=== PATIENT | male | born 1955 | race Caucasian/White ===

== ENCOUNTER → 2017-05-12 | Outpatient (CLI) | payer OTHER | END | disposition home or self-care (01) | LOC: KCIC 12:45 | DX: M25.531 Pain in right wrist (principal); M21.831 Other specified acquired deformities of right forearm; W19.XXXA Unspecified fall, initial encounter; Y93.89 Activity, other specified; Y92.89 Other specified places as the place of occurrence of the external cause; Y99.8 Other external cause status | CPT/HCPCS: 73110 ==

== ENCOUNTER 2018-08-31 12:14 | Inpatient (IN) | payer OTHER ==
[~2018-08-31] VITALS: Ht 167.6 cm; Wt 78.1 kg
[2018-08-31] MEDS ORDERED: IPRATRPIUM/ALBUTEROL 0.5/2.5MG 3 ML NEBU. NEB ONE (12:45)
[2018-08-31] MEDS ORDERED: methylPREDNISolone SOD SUCC PF 125 MG/2 ML VIAL. IV ONE (12:45)
--- NOTE | 2018-08-31 12:54 | RAD ---
EXAM: Chest, single view. HISTORY: Shortness of breath. COMPARISON: None. FINDINGS: A frontal view of the chest is obtained. There is no infiltrate, pleural effusion or pneumothorax. There is a prominent cardiac silhouette. There is a right internal jugular catheter overlying the superior vena cava. IMPRESSION: 1. Prominent cardiac silhouette, a component of which is due to portable technique. 2. Suspected right internal jugular catheter overlying the superior vena cava. No pneumothorax is seen. Electronically signed by: Jacqui Mccarty MD (08/31/2018 12:51 PM) [facility]
[2018-08-31 13:17] LABS: BASO % 0 % (0-3); EOS % 1 % (0-3); HEMATOCRIT 40.6 % (39.0-53.0); HEMOGLOBIN 13.1 g/dL (13.0-17.5); LYMPH # 0.9 x10^3/uL (1.0-4.8); LYMPH % 12 % (24-48); MEAN CORPUSCULAR HEMOGLOBIN 30 pg (25-35); MEAN CORPUSCULAR HGB CONC 32 g/dL (31-37); MEAN CORPUSCULAR VOLUME 92 fL (79-100); MONO # 0.8 x10^3/uL (0.0-1.1); MONO % 11 % (0-9); NEUT # 5.7 x10^3uL (1.8-7.7); NEUT % 76 % (31-73); PLATELET COUNT 113 x10^3/uL (140-400); RED CELL DISTRIBUTION WIDTH 13.8 % (11.5-14.5); WHITE BLOOD COUNT 7.5 x10^3/uL (4.0-11.0)
[2018-08-31 13:27] LABS: CALCIUM 8.7 mg/dL (8.5-10.1); CREATININE 0.8 mg/dL (0.7-1.3); GFR 97.3; POTASSIUM 3.7 mmol/L (3.5-5.1)
[2018-08-31 13:34] LABS: ALBUMIN 3.7 g/dL (3.4-5.0); TOTAL BILIRUBIN 0.4 mg/dL (0.2-1.0); TOTAL PROTEIN 7.4 g/dL (6.4-8.2)
[2018-08-31] MEDS ORDERED: DOXYCYCLINE HYCLATE 100 MG in IV DEXTROSE 5% 100ML 100 ML IV ONE (14:00)
[2018-08-31] MEDS ORDERED: ASPIRIN CHEWABLE 81 MG TABLET. PO ONE (14:00)
[2018-08-31] MEDS ORDERED: IOHEXOL 350 MG/ML 100 ML VIAL. IV ONE (14:15)
--- NOTE | 2018-08-31 14:29 | PDOC1 ---
History and Physical Date of Admission Date of Admission DATE: 08/31/18 TIME: 14:29 Identification/Chief Complaint Chief Complaint Patient is a 62 year old P/W SOB 4 DAYS AGO seen in ER NO CP NO FEVER , COUGHING INCREASING YELLOW SPUTUM SAT 84 IN TRIAGE. NOT ON HOME OXYGEN. SYMPTOMS WORSENING WITH TIME CT PE NEG FOR EMBOLUS. Past Medical History Past Medical History Past Medical History Past Medical History Past Medical History: COPD, Diabetes-Type II, Hypertension Past Surgical History: No Surgical History Alcohol Use: None Drug Use: None remote smoker Cardiovascular: HTN, Hyperlipidemia Pulmonary: COPD Musculoskeletal: Osteoarthritis Rheumatologic: No pertinent hx Infectious disease: No pertinent hx ENT: No pertinent hx Dermatology: No pertinent hx Family History Family History: Coronary Artery Disease, Hypertension Social History Smoke: Quit ALCOHOL: occassional Drugs: None Current Medications Current Medications Current Medications Albuterol/ Ipratropium (Duoneb) 3 ml 1X ONCE NEB Last administered on 08/31/18at 12:36; Start 08/31/18 at 12:45; Stop 08/31/18 at 13:36; Status DC Methylprednisolone Sodium Succinate (SOLU-Medrol 125MG VIAL) 125 mg 1X ONCE IV Last administered on 08/31/18at 13:52; Start 08/31/18 at 12:45; Stop 08/31/18 at 13:36; Status DC Doxycycline Hyclate 100 mg/ Dextrose 100 ml @ 50 mls/hr 1X ONCE IV Last administered on 08/31/18at 14:14; Start 08/31/18 at 14:00; Stop 08/31/18 at 15:59 Aspirin (Children'S Aspirin) 324 mg 1X ONCE PO Last administered on 08/31/18at 14:03; Start 08/31/18 at 14:00; Stop 08/31/18 at 14:01; Status DC Albuterol/ Ipratropium (Duoneb) 3 ml RTQID NEB ; Start 08/31/18 at 16:00; Stop 09/01/18 at 15:59 Iohexol (Omnipaque 350 Mg/ml) 90 ml 1X ONCE IV ; Start 08/31/18 at 14:15; Stop 08/31/18 at 14:16; Status DC Allergies Allergies: Coded Allergies: No Known Drug Allergies (Unverified , 08/31/18) ROS Review of System Review of Systems Review of Systems Constitutional: Denies fever or chills [] Eyes: Denies change in visual acuity, redness, or eye pain [] HENT: COUGH : Denies dysuria or hematuria [] PULM, SEE ABOVE HPI Musculoskeletal: Denies back pain or joint pain [] Integument: Denies rash or skin lesions [] Neurologic: Denies headache, focal weakness or sensory changes [] Endocrine: Denies polyuria or polydipsia [] 14 PT systems were reviewed and found to be within normal limits, except as documented General: YES: Fatigue PSYCHOLOGICAL ROS: No: Anxiety, Behavioral Disorder, Concentration difficultie, Decreased libido, Depression, Disorientation, Hallucinations, Hostility, Irritablity, Memory difficulties, Mood Swings, Obsessive thoughts, Physical abuse, Sexual abuse, Sleep disturbances, Suicidal ideation, Other Eyes: No Blurry vision, No Decreased vision, No Double vision, No Dry eyes, No Excessive tearing, No Eye Pain, No Itchy Eyes, No Loss of vision, No Photophobia, No Scotomata, No Uses contacts, No Uses glasses, No Other HEENT: No: Heacaches, Visual Changes, Hearing change, Nasal congestion, Nasal discharge, Oral lesions, Sinus pain, Sore Throat, Epistaxis, Sneezing, Snoring, Tinnitus, Vertigo, Vocal changes, Other ALLERGY AND IMMUNOLOGY: No: Hives, Insect Bite Sensitivity, Itchy/Watery Eyes, Nasal Congestion, Post Nasal Drip, Seasonal Allergies, Other Hematological and Lymphatic: No: Bleeding Problems, Blood Clots, Blood Transfusions, Brusing, Night Sweats, Pallor, Swollen Lymph Nodes, Other Respiratory: YES: Cough, Shortness of breath, SOB with excertion, Sputum Changes; No: Hemoptysis, Orthopnea, Pleuritic Pain, Stridor, Tachypnea, Wheezing, Other Cardiovascular: yes Palpitations Gastrointestinal: No Nausea, No Vomiting, No Abdominal Pain, No Diarrhea, No Constipation, No Melena, No Hematochezia, No Other Genitourinary: No Dysuria, No Frequency, No Incontinence, No Hematuria, No Retention, No Discharge, No Urgency, No Pain, No Flank Pain, No Other, No , No , No , No , No , No , No Musculoskeletal: No Gait Disturbance, No Joint Pain, No Joint Stiffness, No Joint Swelling, No Muscle Pain, No Muscular Weakness, No Pain In:, No Swelling In:, No Other Neurological: No Behavorial Changes, No Bowel/Bladder ControlChng, No Confusion, No Dizziness, No Gait Disturbance, No Headaches, No Impaired Coord/balance, No Memory Loss, No Numbness/Tingling, No Seizures, No Speech Problems, No Tremors, No Visual Changes, No Weakness, No Other Skin: No Dry Skin, No Eczema, No Hair Changes, No Lumps, No Mole Changes, No Mottling, No Nail Changes, No Pruritus, No Rash, No Skin Lesion Changes, No Other, No Acne Physical Exam Physical Exam Physical Exam Physical Exam Constitutional: Well developed, well nourished, MOD acute distress, non-toxic appearance. [] HENT: Normocephalic, atraumatic, bilateral external ears normal, oropharynx moist, no oral exudates, nose normal. [] Eyes: PERRLA, EOMI, conjunctiva normal, no discharge. [] Neck: Normal range of motion, no tenderness, supple, no stridor. [] Cardiovascular:Heart rate regular rhythm, no murmur BUT DIFFICULT EXAM Lungs & Thorax: QWHEEZING NOTED AND INCREASED RESP EFFORT Abdomen: Bowel sounds normal, soft, no tenderness, no masses, no pulsatile masses. [] Skin: Warm, dry, no erythema, no rash. [] Back SCOLIOSIS NOTED Extremities: No tenderness, no cyanosis, no clubbing, ROM intact, TRACE EDEMA Neurologic: Alert and oriented X 3, normal motor function, normal sensory function, no focal deficits noted. [] Psychologic: Affect normal, judgement normal, mood normal. [] General: Alert, Oriented X3, Cooperative, moderate distress HEENT: Atraumatic, PERRLA, EOMI, Mucous membr. moist/pink Lungs: Other (mod exp wheezesbilaterally) Heart: RRR Breasts: Not examined Abdomen: Normal bowel sounds, Soft Rectal Exam: not examined PELVIC: Examination not indicated Extremities: No cyanosis Neuro: Normal speech, Cranial nerves 3-12 NL Psych/Mental Status: Mental status NL, Mood NL Vitals Vitals Vital Signs Date Time Temp Pulse Resp B/P (MAP) Pulse Ox O2 Delivery O2 Flow Rate FiO2 08/31/18 12:37 97 Nasal Cannula 3.0 08/31/18 12:30 97.9 110 31 164/101 (122) 97.9 Labs Labs Laboratory Tests Test 08/31/18 13:05 White Blood Count 7.5 x10^3/uL (4.0-11.0) Red Blood Count 4.40 x10^6/uL (4.30-5.70) Hemoglobin 13.1 g/dL (13.0-17.5) Hematocrit 40.6 % (39.0-53.0) Mean Corpuscular Volume 92 fL (79-100) Mean Corpuscular Hemoglobin 30 pg (25-35) Mean Corpuscular Hemoglobin Concent 32 g/dL (31-37) Red Cell Distribution Width 13.8 % (11.5-14.5) Platelet Count 113 x10^3/uL (140-400) Neutrophils (%) (Auto) 76 % (31-73) Lymphocytes (%) (Auto) 12 % (24-48) Monocytes (%) (Auto) 11 % (0-9) Eosinophils (%) (Auto) 1 % (0-3) Basophils (%) (Auto) 0 % (0-3) Neutrophils # (Auto) 5.7 x10^3uL (1.8-7.7) Lymphocytes # (Auto) 0.9 x10^3/uL (1.0-4.8) Monocytes # (Auto) 0.8 x10^3/uL (0.0-1.1) Eosinophils # (Auto) 0.0 x10^3/uL (0.0-0.7) Basophils # (Auto) 0.0 x10^3/uL (0.0-0.2) Prothrombin Time 13.0 SEC (11.7-14.0) Prothromb Time International Ratio 1.0 (0.8-1.1) Sodium Level 137 mmol/L (136-145) Potassium Level 3.7 mmol/L (3.5-5.1) Chloride Level 98 mmol/L (98-107) Carbon Dioxide Level 31 mmol/L (21-32) Anion Gap 8 (6-14) Blood Urea Nitrogen 10 mg/dL (8-26) Creatinine 0.8 mg/dL (0.7-1.3) Estimated GFR (Cockcroft-Gault) 97.3 BUN/Creatinine Ratio 13 (6-20) Glucose Level 151 mg/dL (70-99) Lactic Acid Level 2.7 mmol/L (0.4-2.0) Calcium Level 8.7 mg/dL (8.5-10.1) Total Bilirubin 0.4 mg/dL (0.2-1.0) Aspartate Amino Transf (AST/SGOT) 31 U/L (15-37) Alanine Aminotransferase (ALT/SGPT) 92 U/L (16-63) Alkaline Phosphatase 63 U/L (46-116) Troponin I Quantitative 0.058 ng/mL (0.000-0.055) UM-Nrf-N-Type Natriuretic Peptide 5921 pg/mL (0-124) Total Protein 7.4 g/dL (6.4-8.2) Albumin 3.7 g/dL (3.4-5.0) Albumin/Globulin Ratio 1.0 (1.0-1.7) Laboratory Tests Test 08/31/18 13:05 White Blood Count 7.5 x10^3/uL (4.0-11.0) Red Blood Count 4.40 x10^6/uL (4.30-5.70) Hemoglobin 13.1 g/dL (13.0-17.5) Hematocrit 40.6 % (39.0-53.0) Mean Corpuscular Volume 92 fL (79-100) Mean Corpuscular Hemoglobin 30 pg (25-35) Mean Corpuscular Hemoglobin Concent 32 g/dL (31-37) Red Cell Distribution Width 13.8 % (11.5-14.5) Platelet Count 113 x10^3/uL (140-400) Neutrophils (%) (Auto) 76 % (31-73) Lymphocytes (%) (Auto) 12 % (24-48) Monocytes (%) (Auto) 11 % (0-9) Eosinophils (%) (Auto) 1 % (0-3) Basophils (%) (Auto) 0 % (0-3) Neutrophils # (Auto) 5.7 x10^3uL (1.8-7.7) Lymphocytes # (Auto) 0.9 x10^3/uL (1.0-4.8) Monocytes # (Auto) 0.8 x10^3/uL (0.0-1.1) Eosinophils # (Auto) 0.0 x10^3/uL (0.0-0.7) Basophils # (Auto) 0.0 x10^3/uL (0.0-0.2) Prothrombin Time 13.0 SEC (11.7-14.0) Prothromb Time International Ratio 1.0 (0.8-1.1) Sodium Level 137 mmol/L (136-145) Potassium Level 3.7 mmol/L (3.5-5.1) Chloride Level 98 mmol/L (98-107) Carbon Dioxide Level 31 mmol/L (21-32) Anion Gap 8 (6-14) Blood Urea Nitrogen 10 mg/dL (8-26) Creatinine 0.8 mg/dL (0.7-1.3) Estimated GFR (Cockcroft-Gault) 97.3 BUN/Creatinine Ratio 13 (6-20) Glucose Level 151 mg/dL (70-99) Lactic Acid Level 2.7 mmol/L (0.4-2.0) Calcium Level 8.7 mg/dL (8.5-10.1) Total Bilirubin 0.4 mg/dL (0.2-1.0) Aspartate Amino Transf (AST/SGOT) 31 U/L (15-37) Alanine Aminotransferase (ALT/SGPT) 92 U/L (16-63) Alkaline Phosphatase 63 U/L (46-116) Troponin I Quantitative 0.058 ng/mL (0.000-0.055) LR-Wiy-X-Type Natriuretic Peptide 5921 pg/mL (0-124) Total Protein 7.4 g/dL (6.4-8.2) Albumin 3.7 g/dL (3.4-5.0) Albumin/Globulin Ratio 1.0 (1.0-1.7) Images Images PROCEDURE: CT ANGIOGRAPHY CHEST Examination: CT angiography chest HISTORY: History of cough, shortness of breath COMPARISON: None available. TECHNIQUE: Axial CT angiographic images of chest were performed with IV contrast. Coronal and sagittal 3-D MIP reformats are performed. Exposure: One or more of the following individualized dose reduction techniques were utilized for this examination: 1. Automated exposure control 2. Adjustment of the mA and/or kV according to patient size 3. Use of iterative reconstruction technique FINDINGS: The central airways are patent. Mild cardiomegaly. The caliber of the aorta grossly appears unremarkable. There is no evidence of filling defect identified in the main pulmonary arterial trunk and right and left main pulmonary arteries and the visualized lobar, segmental branches of the pulmonary arteries. Coronary artery calcifications identified. Small pleural effusion identified in the left. Trace right pleural effusion. There is reflux of contrast into the hepatic veins. Minimal airspace opacities identified in the left lung base. The visualized liver, spleen, adrenals grossly appears unremarkable. Bony fusion of the lower thoracic vertebral bodies identified with kyphosis. Moderate degenerative changes thoracic spine. IMPRESSION: 1. No evidence of pulmonary embolism. 2. Coronary artery calcifications. 3. There is reflux of contrast into the hepatic veins. Correlate for elevated right heart pressures with mild congestive changes. 4. Mild left lung base airspace opacities likely atelectasis or infiltrates with trace bilateral pleural effusions. Electronically signed by: Lyle Lopez MD (08/31/2018 3:28 PM) [id number] EXAM: Chest, single view. HISTORY: Shortness of breath. COMPARISON: None. FINDINGS: A frontal view of the chest is obtained. There is no infiltrate, pleural effusion or pneumothorax. There is a prominent cardiac silhouette. There is a right internal jugular catheter overlying the superior vena cava. IMPRESSION: 1. Prominent cardiac silhouette, a component of which is due to portable technique. 2. Suspected right internal jugular catheter overlying the superior vena cava. No pneumothorax is seen. Electronically signed by: Jacqui Mccarty MD (08/31/2018 12:51 PM) [facility] VTE Prophylaxis Ordered VTE Prophylaxis Devices: Yes VTE Pharmacological Prophylaxi: Yes Assessment/Plan Assessment/Plan IMPRESSION: 1. acute hypoxic resp failure No evidence of pulmonary embolism. 2. Coronary artery calcifications. 3. reflux of contrast into the hepatic veins. Correlate for elevated right heart pressures with mild congestive changes. 4. lung base airspace opacities likely atelectasis or infiltrates with trace bilateral pleural effusions. 5. hypertensive urgency 6. ACUTE COPD EXAC 7. MILD elevation troponin i plan admit cvc icu bed serial troponin i pulm consult cardiology consult echo dvt prophylaxis iv steroids emperic iv doxy iv hydralazine 10mg q 4 hrs prn bp support 36 min cc time TERESE CORADO MD Aug 31, 2018 14:29
[2018-08-31 15:00] VITALS: BP 180/116
--- NOTE | 2018-08-31 15:11 | EKG ---
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 Electronically Signed On 09-04-2018 9:19:47 CDT by Jaguar Rodriguez
--- NOTE | 2018-08-31 15:20 | NUR ---
Patient arrived to room 263 via bed from ER at 1520. Patient A&OX4. No complaints of pain. The patient, SAE SMALLS, 62 y/o, M admitted by TERESE CORADO MD, was given written information regarding hospital policies, unit procedures and contact persons. Valuables were checked and noted. Will continue to monitor.
--- NOTE | 2018-08-31 15:31 | RAD ---
Examination: CT angiography chest HISTORY: History of cough, shortness of breath COMPARISON: None available. TECHNIQUE: Axial CT angiographic images of chest were performed with IV contrast. Coronal and sagittal 3-D MIP reformats are performed. Exposure: One or more of the following individualized dose reduction techniques were utilized for this examination: 1. Automated exposure control 2. Adjustment of the mA and/or kV according to patient size 3. Use of iterative reconstruction technique FINDINGS: The central airways are patent. Mild cardiomegaly. The caliber of the aorta grossly appears unremarkable. There is no evidence of filling defect identified in the main pulmonary arterial trunk and right and left main pulmonary arteries and the visualized lobar, segmental branches of the pulmonary arteries. Coronary artery calcifications identified. Small pleural effusion identified in the left. Trace right pleural effusion. There is reflux of contrast into the hepatic veins. Minimal airspace opacities identified in the left lung base. The visualized liver, spleen, adrenals grossly appears unremarkable. Bony fusion of the lower thoracic vertebral bodies identified with kyphosis. Moderate degenerative changes thoracic spine. IMPRESSION: 1. No evidence of pulmonary embolism. 2. Coronary artery calcifications. 3. There is reflux of contrast into the hepatic veins. Correlate for elevated right heart pressures with mild congestive changes. 4. Mild left lung base airspace opacities likely atelectasis or infiltrates with trace bilateral pleural effusions. Electronically signed by: Lyle Lopze MD (08/31/2018 3:28 PM) [facility]
[2018-08-31 15:37] VITALS: BP 175/101
[2018-08-31 15:54] VITALS: BP 172/98
[2018-08-31] MEDS ORDERED: LISI10TA2 PO (16:07)
[2018-08-31] MEDS ORDERED: METO-239 PO (16:07)
[2018-08-31] MEDS ORDERED: METF500T9 PO (16:07)
[2018-08-31] MEDS: IPRATRPIUM/ALBUTEROL 0.5/2.5MG 3 ML NEBU. NEB SCH ×4 (16:32→23:30)
--- NOTE | 2018-08-31 16:51 | PHYS DOC ---
Past Medical History Past Medical History: COPD, Diabetes-Type II, Hypertension Past Surgical History: No Surgical History Alcohol Use: None Drug Use: None Adult General Chief Complaint Chief Complaint: SHORTNESS OF BREATH HPI HPI Patient is a 62 year old P/W SOB 4 DAYS AGO GETTING WORSE NO CP NO FEVER SOME COUGHING INCREASING YELLOW SPUTUM SAT 84 IN TRIAGE. NOT ON HOME OXYGEN. NO OTHER COMPLAINTS SYMPTOMS WORSENING WITH TIME. MODERATE WORSE WITHE EXEDRTION. Review of Systems Review of Systems Constitutional: Denies fever or chills [] Eyes: Denies change in visual acuity, redness, or eye pain [] HENT: : Denies dysuria or hematuria [] Musculoskeletal: Denies back pain or joint pain [] Integument: Denies rash or skin lesions [] Neurologic: Denies headache, focal weakness or sensory changes [] Endocrine: Denies polyuria or polydipsia [] All other systems were reviewed and found to be within normal limits, except as documented in this note. Current Medications Current Medications Current Medications Medications (Trade) Dose Ordered Sig/Heath Start Time Stop Time Status Last Admin Dose Admin Albuterol/ Ipratropium (Duoneb) 3 ml 1X ONCE 08/31/18 12:45 08/31/18 13:36 DC 08/31/18 12:36 3 ML Methylprednisolone Sodium Succinate (SOLU-Medrol 125MG VIAL) 125 mg 1X ONCE 08/31/18 12:45 08/31/18 13:36 DC 08/31/18 13:52 125 MG Allergies Allergies Allergies Coded Allergies Type Severity Reaction Last Updated Verified No Known Drug Allergies 08/31/18 No Physical Exam Physical Exam Constitutional: Well developed, well nourished, no acute distress, non-toxic appearance. [] HENT: Normocephalic, atraumatic, bilateral external ears normal, oropharynx moist, no oral exudates, nose normal. [] Eyes: PERRLA, EOMI, conjunctiva normal, no discharge. [] Neck: Normal range of motion, no tenderness, supple, no stridor. [] Cardiovascular:Heart rate regular rhythm, no murmur BUT DIFFICULT EXAM Lungs & Thorax: QWHEEZING NOTED AND INCREASED RESP EFFORT Abdomen: Bowel sounds normal, soft, no tenderness, no masses, no pulsatile masses. [] Skin: Warm, dry, no erythema, no rash. [] Back SCOLIOSIS NOTED Extremities: No tenderness, no cyanosis, no clubbing, ROM intact, TRACE EDEMA Neurologic: Alert and oriented X 3, normal motor function, normal sensory function, no focal deficits noted. [] Psychologic: Affect normal, judgement normal, mood normal. [] Current Patient Data Vital Signs Vital Signs Date Time Temp Pulse Resp B/P (MAP) Pulse Ox O2 Delivery O2 Flow Rate FiO2 08/31/18 13:30 110 30 151/94 (113) 95 Nasal Cannula 2.0 08/31/18 12:30 97.9 97.9 Lab Values Laboratory Tests Test 08/31/18 13:05 White Blood Count 7.5 x10^3/uL (4.0-11.0) Red Blood Count 4.40 x10^6/uL (4.30-5.70) Hemoglobin 13.1 g/dL (13.0-17.5) Hematocrit 40.6 % (39.0-53.0) Mean Corpuscular Volume 92 fL (79-100) Mean Corpuscular Hemoglobin 30 pg (25-35) Mean Corpuscular Hemoglobin Concent 32 g/dL (31-37) Red Cell Distribution Width 13.8 % (11.5-14.5) Platelet Count 113 x10^3/uL (140-400) L Neutrophils (%) (Auto) 76 % (31-73) H Lymphocytes (%) (Auto) 12 % (24-48) L Monocytes (%) (Auto) 11 % (0-9) H Eosinophils (%) (Auto) 1 % (0-3) Basophils (%) (Auto) 0 % (0-3) Neutrophils # (Auto) 5.7 x10^3uL (1.8-7.7) Lymphocytes # (Auto) 0.9 x10^3/uL (1.0-4.8) L Monocytes # (Auto) 0.8 x10^3/uL (0.0-1.1) Eosinophils # (Auto) 0.0 x10^3/uL (0.0-0.7) Basophils # (Auto) 0.0 x10^3/uL (0.0-0.2) Prothrombin Time 13.0 SEC (11.7-14.0) Prothrombin Time INR 1.0 (0.8-1.1) Sodium Level 137 mmol/L (136-145) Potassium Level 3.7 mmol/L (3.5-5.1) Chloride Level 98 mmol/L (98-107) Carbon Dioxide Level 31 mmol/L (21-32) Anion Gap 8 (6-14) Blood Urea Nitrogen 10 mg/dL (8-26) Creatinine 0.8 mg/dL (0.7-1.3) Estimated GFR (Cockcroft-Gault) 97.3 BUN/Creatinine Ratio 13 (6-20) Glucose Level 151 mg/dL (70-99) H Lactic Acid Level 2.7 mmol/L (0.4-2.0) H Calcium Level 8.7 mg/dL (8.5-10.1) Total Bilirubin 0.4 mg/dL (0.2-1.0) Aspartate Amino Transferase (AST) 31 U/L (15-37) Alanine Aminotransferase (ALT) 92 U/L (16-63) H Alkaline Phosphatase 63 U/L (46-116) Troponin I Quantitative 0.058 ng/mL (0.000-0.055) MV-Qnn-Y-Type Natriuretic Peptide 5921 pg/mL (0-124) H Total Protein 7.4 g/dL (6.4-8.2) Albumin 3.7 g/dL (3.4-5.0) Albumin/Globulin Ratio 1.0 (1.0-1.7) Laboratory Tests 08/31/18 13:05 Laboratory Tests 08/31/18 13:05 EKG EKG SINUS TACH RATE 112 NO ACUTE ISCHEMIC CHANGES, NONSPECIFIC CHANGES NOTED ANTERIO RLY Radiology/Procedures Radiology/Procedures [] Impressions: IMPRESSION: 1. No evidence of pulmonary embolism. 2. Coronary artery calcifications. 3. There is reflux of contrast into the hepatic veins. Correlate for elevated right heart pressures with mild congestive changes. 4. Mild left lung base airspace opacities likely atelectasis or infiltrates with trace bilateral pleural effusions. Electronically signed by: Lyle Lopez MD (08/31/2018 3:28 PM) [facility] DICTATED and SIGNED BY: LYLE LOPEZ MD DATE: 08/31/18 1528 Course & Med Decision Making Course & Med Decision Making Pertinent Labs and Imaging studies reviewed. (See chart for details) []62-year-old male with a history of hypertension COPD not on oxygen presenting with shortness of breath and hypoxia troponin and BNP were elevated CT PE protocol negative acute CHF is definitely on the differential I spoke with Dr. Gu pulmonary consultation requested I GAVE ASA DOXY SOLUMEDROL. FURTHER TX PENDING CLINICAL COURSE. Patient was stable on nasal cannula oxygen in the emergency room and felt better after albuterol therapy Dragon Disclaimer Dragon Disclaimer This electronic medical record was generated, in whole or in part, using a voice recognition dictation system. Departure Departure Impression: Primary Impression: Hypoxia Disposition: 09 ADMITTED INPATIENT Admitting Physician: Tj Spencer Condition: STABLE Referrals: WENDI MULLER MD (PCP) YOLANDA TREVINO MD Aug 31, 2018 16:51
[2018-08-31] MEDS ORDERED: DEXTROSE 50% 25 GM / 50ML DISP.SYRIN. IV PRN (17:00)
[2018-08-31] MEDS ORDERED: hydrALAZINE 20 MG/ML VIAL. IVP PRN (17:45)
[2018-08-31] MEDS ORDERED: 0.9 % SODIUM CHLORIDE 3ML DISP.SYRIN. IV PRN (18:00)
[2018-08-31] MEDS ORDERED: SODIUM PHOSPHATES 19/7GM 133 ML ENEMA. PR PRN (18:00)
[2018-08-31] MEDS ORDERED: MAG HYDROX/ALUMINUM HYD/SIMETH 30 ML ORAL.SUSP PO PRN (18:00)
[2018-08-31] MEDS ORDERED: guaiFENesin ORAL 200 MG/10 ML LIQUID. PO PRN (18:00)
[2018-08-31] MEDS ORDERED: ONDANSETRON PF 4 MG/2 ML VIAL. IV PRN (18:00)
[2018-08-31] MEDS ORDERED: DOCUSATE SODIUM 100 MG CAPSULE. PO PRN (18:00)
[2018-08-31] MEDS ORDERED: ACETAMINOPHEN 325 MG TABLET. PO PRN (18:00)
[2018-08-31] MEDS ORDERED: cloNIDine HCL 0.1 MG TABLET PO PRN (18:00)
[2018-08-31] MEDS ORDERED: LORazepam 0.5 MG TABLET PO PRN (18:00)
[2018-08-31] MEDS: IV NORMAL SALINE 1000ML BAG 1,000 ML IV SCH ×3 (18:04→18:36)
--- NOTE | 2018-08-31 18:13 | PDOC ---
PULMONARY PROGRESS NOTES Vitals Vital Signs Date Time Temp Pulse Resp B/P (MAP) Pulse Ox O2 Delivery O2 Flow Rate FiO2 08/31/18 16:36 95 Nasal Cannula 2.0 08/31/18 15:54 112 172/98 (122) 08/31/18 15:00 98.2 20 98.2 Labs Laboratory Tests Test 08/31/18 13:05 08/31/18 15:55 08/31/18 16:55 White Blood Count 7.5 x10^3/uL (4.0-11.0) Red Blood Count 4.40 x10^6/uL (4.30-5.70) Hemoglobin 13.1 g/dL (13.0-17.5) Hematocrit 40.6 % (39.0-53.0) Mean Corpuscular Volume 92 fL (79-100) Mean Corpuscular Hemoglobin 30 pg (25-35) Mean Corpuscular Hemoglobin Concent 32 g/dL (31-37) Red Cell Distribution Width 13.8 % (11.5-14.5) Platelet Count 113 x10^3/uL (140-400) Neutrophils (%) (Auto) 76 % (31-73) Lymphocytes (%) (Auto) 12 % (24-48) Monocytes (%) (Auto) 11 % (0-9) Eosinophils (%) (Auto) 1 % (0-3) Basophils (%) (Auto) 0 % (0-3) Neutrophils # (Auto) 5.7 x10^3uL (1.8-7.7) Lymphocytes # (Auto) 0.9 x10^3/uL (1.0-4.8) Monocytes # (Auto) 0.8 x10^3/uL (0.0-1.1) Eosinophils # (Auto) 0.0 x10^3/uL (0.0-0.7) Basophils # (Auto) 0.0 x10^3/uL (0.0-0.2) Prothrombin Time 13.0 SEC (11.7-14.0) Prothromb Time International Ratio 1.0 (0.8-1.1) Sodium Level 137 mmol/L (136-145) Potassium Level 3.7 mmol/L (3.5-5.1) Chloride Level 98 mmol/L (98-107) Carbon Dioxide Level 31 mmol/L (21-32) Anion Gap 8 (6-14) Blood Urea Nitrogen 10 mg/dL (8-26) Creatinine 0.8 mg/dL (0.7-1.3) Estimated GFR (Cockcroft-Gault) 97.3 BUN/Creatinine Ratio 13 (6-20) Glucose Level 151 mg/dL (70-99) Lactic Acid Level 2.7 mmol/L (0.4-2.0) 1.3 mmol/L (0.4-2.0) Calcium Level 8.7 mg/dL (8.5-10.1) Total Bilirubin 0.4 mg/dL (0.2-1.0) Aspartate Amino Transf (AST/SGOT) 31 U/L (15-37) Alanine Aminotransferase (ALT/SGPT) 92 U/L (16-63) Alkaline Phosphatase 63 U/L (46-116) Troponin I Quantitative 0.058 ng/mL (0.000-0.055) VN-Mhs-Z-Type Natriuretic Peptide 5921 pg/mL (0-124) Total Protein 7.4 g/dL (6.4-8.2) Albumin 3.7 g/dL (3.4-5.0) Albumin/Globulin Ratio 1.0 (1.0-1.7) Glucose (Fingerstick) 193 mg/dL (70-99) Laboratory Tests Test 08/31/18 13:05 08/31/18 15:55 08/31/18 16:55 White Blood Count 7.5 x10^3/uL (4.0-11.0) Red Blood Count 4.40 x10^6/uL (4.30-5.70) Hemoglobin 13.1 g/dL (13.0-17.5) Hematocrit 40.6 % (39.0-53.0) Mean Corpuscular Volume 92 fL (79-100) Mean Corpuscular Hemoglobin 30 pg (25-35) Mean Corpuscular Hemoglobin Concent 32 g/dL (31-37) Red Cell Distribution Width 13.8 % (11.5-14.5) Platelet Count 113 x10^3/uL (140-400) Neutrophils (%) (Auto) 76 % (31-73) Lymphocytes (%) (Auto) 12 % (24-48) Monocytes (%) (Auto) 11 % (0-9) Eosinophils (%) (Auto) 1 % (0-3) Basophils (%) (Auto) 0 % (0-3) Neutrophils # (Auto) 5.7 x10^3uL (1.8-7.7) Lymphocytes # (Auto) 0.9 x10^3/uL (1.0-4.8) Monocytes # (Auto) 0.8 x10^3/uL (0.0-1.1) Eosinophils # (Auto) 0.0 x10^3/uL (0.0-0.7) Basophils # (Auto) 0.0 x10^3/uL (0.0-0.2) Prothrombin Time 13.0 SEC (11.7-14.0) Prothromb Time International Ratio 1.0 (0.8-1.1) Sodium Level 137 mmol/L (136-145) Potassium Level 3.7 mmol/L (3.5-5.1) Chloride Level 98 mmol/L (98-107) Carbon Dioxide Level 31 mmol/L (21-32) Anion Gap 8 (6-14) Blood Urea Nitrogen 10 mg/dL (8-26) Creatinine 0.8 mg/dL (0.7-1.3) Estimated GFR (Cockcroft-Gault) 97.3 BUN/Creatinine Ratio 13 (6-20) Glucose Level 151 mg/dL (70-99) Lactic Acid Level 2.7 mmol/L (0.4-2.0) 1.3 mmol/L (0.4-2.0) Calcium Level 8.7 mg/dL (8.5-10.1) Total Bilirubin 0.4 mg/dL (0.2-1.0) Aspartate Amino Transf (AST/SGOT) 31 U/L (15-37) Alanine Aminotransferase (ALT/SGPT) 92 U/L (16-63) Alkaline Phosphatase 63 U/L (46-116) Troponin I Quantitative 0.058 ng/mL (0.000-0.055) GK-Vke-I-Type Natriuretic Peptide 5921 pg/mL (0-124) Total Protein 7.4 g/dL (6.4-8.2) Albumin 3.7 g/dL (3.4-5.0) Albumin/Globulin Ratio 1.0 (1.0-1.7) Glucose (Fingerstick) 193 mg/dL (70-99) Medications Active Scripts Medications Dose Route/Sig Max Daily Dose Days Date Category Metformin Hcl Er (Metformin Hcl) 500 Mg Tab.er.24h 500 Mg PO DAILYWBKFT 08/31/18 Reported Metoprolol Succinate ( Xl ) (Metoprolol Succinate) 25 Mg Tab.er.24h 1 Tab PO DAILY 08/31/18 Reported Lisinopril 10 Mg Tablet 1 Tab PO DAILY 08/31/18 Reported Impression . DICTATED PNEUMONIA AECOPD HERNANDEZ AVILES MD Aug 31, 2018 18:13
[2018-08-31] MEDS ORDERED: IV NORMAL SALINE 500ML BAG 500 ML IV PRN (18:15)
[2018-08-31] MEDS: cefTRIAXone IV Push 1 GM VIAL. IVP SCH (18:39)
[2018-08-31 18:41] LABS: FIBRINOGEN 560 mg/dL (200-440); PARTIAL THROMBOPLASTIN TIME 32 SEC (24-38)
[2018-08-31 19:40] VITALS: BP 161/78
[2018-08-31] MEDS: DOXYCYCLINE HYCLATE 100 MG in IV DEXTROSE 5% 100ML 100 ML IV SCH (21:06)
[2018-08-31] MEDS: methylPREDNISolone SOD SUCC PF 125 MG/2 ML VIAL. IV SCH (21:08)
[2018-08-31] MEDS: ENOXAPARIN 40 MG/0.4 ML SYRINGE. SQ SCH (21:09)
[2018-08-31] MEDS: INSULIN LISPRO 300 UNITS/3 ML INSULN.PEN. SQ SCH (21:23)
[2018-08-31 22:50] VITALS: BP 133/64
[2018-08-31 23:18] LABS: BILIRUBIN,URINE NEGATIVE (NEG); CLARITY,URINE CLEAR; COLOR,URINE YELLOW; NITRITE,URINE NEGATIVE (NEG); PROTEIN,URINE NEGATIVE (NEG-TRACE)
[2018-08-31 23:24] LABS: BACTERIA,URINE 0 /HPF (0-FEW); RBC,URINE OCC /HPF (0-2); SQUAMOUS EPITHELIAL CELL,UR OCC /LPF; WBC,URINE OCC /HPF (0-4)
[2018-09-01 03:00] VITALS: BP 125/63
[2018-09-01] MEDS: IPRATRPIUM/ALBUTEROL 0.5/2.5MG 3 ML NEBU. NEB SCH ×5 (03:15→20:23)
[2018-09-01 05:00] LABS: BASO % 0 % (0-3); EOS % 0 % (0-3); HEMATOCRIT 36.2 % (39.0-53.0); HEMOGLOBIN 11.8 g/dL (13.0-17.5); LYMPH # 0.4 x10^3/uL (1.0-4.8); LYMPH % 8 % (24-48); MEAN CORPUSCULAR HEMOGLOBIN 30 pg (25-35); MEAN CORPUSCULAR HGB CONC 33 g/dL (31-37); MEAN CORPUSCULAR VOLUME 92 fL (79-100); MONO # 0.2 x10^3/uL (0.0-1.1); MONO % 4 % (0-9); NEUT # 5.1 x10^3uL (1.8-7.7); NEUT % 89 % (31-73); PLATELET COUNT 114 x10^3/uL (140-400); RED BLOOD COUNT 3.95 x10^6/uL (4.30-5.70); RED CELL DISTRIBUTION WIDTH 13.8 % (11.5-14.5); WHITE BLOOD COUNT 5.8 x10^3/uL (4.0-11.0)
[2018-09-01 05:19] LABS: CALCIUM 8.5 mg/dL (8.5-10.1); CREATININE 0.8 mg/dL (0.7-1.3); GFR 97.3; POTASSIUM 3.5 mmol/L (3.5-5.1)
[2018-09-01] MEDS: IV NORMAL SALINE 1000ML BAG 1,000 ML IV SCH (05:45)
[2018-09-01] MEDS: methylPREDNISolone SOD SUCC PF 125 MG/2 ML VIAL. IV SCH ×3 (05:46→21:02)
[2018-09-01 07:00] VITALS: BP 163/91
[2018-09-01 08:23] LABS: CHOLESTEROL/HDL RATIO 3.9
[2018-09-01] MEDS: LISINOPRIL 10 MG TABLET PO SCH (09:25)
[2018-09-01] MEDS: METOPROLOL SUCC 24HR ER 25 MG TAB.ER.24H. PO SCH (09:25)
--- NOTE | 2018-09-01 09:25 | PDOC ---
PULMONARY PROGRESS NOTES Subjective ABOUT THE SAME STILL SOA Vitals Vital Signs Date Time Temp Pulse Resp B/P (MAP) Pulse Ox O2 Delivery O2 Flow Rate FiO2 09/01/18 08:10 97 Nasal Cannula 2.0 09/01/18 07:00 97.9 107 18 163/91 (115) 97.9 ROS: No Nausea, No Chest Pain, No Abdominal Pain, No Increase Cough General: Alert Lungs: Wheezing Cardiovascular: S1, S2 Abdomen: Soft Neuro Exam: Alert Extremities: No Edema Skin: Warm Labs Laboratory Tests Test 08/31/18 13:05 08/31/18 15:55 08/31/18 16:55 08/31/18 18:15 White Blood Count 7.5 x10^3/uL (4.0-11.0) Red Blood Count 4.40 x10^6/uL (4.30-5.70) Hemoglobin 13.1 g/dL (13.0-17.5) Hematocrit 40.6 % (39.0-53.0) Mean Corpuscular Volume 92 fL (79-100) Mean Corpuscular Hemoglobin 30 pg (25-35) Mean Corpuscular Hemoglobin Concent 32 g/dL (31-37) Red Cell Distribution Width 13.8 % (11.5-14.5) Platelet Count 113 x10^3/uL (140-400) Neutrophils (%) (Auto) 76 % (31-73) Lymphocytes (%) (Auto) 12 % (24-48) Monocytes (%) (Auto) 11 % (0-9) Eosinophils (%) (Auto) 1 % (0-3) Basophils (%) (Auto) 0 % (0-3) Neutrophils # (Auto) 5.7 x10^3uL (1.8-7.7) Lymphocytes # (Auto) 0.9 x10^3/uL (1.0-4.8) Monocytes # (Auto) 0.8 x10^3/uL (0.0-1.1) Eosinophils # (Auto) 0.0 x10^3/uL (0.0-0.7) Basophils # (Auto) 0.0 x10^3/uL (0.0-0.2) Prothrombin Time 13.0 SEC (11.7-14.0) Prothromb Time International Ratio 1.0 (0.8-1.1) Sodium Level 137 mmol/L (136-145) Potassium Level 3.7 mmol/L (3.5-5.1) Chloride Level 98 mmol/L (98-107) Carbon Dioxide Level 31 mmol/L (21-32) Anion Gap 8 (6-14) Blood Urea Nitrogen 10 mg/dL (8-26) Creatinine 0.8 mg/dL (0.7-1.3) Estimated GFR (Cockcroft-Gault) 97.3 BUN/Creatinine Ratio 13 (6-20) Glucose Level 151 mg/dL (70-99) Lactic Acid Level 2.7 mmol/L (0.4-2.0) 1.3 mmol/L (0.4-2.0) Calcium Level 8.7 mg/dL (8.5-10.1) Total Bilirubin 0.4 mg/dL (0.2-1.0) Aspartate Amino Transf (AST/SGOT) 31 U/L (15-37) Alanine Aminotransferase (ALT/SGPT) 92 U/L (16-63) Alkaline Phosphatase 63 U/L (46-116) Troponin I Quantitative 0.058 ng/mL (0.000-0.055) KC-Irk-F-Type Natriuretic Peptide 5921 pg/mL (0-124) Total Protein 7.4 g/dL (6.4-8.2) Albumin 3.7 g/dL (3.4-5.0) Albumin/Globulin Ratio 1.0 (1.0-1.7) Glucose (Fingerstick) 193 mg/dL (70-99) Activated Partial Thromboplast Time 32 SEC (24-38) Fibrinogen 560 mg/dL (200-440) Procalcitonin 0.15 ng/mL (0.00-0.10) Test 08/31/18 20:48 08/31/18 22:15 09/01/18 04:20 09/01/18 07:34 Glucose (Fingerstick) 316 mg/dL (70-99) 176 mg/dL (70-99) Urine Collection Type Unknown Urine Color Yellow Urine Clarity Clear Urine pH 6.0 Urine Specific [place] 1.025 Urine Protein Negative mg/dL (NEG-TRACE) Urine Glucose (UA) >=1000 mg/dL (NEG) Urine Ketones (Stick) Negative mg/dL (NEG) Urine Blood Negative (NEG) Urine Nitrite Negative (NEG) Urine Bilirubin Negative (NEG) Urine Urobilinogen Dipstick 1.0 mg/dL (0.2 mg/dL) Urine Leukocyte Esterase Negative (NEG) Urine RBC Occ /HPF (0-2) Urine WBC Occ /HPF (0-4) Urine Squamous Epithelial Cells Occ /LPF Urine Bacteria 0 /HPF (0-FEW) White Blood Count 5.8 x10^3/uL (4.0-11.0) Red Blood Count 3.95 x10^6/uL (4.30-5.70) Hemoglobin 11.8 g/dL (13.0-17.5) Hematocrit 36.2 % (39.0-53.0) Mean Corpuscular Volume 92 fL (79-100) Mean Corpuscular Hemoglobin 30 pg (25-35) Mean Corpuscular Hemoglobin Concent 33 g/dL (31-37) Red Cell Distribution Width 13.8 % (11.5-14.5) Platelet Count 114 x10^3/uL (140-400) Neutrophils (%) (Auto) 89 % (31-73) Lymphocytes (%) (Auto) 8 % (24-48) Monocytes (%) (Auto) 4 % (0-9) Eosinophils (%) (Auto) 0 % (0-3) Basophils (%) (Auto) 0 % (0-3) Neutrophils # (Auto) 5.1 x10^3uL (1.8-7.7) Lymphocytes # (Auto) 0.4 x10^3/uL (1.0-4.8) Monocytes # (Auto) 0.2 x10^3/uL (0.0-1.1) Eosinophils # (Auto) 0.0 x10^3/uL (0.0-0.7) Basophils # (Auto) 0.0 x10^3/uL (0.0-0.2) Sodium Level 139 mmol/L (136-145) Potassium Level 3.5 mmol/L (3.5-5.1) Chloride Level 101 mmol/L (98-107) Carbon Dioxide Level 30 mmol/L (21-32) Anion Gap 8 (6-14) Blood Urea Nitrogen 12 mg/dL (8-26) Creatinine 0.8 mg/dL (0.7-1.3) Estimated GFR (Cockcroft-Gault) 97.3 Glucose Level 192 mg/dL (70-99) Calcium Level 8.5 mg/dL (8.5-10.1) Troponin I Quantitative 0.044 ng/mL (0.000-0.055) Triglycerides Level 94 mg/dL (0-150) Cholesterol Level 155 mg/dL (0-200) LDL Cholesterol, Calculated 96 mg/dL (0-100) VLDL Cholesterol, Calculated 19 mg/dL (0-40) Non-HDL Cholesterol Calculated 115 mg/dL (0-129) HDL Cholesterol 40 mg/dL (40-60) Cholesterol/HDL Ratio 3.9 Laboratory Tests Test 08/31/18 13:05 08/31/18 15:55 08/31/18 16:55 08/31/18 18:15 White Blood Count 7.5 x10^3/uL (4.0-11.0) Red Blood Count 4.40 x10^6/uL (4.30-5.70) Hemoglobin 13.1 g/dL (13.0-17.5) Hematocrit 40.6 % (39.0-53.0) Mean Corpuscular Volume 92 fL (79-100) Mean Corpuscular Hemoglobin 30 pg (25-35) Mean Corpuscular Hemoglobin Concent 32 g/dL (31-37) Red Cell Distribution Width 13.8 % (11.5-14.5) Platelet Count 113 x10^3/uL (140-400) Neutrophils (%) (Auto) 76 % (31-73) Lymphocytes (%) (Auto) 12 % (24-48) Monocytes (%) (Auto) 11 % (0-9) Eosinophils (%) (Auto) 1 % (0-3) Basophils (%) (Auto) 0 % (0-3) Neutrophils # (Auto) 5.7 x10^3uL (1.8-7.7) Lymphocytes # (Auto) 0.9 x10^3/uL (1.0-4.8) Monocytes # (Auto) 0.8 x10^3/uL (0.0-1.1) Eosinophils # (Auto) 0.0 x10^3/uL (0.0-0.7) Basophils # (Auto) 0.0 x10^3/uL (0.0-0.2) Prothrombin Time 13.0 SEC (11.7-14.0) Prothromb Time International Ratio 1.0 (0.8-1.1) Sodium Level 137 mmol/L (136-145) Potassium Level 3.7 mmol/L (3.5-5.1) Chloride Level 98 mmol/L (98-107) Carbon Dioxide Level 31 mmol/L (21-32) Anion Gap 8 (6-14) Blood Urea Nitrogen 10 mg/dL (8-26) Creatinine 0.8 mg/dL (0.7-1.3) Estimated GFR (Cockcroft-Gault) 97.3 BUN/Creatinine Ratio 13 (6-20) Glucose Level 151 mg/dL (70-99) Lactic Acid Level 2.7 mmol/L (0.4-2.0) 1.3 mmol/L (0.4-2.0) Calcium Level 8.7 mg/dL (8.5-10.1) Total Bilirubin 0.4 mg/dL (0.2-1.0) Aspartate Amino Transf (AST/SGOT) 31 U/L (15-37) Alanine Aminotransferase (ALT/SGPT) 92 U/L (16-63) Alkaline Phosphatase 63 U/L (46-116) Troponin I Quantitative 0.058 ng/mL (0.000-0.055) VA-Bmx-B-Type Natriuretic Peptide 5921 pg/mL (0-124) Total Protein 7.4 g/dL (6.4-8.2) Albumin 3.7 g/dL (3.4-5.0) Albumin/Globulin Ratio 1.0 (1.0-1.7) Glucose (Fingerstick) 193 mg/dL (70-99) Activated Partial Thromboplast Time 32 SEC (24-38) Fibrinogen 560 mg/dL (200-440) Procalcitonin 0.15 ng/mL (0.00-0.10) Test 08/31/18 20:48 08/31/18 22:15 09/01/18 04:20 09/01/18 07:34 Glucose (Fingerstick) 316 mg/dL (70-99) 176 mg/dL (70-99) Urine Collection Type Unknown Urine Color Yellow Urine Clarity Clear Urine pH 6.0 Urine Specific [place] 1.025 Urine Protein Negative mg/dL (NEG-TRACE) Urine Glucose (UA) >=1000 mg/dL (NEG) Urine Ketones (Stick) Negative mg/dL (NEG) Urine Blood Negative (NEG) Urine Nitrite Negative (NEG) Urine Bilirubin Negative (NEG) Urine Urobilinogen Dipstick 1.0 mg/dL (0.2 mg/dL) Urine Leukocyte Esterase Negative (NEG) Urine RBC Occ /HPF (0-2) Urine WBC Occ /HPF (0-4) Urine Squamous Epithelial Cells Occ /LPF Urine Bacteria 0 /HPF (0-FEW) White Blood Count 5.8 x10^3/uL (4.0-11.0) Red Blood Count 3.95 x10^6/uL (4.30-5.70) Hemoglobin 11.8 g/dL (13.0-17.5) Hematocrit 36.2 % (39.0-53.0) Mean Corpuscular Volume 92 fL (79-100) Mean Corpuscular Hemoglobin 30 pg (25-35) Mean Corpuscular Hemoglobin Concent 33 g/dL (31-37) Red Cell Distribution Width 13.8 % (11.5-14.5) Platelet Count 114 x10^3/uL (140-400) Neutrophils (%) (Auto) 89 % (31-73) Lymphocytes (%) (Auto) 8 % (24-48) Monocytes (%) (Auto) 4 % (0-9) Eosinophils (%) (Auto) 0 % (0-3) Basophils (%) (Auto) 0 % (0-3) Neutrophils # (Auto) 5.1 x10^3uL (1.8-7.7) Lymphocytes # (Auto) 0.4 x10^3/uL (1.0-4.8) Monocytes # (Auto) 0.2 x10^3/uL (0.0-1.1) Eosinophils # (Auto) 0.0 x10^3/uL (0.0-0.7) Basophils # (Auto) 0.0 x10^3/uL (0.0-0.2) Sodium Level 139 mmol/L (136-145) Potassium Level 3.5 mmol/L (3.5-5.1) Chloride Level 101 mmol/L (98-107) Carbon Dioxide Level 30 mmol/L (21-32) Anion Gap 8 (6-14) Blood Urea Nitrogen 12 mg/dL (8-26) Creatinine 0.8 mg/dL (0.7-1.3) Estimated GFR (Cockcroft-Gault) 97.3 Glucose Level 192 mg/dL (70-99) Calcium Level 8.5 mg/dL (8.5-10.1) Troponin I Quantitative 0.044 ng/mL (0.000-0.055) Triglycerides Level 94 mg/dL (0-150) Cholesterol Level 155 mg/dL (0-200) LDL Cholesterol, Calculated 96 mg/dL (0-100) VLDL Cholesterol, Calculated 19 mg/dL (0-40) Non-HDL Cholesterol Calculated 115 mg/dL (0-129) HDL Cholesterol 40 mg/dL (40-60) Cholesterol/HDL Ratio 3.9 Medications Active Scripts Medications Dose Route/Sig Max Daily Dose Days Date Category Metformin Hcl Er (Metformin Hcl) 500 Mg Tab.er.24h 500 Mg PO DAILYWBKFT 08/31/18 Reported Metoprolol Succinate ( Xl ) (Metoprolol Succinate) 25 Mg Tab.er.24h 1 Tab PO DAILY 08/31/18 Reported Lisinopril 10 Mg Tablet 1 Tab PO DAILY 08/31/18 Reported Impression . : 1. Abnormal CT compatible with pneumonia. 2. Suspect pneumonia, suspect gram negative. 3. Acute exacerbation of chronic obstructive pulmonary disease. 4. Acute respiratory failure. 5. Severe scoliosis. I do appreciate the privilege in sharing in the patient's care. 1. No evidence of pulmonary embolism. 2. Coronary artery calcifications. 3. There is reflux of contrast into the hepatic veins. Correlate for elevated right heart pressures with mild congestive changes. 4. Mild left lung base airspace opacities likely atelectasis or infiltrates with trace bilateral pleural effusions. Plan . STEROIDS NEB SCOLIOSIS IS CONTRIBUTING TO SOA UP TO CHAIR WILL FOLLOW HERNANDEZ AVILES MD Sep 01, 2018 09:25
[2018-09-01] MEDS: DOXYCYCLINE HYCLATE 100 MG in IV DEXTROSE 5% 100ML 100 ML IV SCH ×2 (09:27→21:02)
[2018-09-01] MEDS: INSULIN LISPRO 300 UNITS/3 ML INSULN.PEN. SQ SCH ×3 (09:33→18:49)
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
[2018-09-01] MEDS ORDERED: FUROSEMIDE 40 MG TABLET. PO ONE (10:00)
[2018-09-01] MEDS: ASPIRIN ENTERIC COATED 81 MG TABLET.DR. PO SCH (10:08)
[2018-09-01 11:00] VITALS: BP 147/75
--- NOTE | 2018-09-01 12:44 | CONS ---
DATE OF CONSULTATION: 08/31/2018 ATTENDING PHYSICIAN: Tj Gu MD. COMPUGRAPH OPERATOR: Hernandez Aviles MD. REASON FOR CONSULTATION: The patient is seen in pulmonary consultation at the request of Dr. Gu for increasing shortness of air. HISTORY OF PRESENT ILLNESS: The patient is a 62-year-old that went to see his primary care doctor, Dr. Joe Castañeda with a 2-3-day history of cough and mucus production. He quit tobacco 16 years ago. He does not experience acute exacerbation of COPD. The patient also had severe scoliosis. He was having a difficult time performing activities of daily living. He was admitted. I was asked to see him in consultation. PAST MEDICAL HISTORY: AFib, hypertension, COPD, previous pneumonia, diabetes, scoliosis. FAMILY HISTORY: Father had lung cancer, from complications of heart disease. Mother with breast cancer. CURRENT MEDICATION: List was reviewed. ALLERGIES: No known drug allergies. SOCIAL HISTORY: He continues to work, quit tobacco 18 years ago. PAST SURGICAL HISTORY: Status post hernia repair. REVIEW OF SYSTEMS: As indicated above, otherwise, a 10-point system was reviewed and negative. PHYSICAL EXAMINATION: VITAL SIGNS: On 2 L of oxygen supplementation, saturation greater than 92%. HEENT: Eyes, the sclerae were nonicteric. NECK: Jugular venous distention was not elevated. No lymphadenopathy. CHEST: Full expansion. LUNGS: Coarse breath sounds, poor airflow with expiratory wheeze. CARDIOVASCULAR: Regular rate and rhythm with S1, S2, no S3. ABDOMEN: Soft, nontender, nondistended. EXTREMITIES: No clubbing, cyanosis or edema. LABORATORY DATA: Reviewed. White count was normal, hemoglobin and hematocrit were noted. Electrolytes were noted. Lactic acid level was elevated. Troponin was elevated. BNP was elevated. Chest x-ray revealed no significant infiltrates. CT angiogram was performed. No evidence of PE. There was left lung airspace opacity and a trace effusion. IMPRESSION AND PLAN: 1. Abnormal CT compatible with pneumonia. 2. Suspect pneumonia, suspect gram negative. 3. Acute exacerbation of chronic obstructive pulmonary disease. 4. Acute respiratory failure. 5. Severe scoliosis. 6. Empiric antibiotics. 7. Steroids. I do appreciate the privilege in sharing in the patient's care. HERNANDEZ AVILES MD DR: BOZENA/michelle JOB#: [id number] / [id number]
--- NOTE | 2018-09-01 13:42 | PDOC ---
PROGRESS NOTES History of Present Illness History of Present Illness VTE Prophylaxis Ordered VTE Prophylaxis Devices: Yes VTE Pharmacological Prophylaxi: Yes Assessment/Plan Assessment/Plan IMPRESSION: 1. acute hypoxic resp failure No evidence of pulmonary embolism. 2. Coronary artery calcifications. 3. reflux of contrast into the hepatic veins. Correlate for elevated right heart pressures with mild congestive changes. 4. lung base airspace opacities likely atelectasis or infiltrates with trace bilateral pleural effusions. 5. hypertensive urgency 6. ACUTE COPD EXAC 7. MILD elevation troponin i plan admit cvc icu bed serial troponin i pulm consult cardiology consult echo dvt prophylaxis iv steroids emperic iv doxy iv hydralazine 10mg q 4 hrs prn bp support 46 min pt exam, chart review, > 50% of time spent with exam, chart review, pt care coordination Vitals Vitals Vital Signs Date Time Temp Pulse Resp B/P (MAP) Pulse Ox O2 Delivery O2 Flow Rate FiO2 09/01/18 11:59 100 Nasal Cannula 2.0 09/01/18 11:00 98.3 105 18 147/75 (99) 98.3 Physical Exam General: Alert, Oriented X3, Cooperative, No acute distress, mild distress Heart: Regular rate (SR), Normal S1, Normal S2, Other (2/6 systolic murmur to LLS border) Lungs: Crackles Abdomen: Soft Extremities: No cyanosis, Other (1+ bilateral LE pitting edema) Skin: No breakdown, No significant lesion Labs LABS Laboratory Tests Test 08/31/18 15:55 08/31/18 16:55 08/31/18 18:15 08/31/18 20:48 Lactic Acid Level 1.3 mmol/L (0.4-2.0) Glucose (Fingerstick) 193 mg/dL (70-99) 316 mg/dL (70-99) Activated Partial Thromboplast Time 32 SEC (24-38) Fibrinogen 560 mg/dL (200-440) Procalcitonin 0.15 ng/mL (0.00-0.10) Test 08/31/18 22:15 09/01/18 04:20 09/01/18 07:34 09/01/18 11:24 Urine Collection Type Unknown Urine Color Yellow Urine Clarity Clear Urine pH 6.0 Urine Specific [place] 1.025 Urine Protein Negative mg/dL (NEG-TRACE) Urine Glucose (UA) >=1000 mg/dL (NEG) Urine Ketones (Stick) Negative mg/dL (NEG) Urine Blood Negative (NEG) Urine Nitrite Negative (NEG) Urine Bilirubin Negative (NEG) Urine Urobilinogen Dipstick 1.0 mg/dL (0.2 mg/dL) Urine Leukocyte Esterase Negative (NEG) Urine RBC Occ /HPF (0-2) Urine WBC Occ /HPF (0-4) Urine Squamous Epithelial Cells Occ /LPF Urine Bacteria 0 /HPF (0-FEW) White Blood Count 5.8 x10^3/uL (4.0-11.0) Red Blood Count 3.95 x10^6/uL (4.30-5.70) Hemoglobin 11.8 g/dL (13.0-17.5) Hematocrit 36.2 % (39.0-53.0) Mean Corpuscular Volume 92 fL (79-100) Mean Corpuscular Hemoglobin 30 pg (25-35) Mean Corpuscular Hemoglobin Concent 33 g/dL (31-37) Red Cell Distribution Width 13.8 % (11.5-14.5) Platelet Count 114 x10^3/uL (140-400) Neutrophils (%) (Auto) 89 % (31-73) Lymphocytes (%) (Auto) 8 % (24-48) Monocytes (%) (Auto) 4 % (0-9) Eosinophils (%) (Auto) 0 % (0-3) Basophils (%) (Auto) 0 % (0-3) Neutrophils # (Auto) 5.1 x10^3uL (1.8-7.7) Lymphocytes # (Auto) 0.4 x10^3/uL (1.0-4.8) Monocytes # (Auto) 0.2 x10^3/uL (0.0-1.1) Eosinophils # (Auto) 0.0 x10^3/uL (0.0-0.7) Basophils # (Auto) 0.0 x10^3/uL (0.0-0.2) Sodium Level 139 mmol/L (136-145) Potassium Level 3.5 mmol/L (3.5-5.1) Chloride Level 101 mmol/L (98-107) Carbon Dioxide Level 30 mmol/L (21-32) Anion Gap 8 (6-14) Blood Urea Nitrogen 12 mg/dL (8-26) Creatinine 0.8 mg/dL (0.7-1.3) Estimated GFR (Cockcroft-Gault) 97.3 Glucose Level 192 mg/dL (70-99) Calcium Level 8.5 mg/dL (8.5-10.1) Troponin I Quantitative 0.044 ng/mL (0.000-0.055) Triglycerides Level 94 mg/dL (0-150) Cholesterol Level 155 mg/dL (0-200) LDL Cholesterol, Calculated 96 mg/dL (0-100) VLDL Cholesterol, Calculated 19 mg/dL (0-40) Non-HDL Cholesterol Calculated 115 mg/dL (0-129) HDL Cholesterol 40 mg/dL (40-60) Cholesterol/HDL Ratio 3.9 Glucose (Fingerstick) 176 mg/dL (70-99) 242 mg/dL (70-99) Assessment and Plan Assessmemt and Plan Problems Medical Problems: (1) Hypoxia Status: Acute Comment Review of Relevant I have reviewed the following items robert (where applicable) has been applied. Labs Laboratory Tests Test 08/31/18 13:05 08/31/18 15:55 08/31/18 16:55 08/31/18 18:15 White Blood Count 7.5 x10^3/uL (4.0-11.0) Red Blood Count 4.40 x10^6/uL (4.30-5.70) Hemoglobin 13.1 g/dL (13.0-17.5) Hematocrit 40.6 % (39.0-53.0) Mean Corpuscular Volume 92 fL (79-100) Mean Corpuscular Hemoglobin 30 pg (25-35) Mean Corpuscular Hemoglobin Concent 32 g/dL (31-37) Red Cell Distribution Width 13.8 % (11.5-14.5) Platelet Count 113 x10^3/uL (140-400) Neutrophils (%) (Auto) 76 % (31-73) Lymphocytes (%) (Auto) 12 % (24-48) Monocytes (%) (Auto) 11 % (0-9) Eosinophils (%) (Auto) 1 % (0-3) Basophils (%) (Auto) 0 % (0-3) Neutrophils # (Auto) 5.7 x10^3uL (1.8-7.7) Lymphocytes # (Auto) 0.9 x10^3/uL (1.0-4.8) Monocytes # (Auto) 0.8 x10^3/uL (0.0-1.1) Eosinophils # (Auto) 0.0 x10^3/uL (0.0-0.7) Basophils # (Auto) 0.0 x10^3/uL (0.0-0.2) Prothrombin Time 13.0 SEC (11.7-14.0) Prothromb Time International Ratio 1.0 (0.8-1.1) Sodium Level 137 mmol/L (136-145) Potassium Level 3.7 mmol/L (3.5-5.1) Chloride Level 98 mmol/L (98-107) Carbon Dioxide Level 31 mmol/L (21-32) Anion Gap 8 (6-14) Blood Urea Nitrogen 10 mg/dL (8-26) Creatinine 0.8 mg/dL (0.7-1.3) Estimated GFR (Cockcroft-Gault) 97.3 BUN/Creatinine Ratio 13 (6-20) Glucose Level 151 mg/dL (70-99) Lactic Acid Level 2.7 mmol/L (0.4-2.0) 1.3 mmol/L (0.4-2.0) Calcium Level 8.7 mg/dL (8.5-10.1) Total Bilirubin 0.4 mg/dL (0.2-1.0) Aspartate Amino Transf (AST/SGOT) 31 U/L (15-37) Alanine Aminotransferase (ALT/SGPT) 92 U/L (16-63) Alkaline Phosphatase 63 U/L (46-116) Troponin I Quantitative 0.058 ng/mL (0.000-0.055) AL-Rzk-W-Type Natriuretic Peptide 5921 pg/mL (0-124) Total Protein 7.4 g/dL (6.4-8.2) Albumin 3.7 g/dL (3.4-5.0) Albumin/Globulin Ratio 1.0 (1.0-1.7) Glucose (Fingerstick) 193 mg/dL (70-99) Activated Partial Thromboplast Time 32 SEC (24-38) Fibrinogen 560 mg/dL (200-440) Procalcitonin 0.15 ng/mL (0.00-0.10) Test 4/29/19 20:48 08/31/18 22:15 09/01/18 04:20 09/01/18 07:34 Glucose (Fingerstick) 316 mg/dL (70-99) 176 mg/dL (70-99) Urine Collection Type Unknown Urine Color Yellow Urine Clarity Clear Urine pH 6.0 Urine Specific [place] 1.025 Urine Protein Negative mg/dL (NEG-TRACE) Urine Glucose (UA) >=1000 mg/dL (NEG) Urine Ketones (Stick) Negative mg/dL (NEG) Urine Blood Negative (NEG) Urine Nitrite Negative (NEG) Urine Bilirubin Negative (NEG) Urine Urobilinogen Dipstick 1.0 mg/dL (0.2 mg/dL) Urine Leukocyte Esterase Negative (NEG) Urine RBC Occ /HPF (0-2) Urine WBC Occ /HPF (0-4) Urine Squamous Epithelial Cells Occ /LPF Urine Bacteria 0 /HPF (0-FEW) White Blood Count 5.8 x10^3/uL (4.0-11.0) Red Blood Count 3.95 x10^6/uL (4.30-5.70) Hemoglobin 11.8 g/dL (13.0-17.5) Hematocrit 36.2 % (39.0-53.0) Mean Corpuscular Volume 92 fL (79-100) Mean Corpuscular Hemoglobin 30 pg (25-35) Mean Corpuscular Hemoglobin Concent 33 g/dL (31-37) Red Cell Distribution Width 13.8 % (11.5-14.5) Platelet Count 114 x10^3/uL (140-400) Neutrophils (%) (Auto) 89 % (31-73) Lymphocytes (%) (Auto) 8 % (24-48) Monocytes (%) (Auto) 4 % (0-9) Eosinophils (%) (Auto) 0 % (0-3) Basophils (%) (Auto) 0 % (0-3) Neutrophils # (Auto) 5.1 x10^3uL (1.8-7.7) Lymphocytes # (Auto) 0.4 x10^3/uL (1.0-4.8) Monocytes # (Auto) 0.2 x10^3/uL (0.0-1.1) Eosinophils # (Auto) 0.0 x10^3/uL (0.0-0.7) Basophils # (Auto) 0.0 x10^3/uL (0.0-0.2) Sodium Level 139 mmol/L (136-145) Potassium Level 3.5 mmol/L (3.5-5.1) Chloride Level 101 mmol/L (98-107) Carbon Dioxide Level 30 mmol/L (21-32) Anion Gap 8 (6-14) Blood Urea Nitrogen 12 mg/dL (8-26) Creatinine 0.8 mg/dL (0.7-1.3) Estimated GFR (Cockcroft-Gault) 97.3 Glucose Level 192 mg/dL (70-99) Calcium Level 8.5 mg/dL (8.5-10.1) Troponin I Quantitative 0.044 ng/mL (0.000-0.055) Triglycerides Level 94 mg/dL (0-150) Cholesterol Level 155 mg/dL (0-200) LDL Cholesterol, Calculated 96 mg/dL (0-100) VLDL Cholesterol, Calculated 19 mg/dL (0-40) Non-HDL Cholesterol Calculated 115 mg/dL (0-129) HDL Cholesterol 40 mg/dL (40-60) Cholesterol/HDL Ratio 3.9 Test 09/01/18 11:24 Glucose (Fingerstick) 242 mg/dL (70-99) Laboratory Tests Test 08/31/18 15:55 08/31/18 16:55 08/31/18 18:15 08/31/18 20:48 Lactic Acid Level 1.3 mmol/L (0.4-2.0) Glucose (Fingerstick) 193 mg/dL (70-99) 316 mg/dL (70-99) Activated Partial Thromboplast Time 32 SEC (24-38) Fibrinogen 560 mg/dL (200-440) Procalcitonin 0.15 ng/mL (0.00-0.10) Test 08/31/18 22:15 09/01/18 04:20 09/01/18 07:34 09/01/18 11:24 Urine Collection Type Unknown Urine Color Yellow Urine Clarity Clear Urine pH 6.0 Urine Specific [place] 1.025 Urine Protein Negative mg/dL (NEG-TRACE) Urine Glucose (UA) >=1000 mg/dL (NEG) Urine Ketones (Stick) Negative mg/dL (NEG) Urine Blood Negative (NEG) Urine Nitrite Negative (NEG) Urine Bilirubin Negative (NEG) Urine Urobilinogen Dipstick 1.0 mg/dL (0.2 mg/dL) Urine Leukocyte Esterase Negative (NEG) Urine RBC Occ /HPF (0-2) Urine WBC Occ /HPF (0-4) Urine Squamous Epithelial Cells Occ /LPF Urine Bacteria 0 /HPF (0-FEW) White Blood Count 5.8 x10^3/uL (4.0-11.0) Red Blood Count 3.95 x10^6/uL (4.30-5.70) Hemoglobin 11.8 g/dL (13.0-17.5) Hematocrit 36.2 % (39.0-53.0) Mean Corpuscular Volume 92 fL (79-100) Mean Corpuscular Hemoglobin 30 pg (25-35) Mean Corpuscular Hemoglobin Concent 33 g/dL (31-37) Red Cell Distribution Width 13.8 % (11.5-14.5) Platelet Count 114 x10^3/uL (140-400) Neutrophils (%) (Auto) 89 % (31-73) Lymphocytes (%) (Auto) 8 % (24-48) Monocytes (%) (Auto) 4 % (0-9) Eosinophils (%) (Auto) 0 % (0-3) Basophils (%) (Auto) 0 % (0-3) Neutrophils # (Auto) 5.1 x10^3uL (1.8-7.7) Lymphocytes # (Auto) 0.4 x10^3/uL (1.0-4.8) Monocytes # (Auto) 0.2 x10^3/uL (0.0-1.1) Eosinophils # (Auto) 0.0 x10^3/uL (0.0-0.7) Basophils # (Auto) 0.0 x10^3/uL (0.0-0.2) Sodium Level 139 mmol/L (136-145) Potassium Level 3.5 mmol/L (3.5-5.1) Chloride Level 101 mmol/L (98-107) Carbon Dioxide Level 30 mmol/L (21-32) Anion Gap 8 (6-14) Blood Urea Nitrogen 12 mg/dL (8-26) Creatinine 0.8 mg/dL (0.7-1.3) Estimated GFR (Cockcroft-Gault) 97.3 Glucose Level 192 mg/dL (70-99) Calcium Level 8.5 mg/dL (8.5-10.1) Troponin I Quantitative 0.044 ng/mL (0.000-0.055) Triglycerides Level 94 mg/dL (0-150) Cholesterol Level 155 mg/dL (0-200) LDL Cholesterol, Calculated 96 mg/dL (0-100) VLDL Cholesterol, Calculated 19 mg/dL (0-40) Non-HDL Cholesterol Calculated 115 mg/dL (0-129) HDL Cholesterol 40 mg/dL (40-60) Cholesterol/HDL Ratio 3.9 Glucose (Fingerstick) 176 mg/dL (70-99) 242 mg/dL (70-99) Microbiology 08/31/18 Blood Culture - Preliminary, Resulted NO GROWTH AFTER 1 DAY Medications Current Medications Albuterol/ Ipratropium (Duoneb) 3 ml 1X ONCE NEB Last administered on 08/31/18at 12:36; Start 08/31/18 at 12:45; Stop 08/31/18 at 13:36; Status DC Methylprednisolone Sodium Succinate (SOLU-Medrol 125MG VIAL) 125 mg 1X ONCE IV Last administered on 08/31/18at 13:52; Start 08/31/18 at 12:45; Stop 08/31/18 at 13:36; Status DC Doxycycline Hyclate 100 mg/ Dextrose 100 ml @ 50 mls/hr 1X ONCE IV Last administered on 08/31/18at 14:14; Start 08/31/18 at 14:00; Stop 08/31/18 at 15:59; Status DC Aspirin (Children'S Aspirin) 324 mg 1X ONCE PO Last administered on 08/31/18at 14:03; Start 08/31/18 at 14:00; Stop 08/31/18 at 14:01; Status DC Albuterol/ Ipratropium (Duoneb) 3 ml RTQID NEB Last administered on 08/31/18at 16:32; Start 08/31/18 at 16:00; Stop 09/01/18 at 00:12; Status DC Iohexol (Omnipaque 350 Mg/ml) 90 ml 1X ONCE IV Last administered on 08/31/18at 14:15; Start 08/31/18 at 14:15; Stop 08/31/18 at 14:16; Status DC Lisinopril (Prinivil) 10 mg DAILY PO Last administered on 09/01/18at 09:25; Start 09/01/18 at 09:00 Metoprolol Succinate (Toprol Xl) 25 mg DAILY PO Last administered on 09/01/18at 09:25; Start 09/01/18 at 09:00 Dextrose (Dextrose 50%-Water Syringe) 12.5 gm PRN Q15MIN PRN IV SEE COMMENTS; Start 08/31/18 at 17:00 Hydralazine HCl (Apresoline Inj) 10 mg PRN Q4HRS PRN IVP ELEVATED BP, SEE COMMENTS; Start 08/31/18 at 17:45 Methylprednisolone Sodium Succinate (SOLU-Medrol 125MG VIAL) 80 mg Q8HRS IV Last administered on 09/01/18at 05:46; Start 08/31/18 at 22:00 Doxycycline Hyclate 100 mg/ Dextrose 100 ml @ 50 mls/hr Q12HR IV Last administered on 09/01/18at 09:27; Start 08/31/18 at 21:00 Enoxaparin Sodium (Lovenox 40mg Syringe) 40 mg Q24H SQ Last administered on 08/31/18at 21:09; Start 08/31/18 at 21:00 Sodium Chloride (Normal Saline Flush 3ml) 3 ml QSHIFT PRN IV AFTER MEDS AND BLOOD DRAWS; Start 08/31/18 at 18:00 Sodium Chloride 1,000 ml @ 100 mls/hr Q10H IV Last administered on 09/01/18at 05:45; Start 08/31/18 at 18:30; Stop 09/01/18 at 09:41; Status DC Ondansetron HCl (Zofran) 4 mg PRN Q4HRS PRN IV NAUSEA/VOMITING; Start 08/31/18 at 18:00 Acetaminophen (Tylenol) 650 mg PRN Q4HRS PRN PO TEMP OVER 100.4F OR MILD PAIN; Start 08/31/18 at 18:00 Al Hydroxide/Mg Hydroxide (Mylanta Plus Xs) 30 ml PRN DAILY PRN PO HEARTBURN / GAS; Start 08/31/18 at 18:00 Clonidine HCl (Catapres) 0.1 mg PRN Q6HRS PRN PO SBP>160 OR DBP>90 Last administered on 08/31/18at 21:10; Start 08/31/18 at 18:00 Sodium Monofluorophosphate (Fleet Adult) 133 ml PRN DAILY PRN [place] CONSTIPATION; Start 08/31/18 at 18:00 Docusate Sodium (Colace) 100 mg PRN BID PRN PO CONSTIPATION; Start 08/31/18 at 18:00 Albuterol/ Ipratropium (Duoneb) 3 ml Q4HRS NEB Last administered on 09/01/18at 11:59; Start 08/31/18 at 18:00 Guaifenesin (Robitussin) 200 mg PRN Q4HRS PRN PO COUGH; Start 08/31/18 at 18:00 Lorazepam (Ativan) 0.5 mg PRN Q4HRS PRN PO ANXIETY / AGITATION; Start 08/31/18 at 18:00 Sodium Chloride 1,000 ml @ 1,920 mls/hr Q32M IV ; Start 08/31/18 at 18:04; Stop 08/31/18 at 19:04; Status DC Sodium Chloride 500 ml @ 1,000 mls/hr PRN Q30MIN PRN IV SEE COMMENTS; Start 08/31/18 at 18:15 Ceftriaxone Sodium (Rocephin) 1 gm Q24H IVP Last administered on 08/31/18at 18:39; Start 08/31/18 at 19:00 Insulin Human Lispro (HumaLOG) 0-5 UNITS TIDWMEALS SQ Last administered on 09/01/18at 13:33; Start 08/31/18 at 19:00 Furosemide (Lasix) 40 mg 1X ONCE PO Last administered on 09/01/18at 10:08; Start 09/01/18 at 10:00; Stop 09/01/18 at 10:01; Status DC Aspirin (Ecotrin) 81 mg DAILYWBKFT PO Last administered on 09/01/18at 10:08; Start 09/01/18 at 09:45 Active Scripts Active Reported Metformin Hcl Er (Metformin Hcl) 500 Mg Tab.er.24h 500 Mg PO DAILYWBKFT Metoprolol Succinate ( Xl ) (Metoprolol Succinate) 25 Mg Tab.er.24h 1 Tab PO DAILY Lisinopril 10 Mg Tablet 1 Tab PO DAILY Vitals/I & O Vital Sign - Last 24 Hours 08/31/18 08/31/18 08/31/18 08/31/18 14:30 15:00 15:30 15:37 Temp 98.2 98.2 Pulse 110 116 114 Resp 32 20 B/P (MAP) 151/94 (113) 180/116 (137) 175/101 (125) Pulse Ox 97 91 O2 Delivery Nasal Cannula Nasal Cannula Nasal Cannula Nasal Cannula O2 Flow Rate 2.0 2.0 2.0 2.0 08/31/18 08/31/18 08/31/18 08/31/18 15:54 16:36 19:33 19:40 Temp 98.0 98.0 Pulse 112 114 Resp 22 B/P (MAP) 172/98 (122) 161/78 (105) Pulse Ox 95 94 93 O2 Delivery Nasal Cannula Nasal Cannula Nasal Cannula Nasal Cannula O2 Flow Rate 2.0 2.0 2.0 2.0 08/31/18 08/31/18 08/31/18 08/31/18 20:08 21:10 22:50 23:30 Temp 97.9 97.9 Pulse 114 103 Resp 22 B/P (MAP) 161/78 133/64 (87) Pulse Ox 93 O2 Delivery Nasal Cannula Nasal Cannula Nasal Cannula O2 Flow Rate 2.0 2.0 2.0 09/01/18 09/01/18 09/01/18 09/01/18 03:00 03:05 03:15 07:00 Temp 97.7 97.9 97.7 97.9 Pulse 100 107 Resp 22 18 B/P (MAP) 125/63 (83) 163/91 (115) Pulse Ox 87 93 96 O2 Delivery Room Air Nasal Cannula Room Air O2 Flow Rate 2.0 2.0 09/01/18 09/01/18 09/01/18 09/01/18 07:00 08:10 09:25 09:25 Pulse 108 108 B/P (MAP) 142/70 142/70 Pulse Ox 97 O2 Delivery Nasal Cannula Nasal Cannula O2 Flow Rate 2.0 2.0 09/01/18 09/01/18 11:00 11:59 Temp 98.3 98.3 Pulse 105 Resp 18 B/P (MAP) 147/75 (99) Pulse Ox 97 100 O2 Delivery Room Air Nasal Cannula O2 Flow Rate 2.0 Intake and Output 08/31/18 08/31/18 09/01/18 15:00 23:00 07:00 Intake Total 100 ml 500 ml Output Total 800 ml 625 ml Balance -700 ml -125 ml TERESE CORADO MD Sep 01, 2018 13:42
[2018-09-01 15:00] VITALS: BP 136/67
--- NOTE | 2018-09-01 17:32 | CARD ---
MR#: [id number] Date of Study: 09/01/2018 Ordering Physician: TERESE CORADO, Referring Physician: TERESE CORADO, Tech: Brittany Santo APPROVED REPORT EXAM: Two-dimensional and M-mode echocardiogram with Doppler and color Doppler. Other Information Quality : AverageHR: 114bpm INDICATION Congestive Heart Failure 2D DIMENSIONS Left Atrium(2D)3.5 (1.6-4.0cm)IVSd1.3 (0.7-1.1cm) Aortic Root(2D)3.3 (2.0-3.7cm)LVDd5.7 (3.9-5.9cm) LVOT Diameter2.1 (1.8-2.4cm)PWd1.3 (0.7-1.1cm) LVDs3.9 (2.5-4.0cm)FS (%) 31.6 % SV94.1 ml Aortic Valve AoV Peak Chepe.133.2cm/sAoV VTI21.3cm AO Peak GR.7.1mmHgLVOT Peak Chepe.103.4cm/s LVOT VTI 18.05cmAO Mean GR.4mmHg RADHA (VMAX)2.74nf1OYV (VTI)2.95cm2 Mitral Valve MV E Yvradgux93.7cm/sMV DECEL [id number] MV A Ckctxshx84.4cm/sMV [id number] E/A Ratio1.1MVA (PHT)4.69cm2 TDI E/Lateral E'8.8 Pulmonary Valve PV Peak Rziqmoce72.0cm/sPV Peak Grad.4mmHg Tricuspid Valve TR P. Dumhstqg299ep/sRAP [id number] TR Peak Gr.98trTlEUKP27xtMe Pulmonary Vein S1 Svmpjiha88.0cm/sD2 Anenxdmt63.0cm/s PVa [id number] LEFT VENTRICLE The left ventricle is normal size. There is mild to moderate left ventricular hypertrophy most signif icant near the apex. The left ventricular systolic function is normal and the ejection fraction is wi thin normal range. The Ejection Fraction is 50-55%. There is normal LV segmental wall motion. Transmi tral Doppler flow pattern is Grade II-pseudonormal filling dynamics. RIGHT VENTRICLE The right ventricle is normal size. There is normal right ventricular wall thickness. The right ventr icular systolic function is normal. ATRIA The left atrium is borderline dilated. The right atrium is borderline dilated. The interatrial septum is intact with no evidence for an atrial septal defect or patent foramen ovale as noted on 2-D or Do ppler imaging. AORTIC VALVE The aortic valve is not well visualized. Doppler and Color Flow revealed no significant aortic regurg itation. There is no significant aortic valvular stenosis. MITRAL VALVE The mitral valve is normal in structure and function. There is no evidence of mitral valve prolapse. There is no mitral valve stenosis. Doppler and Color-flow revealed trace mitral regurgitation. TRICUSPID VALVE The tricuspid valve is normal in structure and function. Doppler and Color Flow revealed trace tricus pid regurgitation with an estimated PAP of 40 mmHg. There is no tricuspid valve stenosis. PULMONIC VALVE The pulmonic valve is not well visualized. Doppler and Color Flow revealed no pulmonic valvular regur gitation. GREAT VESSELS The aortic root is normal in size. The IVC was not well visualized. PERICARDIAL EFFUSION There is no evidence of significant pericardial effusion. Critical Notification Critical Value: No <Conclusion> The left ventricle is normal size. The left ventricular systolic function is normal and the ejection fraction is within normal range. The Ejection Fraction is 50-55%. There is mild to moderate left ventricular hypertrophy most significant near the apex. There is no significant aortic valvular stenosis. Doppler and Color Flow revealed no significant aortic regurgitation. Doppler and Color-flow revealed trace mitral regurgitation. Doppler and Color Flow revealed trace tricuspid regurgitation with an estimated PAP of 40 mmHg. Signed by : Jaguar Rodriguez MD Electronically Approved : 09/01/2018 17:32:04
[2018-09-01] MEDS: cefTRIAXone IV Push 1 GM VIAL. IVP SCH (18:36)
[2018-09-01 19:20] VITALS: BP 152/78
[2018-09-01] MEDS: ENOXAPARIN 40 MG/0.4 ML SYRINGE. SQ SCH (21:02)
[2018-09-01 23:40] VITALS: BP 148/72
[2018-09-02] MEDS: IPRATRPIUM/ALBUTEROL 0.5/2.5MG 3 ML NEBU. NEB SCH ×7 (03:32→23:47)
[2018-09-02 03:50] VITALS: BP 129/68
[2018-09-02 04:43] LABS: BASO % 0 % (0-3); EOS % 0 % (0-3); HEMATOCRIT 37.5 % (39.0-53.0); HEMOGLOBIN 12.1 g/dL (13.0-17.5); LYMPH # 0.5 x10^3/uL (1.0-4.8); LYMPH % 4 % (24-48); MEAN CORPUSCULAR HEMOGLOBIN 30 pg (25-35); MEAN CORPUSCULAR HGB CONC 32 g/dL (31-37); MEAN CORPUSCULAR VOLUME 92 fL (79-100); MONO # 0.4 x10^3/uL (0.0-1.1); MONO % 4 % (0-9); NEUT # 10.5 x10^3uL (1.8-7.7); NEUT % 92 % (31-73); PLATELET COUNT 130 x10^3/uL (140-400); RED BLOOD COUNT 4.08 x10^6/uL (4.30-5.70); RED CELL DISTRIBUTION WIDTH 13.8 % (11.5-14.5); WHITE BLOOD COUNT 11.4 x10^3/uL (4.0-11.0)
[2018-09-02 05:43] LABS: ALBUMIN 3.1 g/dL (3.4-5.0); ALBUMIN/GLOBULIN RATIO 0.9 (1.0-1.7); CALCIUM 8.7 mg/dL (8.5-10.1); CREATININE 0.8 mg/dL (0.7-1.3); GFR 97.3; POTASSIUM 3.9 mmol/L (3.5-5.1); TOTAL BILIRUBIN 0.3 mg/dL (0.2-1.0); TOTAL PROTEIN 6.5 g/dL (6.4-8.2)
[2018-09-02] MEDS: methylPREDNISolone SOD SUCC PF 125 MG/2 ML VIAL. IV SCH ×3 (05:45→21:21)
[2018-09-02 07:00] VITALS: BP 143/83
[2018-09-02 07:51] LABS: % BANDS 4 % (0-9); % LYMPHS 4 % (24-48); % MONOS 1 % (0-10); % SEGS 91 % (35-66); PLT ESTIMATE ADEQUATE (ADEQUATE)
[2018-09-02] MEDS: ASPIRIN ENTERIC COATED 81 MG TABLET.DR. PO SCH (09:39)
[2018-09-02] MEDS: METOPROLOL SUCC 24HR ER 25 MG TAB.ER.24H. PO SCH (09:40)
[2018-09-02] MEDS: LISINOPRIL 10 MG TABLET PO SCH (09:40)
[2018-09-02] MEDS: DOXYCYCLINE HYCLATE 100 MG in IV DEXTROSE 5% 100ML 100 ML IV SCH ×2 (09:41→21:21)
[2018-09-02] MEDS: INSULIN LISPRO 300 UNITS/3 ML INSULN.PEN. SQ SCH ×3 (09:46→17:58)
--- NOTE | 2018-09-02 10:10 | PDOC ---
DEBBY HARMAN RN SUPPORT SERVICES 09/02/18 1010: CARDIO Progress Notes Date and Time Date of Service 09/02/18 Time of Evaluation 1000 Subjective Subjective: No Chest Pain, Other (breathing improved) Vitals Vitals Vital Signs Date Time Temp Pulse Resp B/P (MAP) Pulse Ox O2 Delivery O2 Flow Rate FiO2 09/02/18 09:40 121 143/83 09/02/18 08:26 98 Nasal Cannula 2.0 09/02/18 07:00 97.6 20 97.6 Weight Weight [ ] Input and Output Intake and Output Intake and Output 09/02/18 06:59 Intake Total 400 ml Output Total 1650 ml Balance -1250 ml Intake Oral 400 ml Output Urine Total 1650 ml # Voids 1 Laboratory Labs Laboratory Tests Test 09/01/18 11:24 09/01/18 16:50 09/01/18 21:01 09/02/18 03:30 Glucose (Fingerstick) 242 mg/dL (70-99) 183 mg/dL (70-99) 238 mg/dL (70-99) White Blood Count 11.4 x10^3/uL (4.0-11.0) Red Blood Count 4.08 x10^6/uL (4.30-5.70) Hemoglobin 12.1 g/dL (13.0-17.5) Hematocrit 37.5 % (39.0-53.0) Mean Corpuscular Volume 92 fL (79-100) Mean Corpuscular Hemoglobin 30 pg (25-35) Mean Corpuscular Hemoglobin Concent 32 g/dL (31-37) Red Cell Distribution Width 13.8 % (11.5-14.5) Platelet Count 130 x10^3/uL (140-400) Neutrophils (%) (Auto) 92 % (31-73) Lymphocytes (%) (Auto) 4 % (24-48) Monocytes (%) (Auto) 4 % (0-9) Eosinophils (%) (Auto) 0 % (0-3) Basophils (%) (Auto) 0 % (0-3) Neutrophils # (Auto) 10.5 x10^3uL (1.8-7.7) Lymphocytes # (Auto) 0.5 x10^3/uL (1.0-4.8) Monocytes # (Auto) 0.4 x10^3/uL (0.0-1.1) Eosinophils # (Auto) 0.0 x10^3/uL (0.0-0.7) Basophils # (Auto) 0.0 x10^3/uL (0.0-0.2) Segmented Neutrophils % 91 % (35-66) Band Neutrophils % 4 % (0-9) Lymphocytes % 4 % (24-48) Monocytes % 1 % (0-10) Platelet Estimate Adequate (ADEQUATE) Large Platelets Present Test 09/02/18 03:35 09/02/18 08:00 Sodium Level 141 mmol/L (136-145) Potassium Level 3.9 mmol/L (3.5-5.1) Chloride Level 102 mmol/L (98-107) Carbon Dioxide Level 32 mmol/L (21-32) Anion Gap 7 (6-14) Blood Urea Nitrogen 18 mg/dL (8-26) Creatinine 0.8 mg/dL (0.7-1.3) Estimated GFR (Cockcroft-Gault) 97.3 BUN/Creatinine Ratio 23 (6-20) Glucose Level 203 mg/dL (70-99) Calcium Level 8.7 mg/dL (8.5-10.1) Total Bilirubin 0.3 mg/dL (0.2-1.0) Aspartate Amino Transf (AST/SGOT) 50 U/L (15-37) Alanine Aminotransferase (ALT/SGPT) 121 U/L (16-63) Alkaline Phosphatase 60 U/L (46-116) Total Protein 6.5 g/dL (6.4-8.2) Albumin 3.1 g/dL (3.4-5.0) Albumin/Globulin Ratio 0.9 (1.0-1.7) Glucose (Fingerstick) 175 mg/dL (70-99) Microbiology Micro Microbiology 08/31/18 Blood Culture - Preliminary, Resulted NO GROWTH AFTER 1 DAY Physical Exam HEENT: Neck Supple W Full Motion Chest: Symmetric LUNGS: Other (crackles bilateral bases) Heart: RRR Abdomen: Soft N/T Extremities: No Calf Tenderness, Other (trace bilateral LE edema ) Neurology: alert, oriented, follow commands Assessment Assessment 1. AECOPD with probable pneumonia 2. Mild acute diastolic CHF; Echo showed LVEF 50-55% with LVH. Appears compensated 3. PSVT: it is paroxysmal atrial tach on tele rather than PAFIB. Improved with resumption of BB. Remains ST 4. Elevated troponin: mild at 0.058, demand mediated, type 2 as above culprits. 5. Hypertension; mildly elevated 6. Hyperlipidemia; lipids on goal 7. Diabetes, II; as per PCP Recommendations Continue ASA, BB, ACEi Antibiotics as per PCP/pulmonary Plan for outpt stress test. Follow up in office. Resume home BP meds and statin. Start on ECASA 81 mg MCOT as an outpt. JACQUELINE MAGALLON MD 09/02/18 1651: CARDIO Progress Notes Assessment Assessment Patient seen and examinedAssessment 1. AECOPD. Clinically improving. Continue present treatment. 2. Mild acute diastolic CHF; Echo showed LVEF 50-55% with LVH. Compensated 3. PSVT: it is paroxysmal atrial tach on tele rather than PAFIB. Improved with resumption of BB. Remains ST. Will place outpt monitor. 4. Elevated troponin: mild at 0.058, demand mediated. Continue present treatment. 5. Hypertension; Continue present treatment. 6. Hyperlipidemia; lipids on goal 7. Diabetes, II; as per PCP DEBBY HARMAN APRN September 02, 2018 10:10 JACQUELINE MAGALLON MD September 02, 2018 16:51
[2018-09-02 11:00] VITALS: BP 147/72
--- NOTE | 2018-09-02 12:26 | PDOC ---
PROGRESS NOTES History of Present Illness History of Present Illness VTE Prophylaxis Ordered VTE Prophylaxis Devices: Yes VTE Pharmacological Prophylaxi: Yes Assessment/Plan Assessment/Plan IMPRESSION: 1. acute hypoxic resp failure No evidence of pulmonary embolism. 2. Coronary artery calcifications. 3. reflux of contrast into the hepatic veins. Correlate for elevated right heart pressures with mild congestive changes. 4. lung base airspace opacities likely atelectasis or infiltrates with trace bilateral pleural effusions.C/W PNEUMONIA 5. hypertensive urgency 6. ACUTE COPD EXAC 7. MILD elevation troponin i 8. PSVT: it is paroxysmal atrial tach on tele rather than PAFIB. plan admit cvc icu bed serial troponin i pulm consult cardiology consult echo dvt prophylaxis iv steroids emperic iv doxy iv hydralazine 10mg q 4 hrs prn bp support 42 min pt exam, chart review, > 50% of time spent with exam, chart review, pt care coordination Vitals Vitals Vital Signs Date Time Temp Pulse Resp B/P (MAP) Pulse Ox O2 Delivery O2 Flow Rate FiO2 09/02/18 12:02 Nasal Cannula 2.0 09/02/18 11:00 98.0 106 24 147/72 (97) 96 98.0 Physical Exam General: Alert, Oriented X3, Cooperative, No acute distress, mild distress Heart: Regular rate (SR), Normal S1, Normal S2, Other (2/6 systolic murmur to LLS border) Lungs: Crackles Abdomen: Normal bowel sounds, Soft Extremities: No cyanosis, Other (1+ bilateral LE pitting edema) Skin: No breakdown, No significant lesion Labs LABS Laboratory Tests Test 09/01/18 16:50 09/01/18 21:01 09/02/18 03:30 09/02/18 03:35 Glucose (Fingerstick) 183 mg/dL (70-99) 238 mg/dL (70-99) White Blood Count 11.4 x10^3/uL (4.0-11.0) Red Blood Count 4.08 x10^6/uL (4.30-5.70) Hemoglobin 12.1 g/dL (13.0-17.5) Hematocrit 37.5 % (39.0-53.0) Mean Corpuscular Volume 92 fL (79-100) Mean Corpuscular Hemoglobin 30 pg (25-35) Mean Corpuscular Hemoglobin Concent 32 g/dL (31-37) Red Cell Distribution Width 13.8 % (11.5-14.5) Platelet Count 130 x10^3/uL (140-400) Neutrophils (%) (Auto) 92 % (31-73) Lymphocytes (%) (Auto) 4 % (24-48) Monocytes (%) (Auto) 4 % (0-9) Eosinophils (%) (Auto) 0 % (0-3) Basophils (%) (Auto) 0 % (0-3) Neutrophils # (Auto) 10.5 x10^3uL (1.8-7.7) Lymphocytes # (Auto) 0.5 x10^3/uL (1.0-4.8) Monocytes # (Auto) 0.4 x10^3/uL (0.0-1.1) Eosinophils # (Auto) 0.0 x10^3/uL (0.0-0.7) Basophils # (Auto) 0.0 x10^3/uL (0.0-0.2) Segmented Neutrophils % 91 % (35-66) Band Neutrophils % 4 % (0-9) Lymphocytes % 4 % (24-48) Monocytes % 1 % (0-10) Platelet Estimate Adequate (ADEQUATE) Large Platelets Present Sodium Level 141 mmol/L (136-145) Potassium Level 3.9 mmol/L (3.5-5.1) Chloride Level 102 mmol/L (98-107) Carbon Dioxide Level 32 mmol/L (21-32) Anion Gap 7 (6-14) Blood Urea Nitrogen 18 mg/dL (8-26) Creatinine 0.8 mg/dL (0.7-1.3) Estimated GFR (Cockcroft-Gault) 97.3 BUN/Creatinine Ratio 23 (6-20) Glucose Level 203 mg/dL (70-99) Calcium Level 8.7 mg/dL (8.5-10.1) Total Bilirubin 0.3 mg/dL (0.2-1.0) Aspartate Amino Transf (AST/SGOT) 50 U/L (15-37) Alanine Aminotransferase (ALT/SGPT) 121 U/L (16-63) Alkaline Phosphatase 60 U/L (46-116) Total Protein 6.5 g/dL (6.4-8.2) Albumin 3.1 g/dL (3.4-5.0) Albumin/Globulin Ratio 0.9 (1.0-1.7) Test 09/02/18 08:00 09/02/18 11:34 Glucose (Fingerstick) 175 mg/dL (70-99) 274 mg/dL (70-99) Assessment and Plan Assessmemt and Plan Problems Medical Problems: (1) Hypoxia Status: Acute Comment Review of Relevant I have reviewed the following items robert (where applicable) has been applied. Labs Laboratory Tests Test 08/31/18 13:05 08/31/18 15:55 08/31/18 16:55 08/31/18 18:15 White Blood Count 7.5 x10^3/uL (4.0-11.0) Red Blood Count 4.40 x10^6/uL (4.30-5.70) Hemoglobin 13.1 g/dL (13.0-17.5) Hematocrit 40.6 % (39.0-53.0) Mean Corpuscular Volume 92 fL (79-100) Mean Corpuscular Hemoglobin 30 pg (25-35) Mean Corpuscular Hemoglobin Concent 32 g/dL (31-37) Red Cell Distribution Width 13.8 % (11.5-14.5) Platelet Count 113 x10^3/uL (140-400) Neutrophils (%) (Auto) 76 % (31-73) Lymphocytes (%) (Auto) 12 % (24-48) Monocytes (%) (Auto) 11 % (0-9) Eosinophils (%) (Auto) 1 % (0-3) Basophils (%) (Auto) 0 % (0-3) Neutrophils # (Auto) 5.7 x10^3uL (1.8-7.7) Lymphocytes # (Auto) 0.9 x10^3/uL (1.0-4.8) Monocytes # (Auto) 0.8 x10^3/uL (0.0-1.1) Eosinophils # (Auto) 0.0 x10^3/uL (0.0-0.7) Basophils # (Auto) 0.0 x10^3/uL (0.0-0.2) Prothrombin Time 13.0 SEC (11.7-14.0) Prothromb Time International Ratio 1.0 (0.8-1.1) Sodium Level 137 mmol/L (136-145) Potassium Level 3.7 mmol/L (3.5-5.1) Chloride Level 98 mmol/L (98-107) Carbon Dioxide Level 31 mmol/L (21-32) Anion Gap 8 (6-14) Blood Urea Nitrogen 10 mg/dL (8-26) Creatinine 0.8 mg/dL (0.7-1.3) Estimated GFR (Cockcroft-Gault) 97.3 BUN/Creatinine Ratio 13 (6-20) Glucose Level 151 mg/dL (70-99) Lactic Acid Level 2.7 mmol/L (0.4-2.0) 1.3 mmol/L (0.4-2.0) Calcium Level 8.7 mg/dL (8.5-10.1) Total Bilirubin 0.4 mg/dL (0.2-1.0) Aspartate Amino Transf (AST/SGOT) 31 U/L (15-37) Alanine Aminotransferase (ALT/SGPT) 92 U/L (16-63) Alkaline Phosphatase 63 U/L (46-116) Troponin I Quantitative 0.058 ng/mL (0.000-0.055) XW-Igg-B-Type Natriuretic Peptide 5921 pg/mL (0-124) Total Protein 7.4 g/dL (6.4-8.2) Albumin 3.7 g/dL (3.4-5.0) Albumin/Globulin Ratio 1.0 (1.0-1.7) Glucose (Fingerstick) 193 mg/dL (70-99) Activated Partial Thromboplast Time 32 SEC (24-38) Fibrinogen 560 mg/dL (200-440) Procalcitonin 0.15 ng/mL (0.00-0.10) Test 08/31/18 20:48 08/31/18 22:15 09/01/18 04:20 09/01/18 07:34 Glucose (Fingerstick) 316 mg/dL (70-99) 176 mg/dL (70-99) Urine Collection Type Unknown Urine Color Yellow Urine Clarity Clear Urine pH 6.0 Urine Specific [place] 1.025 Urine Protein Negative mg/dL (NEG-TRACE) Urine Glucose (UA) >=1000 mg/dL (NEG) Urine Ketones (Stick) Negative mg/dL (NEG) Urine Blood Negative (NEG) Urine Nitrite Negative (NEG) Urine Bilirubin Negative (NEG) Urine Urobilinogen Dipstick 1.0 mg/dL (0.2 mg/dL) Urine Leukocyte Esterase Negative (NEG) Urine RBC Occ /HPF (0-2) Urine WBC Occ /HPF (0-4) Urine Squamous Epithelial Cells Occ /LPF Urine Bacteria 0 /HPF (0-FEW) White Blood Count 5.8 x10^3/uL (4.0-11.0) Red Blood Count 3.95 x10^6/uL (4.30-5.70) Hemoglobin 11.8 g/dL (13.0-17.5) Hematocrit 36.2 % (39.0-53.0) Mean Corpuscular Volume 92 fL (79-100) Mean Corpuscular Hemoglobin 30 pg (25-35) Mean Corpuscular Hemoglobin Concent 33 g/dL (31-37) Red Cell Distribution Width 13.8 % (11.5-14.5) Platelet Count 114 x10^3/uL (140-400) Neutrophils (%) (Auto) 89 % (31-73) Lymphocytes (%) (Auto) 8 % (24-48) Monocytes (%) (Auto) 4 % (0-9) Eosinophils (%) (Auto) 0 % (0-3) Basophils (%) (Auto) 0 % (0-3) Neutrophils # (Auto) 5.1 x10^3uL (1.8-7.7) Lymphocytes # (Auto) 0.4 x10^3/uL (1.0-4.8) Monocytes # (Auto) 0.2 x10^3/uL (0.0-1.1) Eosinophils # (Auto) 0.0 x10^3/uL (0.0-0.7) Basophils # (Auto) 0.0 x10^3/uL (0.0-0.2) Sodium Level 139 mmol/L (136-145) Potassium Level 3.5 mmol/L (3.5-5.1) Chloride Level 101 mmol/L (98-107) Carbon Dioxide Level 30 mmol/L (21-32) Anion Gap 8 (6-14) Blood Urea Nitrogen 12 mg/dL (8-26) Creatinine 0.8 mg/dL (0.7-1.3) Estimated GFR (Cockcroft-Gault) 97.3 Glucose Level 192 mg/dL (70-99) Calcium Level 8.5 mg/dL (8.5-10.1) Troponin I Quantitative 0.044 ng/mL (0.000-0.055) Triglycerides Level 94 mg/dL (0-150) Cholesterol Level 155 mg/dL (0-200) LDL Cholesterol, Calculated 96 mg/dL (0-100) VLDL Cholesterol, Calculated 19 mg/dL (0-40) Non-HDL Cholesterol Calculated 115 mg/dL (0-129) HDL Cholesterol 40 mg/dL (40-60) Cholesterol/HDL Ratio 3.9 Test 09/01/18 11:24 09/01/18 16:50 09/01/18 21:01 09/02/18 03:30 Glucose (Fingerstick) 242 mg/dL (70-99) 183 mg/dL (70-99) 238 mg/dL (70-99) White Blood Count 11.4 x10^3/uL (4.0-11.0) Red Blood Count 4.08 x10^6/uL (4.30-5.70) Hemoglobin 12.1 g/dL (13.0-17.5) Hematocrit 37.5 % (39.0-53.0) Mean Corpuscular Volume 92 fL (79-100) Mean Corpuscular Hemoglobin 30 pg (25-35) Mean Corpuscular Hemoglobin Concent 32 g/dL (31-37) Red Cell Distribution Width 13.8 % (11.5-14.5) Platelet Count 130 x10^3/uL (140-400) Neutrophils (%) (Auto) 92 % (31-73) Lymphocytes (%) (Auto) 4 % (24-48) Monocytes (%) (Auto) 4 % (0-9) Eosinophils (%) (Auto) 0 % (0-3) Basophils (%) (Auto) 0 % (0-3) Neutrophils # (Auto) 10.5 x10^3uL (1.8-7.7) Lymphocytes # (Auto) 0.5 x10^3/uL (1.0-4.8) Monocytes # (Auto) 0.4 x10^3/uL (0.0-1.1) Eosinophils # (Auto) 0.0 x10^3/uL (0.0-0.7) Basophils # (Auto) 0.0 x10^3/uL (0.0-0.2) Segmented Neutrophils % 91 % (35-66) Band Neutrophils % 4 % (0-9) Lymphocytes % 4 % (24-48) Monocytes % 1 % (0-10) Platelet Estimate Adequate (ADEQUATE) Large Platelets Present Test 09/02/18 03:35 09/02/18 08:00 09/02/18 11:34 Sodium Level 141 mmol/L (136-145) Potassium Level 3.9 mmol/L (3.5-5.1) Chloride Level 102 mmol/L (98-107) Carbon Dioxide Level 32 mmol/L (21-32) Anion Gap 7 (6-14) Blood Urea Nitrogen 18 mg/dL (8-26) Creatinine 0.8 mg/dL (0.7-1.3) Estimated GFR (Cockcroft-Gault) 97.3 BUN/Creatinine Ratio 23 (6-20) Glucose Level 203 mg/dL (70-99) Calcium Level 8.7 mg/dL (8.5-10.1) Total Bilirubin 0.3 mg/dL (0.2-1.0) Aspartate Amino Transf (AST/SGOT) 50 U/L (15-37) Alanine Aminotransferase (ALT/SGPT) 121 U/L (16-63) Alkaline Phosphatase 60 U/L (46-116) Total Protein 6.5 g/dL (6.4-8.2) Albumin 3.1 g/dL (3.4-5.0) Albumin/Globulin Ratio 0.9 (1.0-1.7) Glucose (Fingerstick) 175 mg/dL (70-99) 274 mg/dL (70-99) Laboratory Tests Test 09/01/18 16:50 09/01/18 21:01 09/02/18 03:30 09/02/18 03:35 Glucose (Fingerstick) 183 mg/dL (70-99) 238 mg/dL (70-99) White Blood Count 11.4 x10^3/uL (4.0-11.0) Red Blood Count 4.08 x10^6/uL (4.30-5.70) Hemoglobin 12.1 g/dL (13.0-17.5) Hematocrit 37.5 % (39.0-53.0) Mean Corpuscular Volume 92 fL (79-100) Mean Corpuscular Hemoglobin 30 pg (25-35) Mean Corpuscular Hemoglobin Concent 32 g/dL (31-37) Red Cell Distribution Width 13.8 % (11.5-14.5) Platelet Count 130 x10^3/uL (140-400) Neutrophils (%) (Auto) 92 % (31-73) Lymphocytes (%) (Auto) 4 % (24-48) Monocytes (%) (Auto) 4 % (0-9) Eosinophils (%) (Auto) 0 % (0-3) Basophils (%) (Auto) 0 % (0-3) Neutrophils # (Auto) 10.5 x10^3uL (1.8-7.7) Lymphocytes # (Auto) 0.5 x10^3/uL (1.0-4.8) Monocytes # (Auto) 0.4 x10^3/uL (0.0-1.1) Eosinophils # (Auto) 0.0 x10^3/uL (0.0-0.7) Basophils # (Auto) 0.0 x10^3/uL (0.0-0.2) Segmented Neutrophils % 91 % (35-66) Band Neutrophils % 4 % (0-9) Lymphocytes % 4 % (24-48) Monocytes % 1 % (0-10) Platelet Estimate Adequate (ADEQUATE) Large Platelets Present Sodium Level 141 mmol/L (136-145) Potassium Level 3.9 mmol/L (3.5-5.1) Chloride Level 102 mmol/L (98-107) Carbon Dioxide Level 32 mmol/L (21-32) Anion Gap 7 (6-14) Blood Urea Nitrogen 18 mg/dL (8-26) Creatinine 0.8 mg/dL (0.7-1.3) Estimated GFR (Cockcroft-Gault) 97.3 BUN/Creatinine Ratio 23 (6-20) Glucose Level 203 mg/dL (70-99) Calcium Level 8.7 mg/dL (8.5-10.1) Total Bilirubin 0.3 mg/dL (0.2-1.0) Aspartate Amino Transf (AST/SGOT) 50 U/L (15-37) Alanine Aminotransferase (ALT/SGPT) 121 U/L (16-63) Alkaline Phosphatase 60 U/L (46-116) Total Protein 6.5 g/dL (6.4-8.2) Albumin 3.1 g/dL (3.4-5.0) Albumin/Globulin Ratio 0.9 (1.0-1.7) Test 09/02/18 08:00 09/02/18 11:34 Glucose (Fingerstick) 175 mg/dL (70-99) 274 mg/dL (70-99) Microbiology 08/31/18 Blood Culture - Preliminary, Resulted NO GROWTH AFTER 1 DAY Medications Current Medications Albuterol/ Ipratropium (Duoneb) 3 ml 1X ONCE NEB Last administered on 08/31/18at 12:36; Start 08/31/18 at 12:45; Stop 08/31/18 at 13:36; Status DC Methylprednisolone Sodium Succinate (SOLU-Medrol 125MG VIAL) 125 mg 1X ONCE IV Last administered on 08/31/18at 13:52; Start 08/31/18 at 12:45; Stop 08/31/18 at 13:36; Status DC Doxycycline Hyclate 100 mg/ Dextrose 100 ml @ 50 mls/hr 1X ONCE IV Last administered on 08/31/18at 14:14; Start 08/31/18 at 14:00; Stop 08/31/18 at 15:59; Status DC Aspirin (Children'S Aspirin) 324 mg 1X ONCE PO Last administered on 08/31/18at 14:03; Start 08/31/18 at 14:00; Stop 08/31/18 at 14:01; Status DC Albuterol/ Ipratropium (Duoneb) 3 ml RTQID NEB Last administered on 08/31/18at 16:32; Start 08/31/18 at 16:00; Stop 09/01/18 at 00:12; Status DC Iohexol (Omnipaque 350 Mg/ml) 90 ml 1X ONCE IV Last administered on 08/31/18at 14:15; Start 08/31/18 at 14:15; Stop 08/31/18 at 14:16; Status DC Lisinopril (Prinivil) 10 mg DAILY PO Last administered on 09/02/18at 09:40; Start 09/01/18 at 09:00 Metoprolol Succinate (Toprol Xl) 25 mg DAILY PO Last administered on 09/02/18at 09:40; Start 09/01/18 at 09:00 Dextrose (Dextrose 50%-Water Syringe) 12.5 gm PRN Q15MIN PRN IV SEE COMMENTS; Start 08/31/18 at 17:00 Hydralazine HCl (Apresoline Inj) 10 mg PRN Q4HRS PRN IVP ELEVATED BP, SEE COMMENTS; Start 08/31/18 at 17:45 Methylprednisolone Sodium Succinate (SOLU-Medrol 125MG VIAL) 80 mg Q8HRS IV Last administered on 09/02/18at 05:45; Start 08/31/18 at 22:00 Doxycycline Hyclate 100 mg/ Dextrose 100 ml @ 50 mls/hr Q12HR IV Last administered on 09/02/18at 09:41; Start 08/31/18 at 21:00 Enoxaparin Sodium (Lovenox 40mg Syringe) 40 mg Q24H SQ Last administered on 09/01/18at 21:02; Start 08/31/18 at 21:00 Sodium Chloride (Normal Saline Flush 3ml) 3 ml QSHIFT PRN IV AFTER MEDS AND BLOOD DRAWS; Start 08/31/18 at 18:00 Sodium Chloride 1,000 ml @ 100 mls/hr Q10H IV Last administered on 09/01/18at 05:45; Start 08/31/18 at 18:30; Stop 09/01/18 at 09:41; Status DC Ondansetron HCl (Zofran) 4 mg PRN Q4HRS PRN IV NAUSEA/VOMITING; Start 08/31/18 at 18:00 Acetaminophen (Tylenol) 650 mg PRN Q4HRS PRN PO TEMP OVER 100.4F OR MILD PAIN; Start 08/31/18 at 18:00 Al Hydroxide/Mg Hydroxide (Mylanta Plus Xs) 30 ml PRN DAILY PRN PO HEARTBURN / GAS; Start 08/31/18 at 18:00 Clonidine HCl (Catapres) 0.1 mg PRN Q6HRS PRN PO SBP>160 OR DBP>90 Last administered on 08/31/18at 21:10; Start 08/31/18 at 18:00 Sodium Monofluorophosphate (Fleet Adult) 133 ml PRN DAILY PRN GA CONSTIPATION; Start 08/31/18 at 18:00 Docusate Sodium (Colace) 100 mg PRN BID PRN PO CONSTIPATION; Start 08/31/18 at 18:00 Albuterol/ Ipratropium (Duoneb) 3 ml Q4HRS NEB Last administered on 09/02/18at 12:01; Start 08/31/18 at 18:00 Guaifenesin (Robitussin) 200 mg PRN Q4HRS PRN PO COUGH; Start 08/31/18 at 18:00 Lorazepam (Ativan) 0.5 mg PRN Q4HRS PRN PO ANXIETY / AGITATION; Start 08/31/18 at 18:00 Sodium Chloride 1,000 ml @ 1,920 mls/hr Q32M IV ; Start 08/31/18 at 18:04; Stop 08/31/18 at 19:04; Status DC Sodium Chloride 500 ml @ 1,000 mls/hr PRN Q30MIN PRN IV SEE COMMENTS; Start 08/31/18 at 18:15 Ceftriaxone Sodium (Rocephin) 1 gm Q24H IVP Last administered on 09/01/18at 18:36; Start 08/31/18 at 19:00 Insulin Human Lispro (HumaLOG) 0-5 UNITS TIDWMEALS SQ Last administered on 09/02/18at 12:13; Start 08/31/18 at 19:00 Furosemide (Lasix) 40 mg 1X ONCE PO Last administered on 09/01/18at 10:08; Start 09/01/18 at 10:00; Stop 09/01/18 at 10:01; Status DC Aspirin (Ecotrin) 81 mg DAILYWBKFT PO Last administered on 09/02/18at 09:39; Start 09/01/18 at 09:45 Active Scripts Active Reported Metformin Hcl Er (Metformin Hcl) 500 Mg Tab.er.24h 500 Mg PO DAILYWBKFT Metoprolol Succinate ( Xl ) (Metoprolol Succinate) 25 Mg Tab.er.24h 1 Tab PO DA DONITA Lisinopril 10 Mg Tablet 1 Tab PO DAILY Vitals/I & O Vital Sign - Last 24 Hours 09/01/18 09/01/18 09/01/18 09/01/18 15:00 16:55 19:20 19:45 Temp 98.3 97.8 98.3 97.8 Pulse 107 106 Resp 18 22 B/P (MAP) 136/67 (90) 152/78 (102) Pulse Ox 96 96 94 O2 Delivery Room Air Nasal Cannula Nasal Cannula Nasal Cannula O2 Flow Rate 2.0 2.0 2.0 09/01/18 09/01/18 09/01/18 09/02/18 20:25 23:26 23:40 03:31 Temp 97.9 97.9 Pulse 105 Resp 22 B/P (MAP) 148/72 (97) Pulse Ox 97 98 95 O2 Delivery Nasal Cannula Nasal Cannula Nasal Cannula Nasal Cannula O2 Flow Rate 2.0 2.0 2.0 2.0 09/02/18 09/02/18 09/02/18 09/02/18 03:50 07:00 08:26 09:40 Temp 97.4 97.6 97.4 97.6 Pulse 104 100 121 Resp 22 20 B/P (MAP) 129/68 (88) 143/83 (103) 143/83 Pulse Ox 93 96 98 O2 Delivery Nasal Cannula Nasal Cannula Nasal Cannula O2 Flow Rate 2.0 2.0 2.0 09/02/18 09/02/18 09/02/18 09:40 11:00 12:02 Temp 98.0 98.0 Pulse 121 106 Resp 24 B/P (MAP) 143/83 147/72 (97) Pulse Ox 96 O2 Delivery Nasal Cannula Nasal Cannula O2 Flow Rate 2.0 2.0 Intake and Output 09/01/18 09/01/18 09/02/18 15:00 23:00 07:00 Intake Total 400 ml Output Total 500 ml 1150 ml Balance -500 ml -750 ml TERESE CORADO MD September 02, 2018 12:26
[2018-09-02 15:00] VITALS: BP 145/79
[2018-09-02] MEDS ORDERED: METOPROLOL SUCC 24HR ER 25 MG TAB.ER.24H. PO ONE (15:00)
--- NOTE | 2018-09-02 15:55 | NUR ---
SS following for discharge planning. SS reviewed pt chart. Pt is from home with spouse and is currently requiring oxygen. No discharge needs noted at this time. SS will continue to follow for discharge planning.
--- NOTE | 2018-09-02 17:00 | PDOC ---
PULMONARY PROGRESS NOTES Subjective ABOUT THE SAME STILL SOA Vitals Vital Signs Date Time Temp Pulse Resp B/P (MAP) Pulse Ox O2 Delivery O2 Flow Rate FiO2 09/02/18 16:22 95 Nasal Cannula 2.0 09/02/18 15:14 111 145/79 09/02/18 15:00 97.8 24 97.8 ROS: No Nausea, No Chest Pain, No Abdominal Pain, No Increase Cough General: Alert Lungs: Wheezing Cardiovascular: S1, S2 Abdomen: Soft Neuro Exam: Alert Extremities: No Edema Skin: Warm Labs Laboratory Tests Test 08/31/18 18:15 08/31/18 20:48 08/31/18 22:15 09/01/18 04:20 Activated Partial Thromboplast Time 32 SEC (24-38) Fibrinogen 560 mg/dL (200-440) Procalcitonin 0.15 ng/mL (0.00-0.10) Glucose (Fingerstick) 316 mg/dL (70-99) Urine Collection Type Unknown Urine Color Yellow Urine Clarity Clear Urine pH 6.0 Urine Specific Mobile 1.025 Urine Protein Negative mg/dL (NEG-TRACE) Urine Glucose (UA) >=1000 mg/dL (NEG) Urine Ketones (Stick) Negative mg/dL (NEG) Urine Blood Negative (NEG) Urine Nitrite Negative (NEG) Urine Bilirubin Negative (NEG) Urine Urobilinogen Dipstick 1.0 mg/dL (0.2 mg/dL) Urine Leukocyte Esterase Negative (NEG) Urine RBC Occ /HPF (0-2) Urine WBC Occ /HPF (0-4) Urine Squamous Epithelial Cells Occ /LPF Urine Bacteria 0 /HPF (0-FEW) White Blood Count 5.8 x10^3/uL (4.0-11.0) Red Blood Count 3.95 x10^6/uL (4.30-5.70) Hemoglobin 11.8 g/dL (13.0-17.5) Hematocrit 36.2 % (39.0-53.0) Mean Corpuscular Volume 92 fL (79-100) Mean Corpuscular Hemoglobin 30 pg (25-35) Mean Corpuscular Hemoglobin Concent 33 g/dL (31-37) Red Cell Distribution Width 13.8 % (11.5-14.5) Platelet Count 114 x10^3/uL (140-400) Neutrophils (%) (Auto) 89 % (31-73) Lymphocytes (%) (Auto) 8 % (24-48) Monocytes (%) (Auto) 4 % (0-9) Eosinophils (%) (Auto) 0 % (0-3) Basophils (%) (Auto) 0 % (0-3) Neutrophils # (Auto) 5.1 x10^3uL (1.8-7.7) Lymphocytes # (Auto) 0.4 x10^3/uL (1.0-4.8) Monocytes # (Auto) 0.2 x10^3/uL (0.0-1.1) Eosinophils # (Auto) 0.0 x10^3/uL (0.0-0.7) Basophils # (Auto) 0.0 x10^3/uL (0.0-0.2) Sodium Level 139 mmol/L (136-145) Potassium Level 3.5 mmol/L (3.5-5.1) Chloride Level 101 mmol/L (98-107) Carbon Dioxide Level 30 mmol/L (21-32) Anion Gap 8 (6-14) Blood Urea Nitrogen 12 mg/dL (8-26) Creatinine 0.8 mg/dL (0.7-1.3) Estimated GFR (Cockcroft-Gault) 97.3 Glucose Level 192 mg/dL (70-99) Calcium Level 8.5 mg/dL (8.5-10.1) Troponin I Quantitative 0.044 ng/mL (0.000-0.055) Triglycerides Level 94 mg/dL (0-150) Cholesterol Level 155 mg/dL (0-200) LDL Cholesterol, Calculated 96 mg/dL (0-100) VLDL Cholesterol, Calculated 19 mg/dL (0-40) Non-HDL Cholesterol Calculated 115 mg/dL (0-129) HDL Cholesterol 40 mg/dL (40-60) Cholesterol/HDL Ratio 3.9 Test 09/01/18 07:34 09/01/18 11:24 09/01/18 16:50 09/01/18 21:01 Glucose (Fingerstick) 176 mg/dL (70-99) 242 mg/dL (70-99) 183 mg/dL (70-99) 238 mg/dL (70-99) Test 09/02/18 03:30 09/02/18 03:35 09/02/18 08:00 09/02/18 11:34 White Blood Count 11.4 x10^3/uL (4.0-11.0) Red Blood Count 4.08 x10^6/uL (4.30-5.70) Hemoglobin 12.1 g/dL (13.0-17.5) Hematocrit 37.5 % (39.0-53.0) Mean Corpuscular Volume 92 fL (79-100) Mean Corpuscular Hemoglobin 30 pg (25-35) Mean Corpuscular Hemoglobin Concent 32 g/dL (31-37) Red Cell Distribution Width 13.8 % (11.5-14.5) Platelet Count 130 x10^3/uL (140-400) Neutrophils (%) (Auto) 92 % (31-73) Lymphocytes (%) (Auto) 4 % (24-48) Monocytes (%) (Auto) 4 % (0-9) Eosinophils (%) (Auto) 0 % (0-3) Basophils (%) (Auto) 0 % (0-3) Neutrophils # (Auto) 10.5 x10^3uL (1.8-7.7) Lymphocytes # (Auto) 0.5 x10^3/uL (1.0-4.8) Monocytes # (Auto) 0.4 x10^3/uL (0.0-1.1) Eosinophils # (Auto) 0.0 x10^3/uL (0.0-0.7) Basophils # (Auto) 0.0 x10^3/uL (0.0-0.2) Segmented Neutrophils % 91 % (35-66) Band Neutrophils % 4 % (0-9) Lymphocytes % 4 % (24-48) Monocytes % 1 % (0-10) Platelet Estimate Adequate (ADEQUATE) Large Platelets Present Sodium Level 141 mmol/L (136-145) Potassium Level 3.9 mmol/L (3.5-5.1) Chloride Level 102 mmol/L (98-107) Carbon Dioxide Level 32 mmol/L (21-32) Anion Gap 7 (6-14) Blood Urea Nitrogen 18 mg/dL (8-26) Creatinine 0.8 mg/dL (0.7-1.3) Estimated GFR (Cockcroft-Gault) 97.3 BUN/Creatinine Ratio 23 (6-20) Glucose Level 203 mg/dL (70-99) Calcium Level 8.7 mg/dL (8.5-10.1) Total Bilirubin 0.3 mg/dL (0.2-1.0) Aspartate Amino Transf (AST/SGOT) 50 U/L (15-37) Alanine Aminotransferase (ALT/SGPT) 121 U/L (16-63) Alkaline Phosphatase 60 U/L (46-116) Total Protein 6.5 g/dL (6.4-8.2) Albumin 3.1 g/dL (3.4-5.0) Albumin/Globulin Ratio 0.9 (1.0-1.7) Glucose (Fingerstick) 175 mg/dL (70-99) 274 mg/dL (70-99) Test 09/02/18 16:49 Glucose (Fingerstick) 179 mg/dL (70-99) Laboratory Tests Test 09/01/18 21:01 09/02/18 03:30 09/02/18 03:35 09/02/18 08:00 Glucose (Fingerstick) 238 mg/dL (70-99) 175 mg/dL (70-99) White Blood Count 11.4 x10^3/uL (4.0-11.0) Red Blood Count 4.08 x10^6/uL (4.30-5.70) Hemoglobin 12.1 g/dL (13.0-17.5) Hematocrit 37.5 % (39.0-53.0) Mean Corpuscular Volume 92 fL (79-100) Mean Corpuscular Hemoglobin 30 pg (25-35) Mean Corpuscular Hemoglobin Concent 32 g/dL (31-37) Red Cell Distribution Width 13.8 % (11.5-14.5) Platelet Count 130 x10^3/uL (140-400) Neutrophils (%) (Auto) 92 % (31-73) Lymphocytes (%) (Auto) 4 % (24-48) Monocytes (%) (Auto) 4 % (0-9) Eosinophils (%) (Auto) 0 % (0-3) Basophils (%) (Auto) 0 % (0-3) Neutrophils # (Auto) 10.5 x10^3uL (1.8-7.7) Lymphocytes # (Auto) 0.5 x10^3/uL (1.0-4.8) Monocytes # (Auto) 0.4 x10^3/uL (0.0-1.1) Eosinophils # (Auto) 0.0 x10^3/uL (0.0-0.7) Basophils # (Auto) 0.0 x10^3/uL (0.0-0.2) Segmented Neutrophils % 91 % (35-66) Band Neutrophils % 4 % (0-9) Lymphocytes % 4 % (24-48) Monocytes % 1 % (0-10) Platelet Estimate Adequate (ADEQUATE) Large Platelets Present Sodium Level 141 mmol/L (136-145) Potassium Level 3.9 mmol/L (3.5-5.1) Chloride Level 102 mmol/L (98-107) Carbon Dioxide Level 32 mmol/L (21-32) Anion Gap 7 (6-14) Blood Urea Nitrogen 18 mg/dL (8-26) Creatinine 0.8 mg/dL (0.7-1.3) Estimated GFR (Cockcroft-Gault) 97.3 BUN/Creatinine Ratio 23 (6-20) Glucose Level 203 mg/dL (70-99) Calcium Level 8.7 mg/dL (8.5-10.1) Total Bilirubin 0.3 mg/dL (0.2-1.0) Aspartate Amino Transf (AST/SGOT) 50 U/L (15-37) Alanine Aminotransferase (ALT/SGPT) 121 U/L (16-63) Alkaline Phosphatase 60 U/L (46-116) Total Protein 6.5 g/dL (6.4-8.2) Albumin 3.1 g/dL (3.4-5.0) Albumin/Globulin Ratio 0.9 (1.0-1.7) Test 09/02/18 11:34 09/02/18 16:49 Glucose (Fingerstick) 274 mg/dL (70-99) 179 mg/dL (70-99) Medications Active Scripts Medications Dose Route/Sig Max Daily Dose Days Date Category Metformin Hcl Er (Metformin Hcl) 500 Mg Tab.er.24h 500 Mg PO DAILYWBKFT 08/31/18 Reported Metoprolol Succinate ( Xl ) (Metoprolol Succinate) 25 Mg Tab.er.24h 1 Tab PO DAILY 08/31/18 Reported Lisinopril 10 Mg Tablet 1 Tab PO DAILY 08/31/18 Reported Impression . : 1. Abnormal CT compatible with pneumonia. 2. Suspect pneumonia, suspect gram negative. 3. Acute exacerbation of chronic obstructive pulmonary disease. 4. Acute respiratory failure. 5. Severe scoliosis. 6... AECOPD Plan . STEROIDS NEB SCOLIOSIS IS CONTRIBUTING TO SOA UP TO CHAIR WILL FOLLOW FOLLOW UP IN OFFICE ONCE D/C OK TO D/C SOON DESPITE WHEEZE HERNANDEZ AVILES MD September 02, 2018 17:00
[2018-09-02] MEDS: cefTRIAXone IV Push 1 GM VIAL. IVP SCH (18:22)
[2018-09-02 19:35] VITALS: BP 161/74
[2018-09-02] MEDS: ENOXAPARIN 40 MG/0.4 ML SYRINGE. SQ SCH (21:22)
[2018-09-02 23:50] VITALS: BP 123/74
[2018-09-03 03:57] VITALS: BP 122/66
[2018-09-03] MEDS: IPRATRPIUM/ALBUTEROL 0.5/2.5MG 3 ML NEBU. NEB SCH ×6 (04:00→23:37)
[2018-09-03] MEDS: methylPREDNISolone SOD SUCC PF 125 MG/2 ML VIAL. IV SCH ×2 (06:22→14:00)
[2018-09-03 07:00] VITALS: BP 160/80
[2018-09-03 08:31] LABS: BASO % 0 % (0-3); EOS % 0 % (0-3); HEMATOCRIT 39.2 % (39.0-53.0); LYMPH # 0.6 x10^3/uL (1.0-4.8); LYMPH % 4 % (24-48); MEAN CORPUSCULAR HEMOGLOBIN 31 pg (25-35); MEAN CORPUSCULAR HGB CONC 33 g/dL (31-37); MEAN CORPUSCULAR VOLUME 93 fL (79-100); MONO # 0.5 x10^3/uL (0.0-1.1); MONO % 4 % (0-9); NEUT # 12.5 x10^3uL (1.8-7.7); NEUT % 92 % (31-73); PLATELET COUNT 161 x10^3/uL (140-400); RED BLOOD COUNT 4.22 x10^6/uL (4.30-5.70); RED CELL DISTRIBUTION WIDTH 13.8 % (11.5-14.5); WHITE BLOOD COUNT 13.6 x10^3/uL (4.0-11.0)
[2018-09-03] MEDS: LISINOPRIL 10 MG TABLET PO SCH (08:52)
[2018-09-03] MEDS: DOXYCYCLINE HYCLATE 100 MG TABLET PO SCH ×2 (08:52→21:20)
[2018-09-03] MEDS: ASPIRIN ENTERIC COATED 81 MG TABLET.DR. PO SCH (08:52)
[2018-09-03] MEDS: METOPROLOL SUCC 24HR ER 50 MG TAB.ER.24H. PO SCH (08:53)
[2018-09-03 08:57] LABS: ALBUMIN 3.4 g/dL (3.4-5.0); ALBUMIN/GLOBULIN RATIO 0.9 (1.0-1.7); CALCIUM 8.9 mg/dL (8.5-10.1); CREATININE 0.8 mg/dL (0.7-1.3); GFR 97.3; POTASSIUM 4.4 mmol/L (3.5-5.1); TOTAL BILIRUBIN 0.3 mg/dL (0.2-1.0)
[2018-09-03] MEDS: INSULIN LISPRO 300 UNITS/3 ML INSULN.PEN. SQ SCH ×3 (08:57→17:54)
[2018-09-03] MEDS: LACTOBACILLUS RHAMNOSUS GG 1 CAPSULE. PO SCH ×2 (09:38→21:20)
--- NOTE | 2018-09-03 09:50 | PDOC ---
PROGRESS NOTES History of Present Illness History of Present Illness VTE Prophylaxis Ordered VTE Prophylaxis Devices: Yes VTE Pharmacological Prophylaxi: Yes Assessment/Plan Assessment/Plan IMPRESSION: 1. acute hypoxic resp failure No evidence of pulmonary embolism. 2. Coronary artery calcifications. 3. reflux of contrast into the hepatic veins. Correlate for elevated right heart pressures with mild congestive changes. 4. lung base airspace opacities likely atelectasis or infiltrates with trace bilateral pleural effusions.C/W PNEUMONIA 5. hypertensive urgency 6. ACUTE COPD EXAC, slow to improve 7. MILD elevation troponin i demand type ischemia 8. PSVT: // paroxysmal atrial tach on tele rather than PAFIB. 9. hyperglycemia plan admit cvc icu bed serial troponin i pulm consult cardiology consult echo dvt prophylaxis iv steroids, taper emperic po doxy iv hydralazine 10mg q 4 hrs prn bp support ss insulin out pt stress testing planned 35 min pt exam, chart review, > 50% of time spent with exam, chart review, pt care coordination Vitals Vitals Vital Signs Date Time Temp Pulse Resp B/P (MAP) Pulse Ox O2 Delivery O2 Flow Rate FiO2 09/03/18 08:53 108 160/80 09/03/18 07:42 98 Nasal Cannula 3.0 09/03/18 07:00 97.9 22 97.9 Physical Exam General: Alert, Oriented X3, Cooperative, No acute distress, mild distress Heart: Regular rate (SR), Normal S1, Normal S2, Other (2/6 systolic murmur to LLS border) Lungs: Wheezing Abdomen: Normal bowel sounds, Soft Extremities: No cyanosis, Other (1+ bilateral LE pitting edema) Skin: No breakdown, No significant lesion Labs LABS Laboratory Tests Test 09/02/18 11:34 09/02/18 16:49 09/02/18 20:42 09/03/18 07:45 Glucose (Fingerstick) 274 mg/dL (70-99) 179 mg/dL (70-99) 264 mg/dL (70-99) White Blood Count 13.6 x10^3/uL (4.0-11.0) Red Blood Count 4.22 x10^6/uL (4.30-5.70) Hemoglobin 13.0 g/dL (13.0-17.5) Hematocrit 39.2 % (39.0-53.0) Mean Corpuscular Volume 93 fL (79-100) Mean Corpuscular Hemoglobin 31 pg (25-35) Mean Corpuscular Hemoglobin Concent 33 g/dL (31-37) Red Cell Distribution Width 13.8 % (11.5-14.5) Platelet Count 161 x10^3/uL (140-400) Neutrophils (%) (Auto) 92 % (31-73) Lymphocytes (%) (Auto) 4 % (24-48) Monocytes (%) (Auto) 4 % (0-9) Eosinophils (%) (Auto) 0 % (0-3) Basophils (%) (Auto) 0 % (0-3) Neutrophils # (Auto) 12.5 x10^3uL (1.8-7.7) Lymphocytes # (Auto) 0.6 x10^3/uL (1.0-4.8) Monocytes # (Auto) 0.5 x10^3/uL (0.0-1.1) Eosinophils # (Auto) 0.0 x10^3/uL (0.0-0.7) Basophils # (Auto) 0.0 x10^3/uL (0.0-0.2) Sodium Level 140 mmol/L (136-145) Potassium Level 4.4 mmol/L (3.5-5.1) Chloride Level 100 mmol/L (98-107) Carbon Dioxide Level 34 mmol/L (21-32) Anion Gap 6 (6-14) Blood Urea Nitrogen 19 mg/dL (8-26) Creatinine 0.8 mg/dL (0.7-1.3) Estimated GFR (Cockcroft-Gault) 97.3 BUN/Creatinine Ratio 24 (6-20) Glucose Level 211 mg/dL (70-99) Calcium Level 8.9 mg/dL (8.5-10.1) Total Bilirubin 0.3 mg/dL (0.2-1.0) Aspartate Amino Transf (AST/SGOT) 66 U/L (15-37) Alanine Aminotransferase (ALT/SGPT) 228 U/L (16-63) Alkaline Phosphatase 68 U/L (46-116) Total Protein 7.0 g/dL (6.4-8.2) Albumin 3.4 g/dL (3.4-5.0) Albumin/Globulin Ratio 0.9 (1.0-1.7) Test 09/03/18 07:56 Glucose (Fingerstick) 212 mg/dL (70-99) Assessment and Plan Assessmemt and Plan Problems Medical Problems: (1) Hypoxia Status: Acute Comment Review of Relevant I have reviewed the following items robert (where applicable) has been applied. Labs Laboratory Tests Test 09/01/18 11:24 09/01/18 16:50 09/01/18 21:01 09/02/18 03:30 Glucose (Fingerstick) 242 mg/dL (70-99) 183 mg/dL (70-99) 238 mg/dL (70-99) White Blood Count 11.4 x10^3/uL (4.0-11.0) Red Blood Count 4.08 x10^6/uL (4.30-5.70) Hemoglobin 12.1 g/dL (13.0-17.5) Hematocrit 37.5 % (39.0-53.0) Mean Corpuscular Volume 92 fL (79-100) Mean Corpuscular Hemoglobin 30 pg (25-35) Mean Corpuscular Hemoglobin Concent 32 g/dL (31-37) Red Cell Distribution Width 13.8 % (11.5-14.5) Platelet Count 130 x10^3/uL (140-400) Neutrophils (%) (Auto) 92 % (31-73) Lymphocytes (%) (Auto) 4 % (24-48) Monocytes (%) (Auto) 4 % (0-9) Eosinophils (%) (Auto) 0 % (0-3) Basophils (%) (Auto) 0 % (0-3) Neutrophils # (Auto) 10.5 x10^3uL (1.8-7.7) Lymphocytes # (Auto) 0.5 x10^3/uL (1.0-4.8) Monocytes # (Auto) 0.4 x10^3/uL (0.0-1.1) Eosinophils # (Auto) 0.0 x10^3/uL (0.0-0.7) Basophils # (Auto) 0.0 x10^3/uL (0.0-0.2) Segmented Neutrophils % 91 % (35-66) Band Neutrophils % 4 % (0-9) Lymphocytes % 4 % (24-48) Monocytes % 1 % (0-10) Platelet Estimate Adequate (ADEQUATE) Large Platelets Present Test 09/02/18 03:35 09/02/18 08:00 09/02/18 11:34 09/02/18 16:49 Sodium Level 141 mmol/L (136-145) Potassium Level 3.9 mmol/L (3.5-5.1) Chloride Level 102 mmol/L (98-107) Carbon Dioxide Level 32 mmol/L (21-32) Anion Gap 7 (6-14) Blood Urea Nitrogen 18 mg/dL (8-26) Creatinine 0.8 mg/dL (0.7-1.3) Estimated GFR (Cockcroft-Gault) 97.3 BUN/Creatinine Ratio 23 (6-20) Glucose Level 203 mg/dL (70-99) Calcium Level 8.7 mg/dL (8.5-10.1) Total Bilirubin 0.3 mg/dL (0.2-1.0) Aspartate Amino Transf (AST/SGOT) 50 U/L (15-37) Alanine Aminotransferase (ALT/SGPT) 121 U/L (16-63) Alkaline Phosphatase 60 U/L (46-116) Total Protein 6.5 g/dL (6.4-8.2) Albumin 3.1 g/dL (3.4-5.0) Albumin/Globulin Ratio 0.9 (1.0-1.7) Glucose (Fingerstick) 175 mg/dL (70-99) 274 mg/dL (70-99) 179 mg/dL (70-99) Test 09/02/18 20:42 09/03/18 07:45 09/03/18 07:56 Glucose (Fingerstick) 264 mg/dL (70-99) 212 mg/dL (70-99) White Blood Count 13.6 x10^3/uL (4.0-11.0) Red Blood Count 4.22 x10^6/uL (4.30-5.70) Hemoglobin 13.0 g/dL (13.0-17.5) Hematocrit 39.2 % (39.0-53.0) Mean Corpuscular Volume 93 fL (79-100) Mean Corpuscular Hemoglobin 31 pg (25-35) Mean Corpuscular Hemoglobin Concent 33 g/dL (31-37) Red Cell Distribution Width 13.8 % (11.5-14.5) Platelet Count 161 x10^3/uL (140-400) Neutrophils (%) (Auto) 92 % (31-73) Lymphocytes (%) (Auto) 4 % (24-48) Monocytes (%) (Auto) 4 % (0-9) Eosinophils (%) (Auto) 0 % (0-3) Basophils (%) (Auto) 0 % (0-3) Neutrophils # (Auto) 12.5 x10^3uL (1.8-7.7) Lymphocytes # (Auto) 0.6 x10^3/uL (1.0-4.8) Monocytes # (Auto) 0.5 x10^3/uL (0.0-1.1) Eosinophils # (Auto) 0.0 x10^3/uL (0.0-0.7) Basophils # (Auto) 0.0 x10^3/uL (0.0-0.2) Sodium Level 140 mmol/L (136-145) Potassium Level 4.4 mmol/L (3.5-5.1) Chloride Level 100 mmol/L (98-107) Carbon Dioxide Level 34 mmol/L (21-32) Anion Gap 6 (6-14) Blood Urea Nitrogen 19 mg/dL (8-26) Creatinine 0.8 mg/dL (0.7-1.3) Estimated GFR (Cockcroft-Gault) 97.3 BUN/Creatinine Ratio 24 (6-20) Glucose Level 211 mg/dL (70-99) Calcium Level 8.9 mg/dL (8.5-10.1) Total Bilirubin 0.3 mg/dL (0.2-1.0) Aspartate Amino Transf (AST/SGOT) 66 U/L (15-37) Alanine Aminotransferase (ALT/SGPT) 228 U/L (16-63) Alkaline Phosphatase 68 U/L (46-116) Total Protein 7.0 g/dL (6.4-8.2) Albumin 3.4 g/dL (3.4-5.0) Albumin/Globulin Ratio 0.9 (1.0-1.7) Laboratory Tests Test 09/02/18 11:34 09/02/18 16:49 09/02/18 20:42 09/03/18 07:45 Glucose (Fingerstick) 274 mg/dL (70-99) 179 mg/dL (70-99) 264 mg/dL (70-99) White Blood Count 13.6 x10^3/uL (4.0-11.0) Red Blood Count 4.22 x10^6/uL (4.30-5.70) Hemoglobin 13.0 g/dL (13.0-17.5) Hematocrit 39.2 % (39.0-53.0) Mean Corpuscular Volume 93 fL (79-100) Mean Corpuscular Hemoglobin 31 pg (25-35) Mean Corpuscular Hemoglobin Concent 33 g/dL (31-37) Red Cell Distribution Width 13.8 % (11.5-14.5) Platelet Count 161 x10^3/uL (140-400) Neutrophils (%) (Auto) 92 % (31-73) Lymphocytes (%) (Auto) 4 % (24-48) Monocytes (%) (Auto) 4 % (0-9) Eosinophils (%) (Auto) 0 % (0-3) Basophils (%) (Auto) 0 % (0-3) Neutrophils # (Auto) 12.5 x10^3uL (1.8-7.7) Lymphocytes # (Auto) 0.6 x10^3/uL (1.0-4.8) Monocytes # (Auto) 0.5 x10^3/uL (0.0-1.1) Eosinophils # (Auto) 0.0 x10^3/uL (0.0-0.7) Basophils # (Auto) 0.0 x10^3/uL (0.0-0.2) Sodium Level 140 mmol/L (136-145) Potassium Level 4.4 mmol/L (3.5-5.1) Chloride Level 100 mmol/L (98-107) Carbon Dioxide Level 34 mmol/L (21-32) Anion Gap 6 (6-14) Blood Urea Nitrogen 19 mg/dL (8-26) Creatinine 0.8 mg/dL (0.7-1.3) Estimated GFR (Cockcroft-Gault) 97.3 BUN/Creatinine Ratio 24 (6-20) Glucose Level 211 mg/dL (70-99) Calcium Level 8.9 mg/dL (8.5-10.1) Total Bilirubin 0.3 mg/dL (0.2-1.0) Aspartate Amino Transf (AST/SGOT) 66 U/L (15-37) Alanine Aminotransferase (ALT/SGPT) 228 U/L (16-63) Alkaline Phosphatase 68 U/L (46-116) Total Protein 7.0 g/dL (6.4-8.2) Albumin 3.4 g/dL (3.4-5.0) Albumin/Globulin Ratio 0.9 (1.0-1.7) Test 09/03/18 07:56 Glucose (Fingerstick) 212 mg/dL (70-99) Microbiology 08/31/18 Blood Culture - Preliminary, Resulted NO GROWTH AFTER 2 DAYS 09/01/18 - Final, Resulted 09/01/18 - Final, Resulted 09/01/18 - Final, Resulted 09/01/18 Gram Stain Evaluation - Final, Resulted 09/01/18 Sputum Culture, Resulted Pending Medications Current Medications Albuterol/ Ipratropium (Duoneb) 3 ml 1X ONCE NEB Last administered on 08/31/18at 12:36; Start 08/31/18 at 12:45; Stop 08/31/18 at 13:36; Status DC Methylprednisolone Sodium Succinate (SOLU-Medrol 125MG VIAL) 125 mg 1X ONCE IV Last administered on 08/31/18at 13:52; Start 08/31/18 at 12:45; Stop 08/31/18 at 13:36; Status DC Doxycycline Hyclate 100 mg/ Dextrose 100 ml @ 50 mls/hr 1X ONCE IV Last administered on 08/31/18at 14:14; Start 08/31/18 at 14:00; Stop 08/31/18 at 15:59; Status DC Aspirin (Children'S Aspirin) 324 mg 1X ONCE PO Last administered on 08/31/18at 14:03; Start 08/31/18 at 14:00; Stop 08/31/18 at 14:01; Status DC Albuterol/ Ipratropium (Duoneb) 3 ml RTQID NEB Last administered on 08/31/18at 16:32; Start 08/31/18 at 16:00; Stop 09/01/18 at 00:12; Status DC Iohexol (Omnipaque 350 Mg/ml) 90 ml 1X ONCE IV Last administered on 08/31/18at 14:15; Start 08/31/18 at 14:15; Stop 08/31/18 at 14:16; Status DC Lisinopril (Prinivil) 10 mg DAILY PO Last administered on 09/03/18at 08:52; Start 09/01/18 at 09:00 Metoprolol Succinate (Toprol Xl) 25 mg DAILY PO Last administered on 09/02/18at 09:40; Start 09/01/18 at 09:00; Stop 09/02/18 at 14:54; Status DC Dextrose (Dextrose 50%-Water Syringe) 12.5 gm PRN Q15MIN PRN IV SEE COMMENTS; Start 08/31/18 at 17:00 Hydralazine HCl (Apresoline Inj) 10 mg PRN Q4HRS PRN IVP ELEVATED BP, SEE COMMENTS; Start 08/31/18 at 17:45 Methylprednisolone Sodium Succinate (SOLU-Medrol 125MG VIAL) 80 mg Q8HRS IV Last administered on 09/03/18at 06:22; Start 08/31/18 at 22:00 Doxycycline Hyclate 100 mg/ Dextrose 100 ml @ 50 mls/hr Q12HR IV Last administered on 09/02/18at 21:21; Start 08/31/18 at 21:00; Stop 09/03/18 at 07:53; Status DC Enoxaparin Sodium (Lovenox 40mg Syringe) 40 mg Q24H SQ Last administered on 09/02/18at 21:22; Start 08/31/18 at 21:00 Sodium Chloride (Normal Saline Flush 3ml) 3 ml QSHIFT PRN IV AFTER MEDS AND BLOOD DRAWS; Start 08/31/18 at 18:00 Sodium Chloride 1,000 ml @ 100 mls/hr Q10H IV Last administered on 09/01/18at 05:45; Start 08/31/18 at 18:30; Stop 09/01/18 at 09:41; Status DC Ondansetron HCl (Zofran) 4 mg PRN Q4HRS PRN IV NAUSEA/VOMITING; Start 08/31/18 at 18:00 Acetaminophen (Tylenol) 650 mg PRN Q4HRS PRN PO TEMP OVER 100.4F OR MILD PAIN; Start 08/31/18 at 18:00 Al Hydroxide/Mg Hydroxide (Mylanta Plus Xs) 30 ml PRN DAILY PRN PO HEARTBURN / GAS; Start 08/31/18 at 18:00 Clonidine HCl (Catapres) 0.1 mg PRN Q6HRS PRN PO SBP>160 OR DBP>90 Last a dministered on 08/31/18at 21:10; Start 08/31/18 at 18:00 Sodium Monofluorophosphate (Fleet Adult) 133 ml PRN DAILY PRN CA CONSTIPATION; Start 08/31/18 at 18:00 Docusate Sodium (Colace) 100 mg PRN BID PRN PO CONSTIPATION; Start 08/31/18 at 18:00 Albuterol/ Ipratropium (Duoneb) 3 ml Q4HRS NEB Last administered on 09/03/18 07:41; Start 08/31/18 at 18:00 Guaifenesin (Robitussin) 200 mg PRN Q4HRS PRN PO COUGH; Start 08/31/18 at 18:00 Lorazepam (Ativan) 0.5 mg PRN Q4HRS PRN PO ANXIETY / AGITATION; Start 08/31/18 at 18:00 Sodium Chloride 1,000 ml @ 1,920 mls/hr Q32M IV ; Start 08/31/18 at 18:04; Stop 08/31/18 at 19:04; Status DC Sodium Chloride 500 ml @ 1,000 mls/hr PRN Q30MIN PRN IV SEE COMMENTS; Start 08/31/18 at 18:15 Ceftriaxone Sodium (Rocephin) 1 gm Q24H IVP Last administered on 09/02/18at 18:22; Start 08/31/18 at 19:00 Insulin Human Lispro (HumaLOG) 0-5 UNITS TIDWMEALS SQ Last administered on 09/03/18 08:57; Start 08/31/18 at 19:00 Furosemide (Lasix) 40 mg 1X ONCE PO Last administered on 09/01/18 10:08; Start 09/01/18 at 10:00; Stop 09/01/18 at 10:01; Status DC Aspirin (Ecotrin) 81 mg DAILYWBKFT PO Last administered on 09/03/18 08:52; Start 09/01/18 at 09:45 Metoprolol Succinate (Toprol Xl) 50 mg DAILY PO Last administered on 5/2/19at 08:53; Start 09/03/18 at 09:00 Metoprolol Succinate (Toprol Xl) 25 mg 1X ONCE PO Last administered on 09/02/18at 15:14; Start 09/02/18 at 15:00; Stop 09/02/18 at 15:01; Status DC Lactobacillus Rhamnosus (Culturelle) 1 cap BID PO Last administered on 09/03/18at 09:38; Start 09/03/18 at 09:00 Doxycycline Hyclate (Vibra-Tab) 100 mg BID PO Last administered on 09/03/18at 08:52; Start 09/03/18 at 09:00 Active Scripts Active Reported Metformin Hcl Er (Metformin Hcl) 500 Mg Tab.er.24h 500 Mg PO DAILYWBKFT Metoprolol Succinate ( Xl ) (Metoprolol Succinate) 25 Mg Tab.er.24h 1 Tab PO DAILY Lisinopril 10 Mg Tablet 1 Tab PO DAILY Vitals/I & O Vital Sign - Last 24 Hours 09/02/18 09/02/18 09/02/18 09/02/18 11:00 12:02 15:00 15:14 Temp 98.0 97.8 98.0 97.8 Pulse 106 112 111 Resp 24 24 B/P (MAP) 147/72 (97) 145/79 (101) 145/79 Pulse Ox 96 93 O2 Delivery Nasal Cannula Nasal Cannula Nasal Cannula O2 Flow Rate 2.0 2.0 2.0 09/02/18 09/02/18 09/02/18 09/02/18 16:22 19:35 20:00 20:16 Temp 98.3 98.3 Pulse 109 Resp 19 B/P (MAP) 161/74 (103) Pulse Ox 95 98 95 O2 Delivery Nasal Cannula Nasal Cannula Nasal Cannula Nasal Cannula O2 Flow Rate 2.0 2.0 2.0 2.0 09/02/18 09/02/18 09/03/18 09/03/18 23:47 23:50 03:57 04:06 Temp 98.2 98.0 98.2 98.0 Pulse 100 97 Resp 18 17 B/P (MAP) 123/74 (90) 122/66 (84) Pulse Ox 95 97 98 95 O2 Delivery Nasal Cannula Nasal Cannula Nasal Cannula Nasal Cannula O2 Flow Rate 2.0 2.0 2.0 2.0 09/03/18 09/03/18 09/03/18 09/03/18 07:00 07:42 08:52 08:53 Temp 97.9 97.9 Pulse 108 112 108 Resp 22 B/P (MAP) 160/80 (106) 160/80 160/80 Pulse Ox 96 98 O2 Delivery Nasal Cannula Nasal Cannula O2 Flow Rate 3.0 3.0 Intake and Output 09/02/18 09/02/18 09/03/18 14:59 22:59 06:59 Intake Total 500 ml 500 ml Output Total 400 ml 700 ml Balance 100 ml -200 ml TERESE CORADO MD September 03, 2018 09:50
[2018-09-03 11:00] VITALS: BP 154/76
--- NOTE | 2018-09-03 14:56 | PDOC ---
PULMONARY PROGRESS NOTES Subjective slowly improving Vitals Vital Signs Date Time Temp Pulse Resp B/P (MAP) Pulse Ox O2 Delivery O2 Flow Rate FiO2 09/03/18 11:00 97.9 100 20 154/76 (102) 90 Room Air 97.9 09/03/18 08:00 2.0 ROS: No Nausea, No Chest Pain, No Abdominal Pain, No Increase Cough General: Alert, No acute distress Lungs: Wheezing (faint) Cardiovascular: S1, S2 Abdomen: Soft Neuro Exam: Alert Extremities: No Edema Skin: Warm Labs Laboratory Tests Test 09/01/18 16:50 09/01/18 21:01 09/02/18 03:30 09/02/18 03:35 Glucose (Fingerstick) 183 mg/dL (70-99) 238 mg/dL (70-99) White Blood Count 11.4 x10^3/uL (4.0-11.0) Red Blood Count 4.08 x10^6/uL (4.30-5.70) Hemoglobin 12.1 g/dL (13.0-17.5) Hematocrit 37.5 % (39.0-53.0) Mean Corpuscular Volume 92 fL (79-100) Mean Corpuscular Hemoglobin 30 pg (25-35) Mean Corpuscular Hemoglobin Concent 32 g/dL (31-37) Red Cell Distribution Width 13.8 % (11.5-14.5) Platelet Count 130 x10^3/uL (140-400) Neutrophils (%) (Auto) 92 % (31-73) Lymphocytes (%) (Auto) 4 % (24-48) Monocytes (%) (Auto) 4 % (0-9) Eosinophils (%) (Auto) 0 % (0-3) Basophils (%) (Auto) 0 % (0-3) Neutrophils # (Auto) 10.5 x10^3uL (1.8-7.7) Lymphocytes # (Auto) 0.5 x10^3/uL (1.0-4.8) Monocytes # (Auto) 0.4 x10^3/uL (0.0-1.1) Eosinophils # (Auto) 0.0 x10^3/uL (0.0-0.7) Basophils # (Auto) 0.0 x10^3/uL (0.0-0.2) Segmented Neutrophils % 91 % (35-66) Band Neutrophils % 4 % (0-9) Lymphocytes % 4 % (24-48) Monocytes % 1 % (0-10) Platelet Estimate Adequate (ADEQUATE) Large Platelets Present Sodium Level 141 mmol/L (136-145) Potassium Level 3.9 mmol/L (3.5-5.1) Chloride Level 102 mmol/L (98-107) Carbon Dioxide Level 32 mmol/L (21-32) Anion Gap 7 (6-14) Blood Urea Nitrogen 18 mg/dL (8-26) Creatinine 0.8 mg/dL (0.7-1.3) Estimated GFR (Cockcroft-Gault) 97.3 BUN/Creatinine Ratio 23 (6-20) Glucose Level 203 mg/dL (70-99) Calcium Level 8.7 mg/dL (8.5-10.1) Total Bilirubin 0.3 mg/dL (0.2-1.0) Aspartate Amino Transf (AST/SGOT) 50 U/L (15-37) Alanine Aminotransferase (ALT/SGPT) 121 U/L (16-63) Alkaline Phosphatase 60 U/L (46-116) Total Protein 6.5 g/dL (6.4-8.2) Albumin 3.1 g/dL (3.4-5.0) Albumin/Globulin Ratio 0.9 (1.0-1.7) Test 09/02/18 08:00 09/02/18 11:34 09/02/18 16:49 09/02/18 20:42 Glucose (Fingerstick) 175 mg/dL (70-99) 274 mg/dL (70-99) 179 mg/dL (70-99) 264 mg/dL (70-99) Test 09/03/18 07:45 09/03/18 07:56 09/03/18 11:41 White Blood Count 13.6 x10^3/uL (4.0-11.0) Red Blood Count 4.22 x10^6/uL (4.30-5.70) Hemoglobin 13.0 g/dL (13.0-17.5) Hematocrit 39.2 % (39.0-53.0) Mean Corpuscular Volume 93 fL (79-100) Mean Corpuscular Hemoglobin 31 pg (25-35) Mean Corpuscular Hemoglobin Concent 33 g/dL (31-37) Red Cell Distribution Width 13.8 % (11.5-14.5) Platelet Count 161 x10^3/uL (140-400) Neutrophils (%) (Auto) 92 % (31-73) Lymphocytes (%) (Auto) 4 % (24-48) Monocytes (%) (Auto) 4 % (0-9) Eosinophils (%) (Auto) 0 % (0-3) Basophils (%) (Auto) 0 % (0-3) Neutrophils # (Auto) 12.5 x10^3uL (1.8-7.7) Lymphocytes # (Auto) 0.6 x10^3/uL (1.0-4.8) Monocytes # (Auto) 0.5 x10^3/uL (0.0-1.1) Eosinophils # (Auto) 0.0 x10^3/uL (0.0-0.7) Basophils # (Auto) 0.0 x10^3/uL (0.0-0.2) Sodium Level 140 mmol/L (136-145) Potassium Level 4.4 mmol/L (3.5-5.1) Chloride Level 100 mmol/L (98-107) Carbon Dioxide Level 34 mmol/L (21-32) Anion Gap 6 (6-14) Blood Urea Nitrogen 19 mg/dL (8-26) Creatinine 0.8 mg/dL (0.7-1.3) Estimated GFR (Cockcroft-Gault) 97.3 BUN/Creatinine Ratio 24 (6-20) Glucose Level 211 mg/dL (70-99) Calcium Level 8.9 mg/dL (8.5-10.1) Total Bilirubin 0.3 mg/dL (0.2-1.0) Aspartate Amino Transf (AST/SGOT) 66 U/L (15-37) Alanine Aminotransferase (ALT/SGPT) 228 U/L (16-63) Alkaline Phosphatase 68 U/L (46-116) Total Protein 7.0 g/dL (6.4-8.2) Albumin 3.4 g/dL (3.4-5.0) Albumin/Globulin Ratio 0.9 (1.0-1.7) Glucose (Fingerstick) 212 mg/dL (70-99) 253 mg/dL (70-99) Laboratory Tests Test 09/02/18 16:49 09/02/18 20:42 09/03/18 07:45 09/03/18 07:56 Glucose (Fingerstick) 179 mg/dL (70-99) 264 mg/dL (70-99) 212 mg/dL (70-99) White Blood Count 13.6 x10^3/uL (4.0-11.0) Red Blood Count 4.22 x10^6/uL (4.30-5.70) Hemoglobin 13.0 g/dL (13.0-17.5) Hematocrit 39.2 % (39.0-53.0) Mean Corpuscular Volume 93 fL (79-100) Mean Corpuscular Hemoglobin 31 pg (25-35) Mean Corpuscular Hemoglobin Concent 33 g/dL (31-37) Red Cell Distribution Width 13.8 % (11.5-14.5) Platelet Count 161 x10^3/uL (140-400) Neutrophils (%) (Auto) 92 % (31-73) Lymphocytes (%) (Auto) 4 % (24-48) Monocytes (%) (Auto) 4 % (0-9) Eosinophils (%) (Auto) 0 % (0-3) Basophils (%) (Auto) 0 % (0-3) Neutrophils # (Auto) 12.5 x10^3uL (1.8-7.7) Lymphocytes # (Auto) 0.6 x10^3/uL (1.0-4.8) Monocytes # (Auto) 0.5 x10^3/uL (0.0-1.1) Eosinophils # (Auto) 0.0 x10^3/uL (0.0-0.7) Basophils # (Auto) 0.0 x10^3/uL (0.0-0.2) Sodium Level 140 mmol/L (136-145) Potassium Level 4.4 mmol/L (3.5-5.1) Chloride Level 100 mmol/L (98-107) Carbon Dioxide Level 34 mmol/L (21-32) Anion Gap 6 (6-14) Blood Urea Nitrogen 19 mg/dL (8-26) Creatinine 0.8 mg/dL (0.7-1.3) Estimated GFR (Cockcroft-Gault) 97.3 BUN/Creatinine Ratio 24 (6-20) Glucose Level 211 mg/dL (70-99) Calcium Level 8.9 mg/dL (8.5-10.1) Total Bilirubin 0.3 mg/dL (0.2-1.0) Aspartate Amino Transf (AST/SGOT) 66 U/L (15-37) Alanine Aminotransferase (ALT/SGPT) 228 U/L (16-63) Alkaline Phosphatase 68 U/L (46-116) Total Protein 7.0 g/dL (6.4-8.2) Albumin 3.4 g/dL (3.4-5.0) Albumin/Globulin Ratio 0.9 (1.0-1.7) Test 09/03/18 11:41 Glucose (Fingerstick) 253 mg/dL (70-99) Medications Active Scripts Medications Dose Route/Sig Max Daily Dose Days Date Category Metformin Hcl Er (Metformin Hcl) 500 Mg Tab.er.24h 500 Mg PO DAILYWBKFT 08/31/18 Reported Metoprolol Succinate ( Xl ) (Metoprolol Succinate) 25 Mg Tab.er.24h 1 Tab PO DAILY 08/31/18 Reported Lisinopril 10 Mg Tablet 1 Tab PO DAILY 08/31/18 Reported Impression . : 1. Abnormal CT compatible with mild LLL pneumonia. 2. Suspect pneumonia, suspect gram negative. 3. Acute exacerbation of chronic obstructive pulmonary disease. 4. Acute respiratory failure. 5. Severe scoliosis. 6... AECOPD Plan . STEROIDS TAPER NEB SCOLIOSIS IS CONTRIBUTING TO CHRONIC SOA UP TO CHAIR WILL FOLLOW FOLLOW UP IN OFFICE ONCE D/C WITH DR STEFAN SWIFT [place] MD September 03, 2018 14:56
[2018-09-03 15:00] VITALS: BP 169/76
[2018-09-03] MEDS: cefTRIAXone IV Push 1 GM VIAL. IVP SCH (17:48)
[2018-09-03 19:30] VITALS: BP 157/88
[2018-09-03] MEDS: ENOXAPARIN 40 MG/0.4 ML SYRINGE. SQ SCH (21:20)
[2018-09-03] MEDS: methylPREDNISolone SOD SUCC PF 40 MG/ML VIAL. IV SCH (21:20)
[2018-09-03 23:54] VITALS: BP 168/86
[2018-09-04 03:29] VITALS: BP 139/80
[2018-09-04] MEDS: IPRATRPIUM/ALBUTEROL 0.5/2.5MG 3 ML NEBU. NEB SCH ×3 (04:00→12:00)
[2018-09-04] MEDS: methylPREDNISolone SOD SUCC PF 40 MG/ML VIAL. IV SCH (05:54)
[2018-09-04 07:00] VITALS: BP 156/94
--- NOTE | 2018-09-04 07:48 | PDOC ---
PROGRESS NOTES Chief Complaint Chief Complaint Acute hypoxic resp failure No evidence of pulmonary embolism. Coronary artery calcifications. Reflux of contrast into the hepatic veins. Correlate for elevated right heart pressures with mild congestive changes. Lung base airspace opacities likely atelectasis or infiltrates with trace bilate ral pleural effusions.C/W PNEUMONIA - d/c on doxy Hypertensive urgency ACUTE COPD EXAC, slow to improve MILD elevation troponin i demand type ischemia PSVT -paroxysmal atrial tach on tele rather than PAFIB. Hyperglycemia plan out pt stress testing planned D/c on nebs, doxy History of Present Illness History of Present Illness The patient is a 62-year-old that went to see his primary care doctor, Dr. Joe Castañeda with a 2-3-day history of cough and mucus production. He quit tobacco 16 years ago. He does not experience acute exacerbation of COPD. The patient also had severe scoliosis. He was having a difficult time performing activities of daily living. He was admitted. Seen by pulm and cardiology in consultation. Improved with doxy nebs. Vitals Vitals Vital Signs Date Time Temp Pulse Resp B/P (MAP) Pulse Ox O2 Delivery O2 Flow Rate FiO2 09/04/18 04:10 95 Nasal Cannula 2.0 09/04/18 03:29 98.2 103 26 139/80 (99) 98.2 Physical Exam General: Alert, Oriented X3, Cooperative, No acute distress, mild distress Heart: Regular rate (SR), Normal S1, Normal S2, Other (2/6 systolic murmur to LLS border) Lungs: Wheezing (faint) Abdomen: Normal bowel sounds, Soft Extremities: No cyanosis, Other (1+ bilateral LE pitting edema) Skin: No breakdown, No significant lesion Labs LABS Laboratory Tests Test 09/03/18 07:56 09/03/18 11:41 09/03/18 17:14 09/03/18 20:36 Glucose (Fingerstick) 212 mg/dL (70-99) 253 mg/dL (70-99) 185 mg/dL (70-99) 314 mg/dL (70-99) Test 09/04/18 07:37 Glucose (Fingerstick) 177 mg/dL (70-99) Assessment and Plan Assessmemt and Plan Problems Medical Problems: (1) Hypoxia Status: Acute Comment Review of Relevant I have reviewed the following items robert (where applicable) has been applied. Labs Laboratory Tests Test 09/02/18 08:00 09/02/18 11:34 09/02/18 16:49 09/02/18 20:42 Glucose (Fingerstick) 175 mg/dL (70-99) 274 mg/dL (70-99) 179 mg/dL (70-99) 264 mg/dL (70-99) Test 09/03/18 07:45 09/03/18 07:56 09/03/18 11:41 09/03/18 17:14 White Blood Count 13.6 x10^3/uL (4.0-11.0) Red Blood Count 4.22 x10^6/uL (4.30-5.70) Hemoglobin 13.0 g/dL (13.0-17.5) Hematocrit 39.2 % (39.0-53.0) Mean Corpuscular Volume 93 fL (79-100) Mean Corpuscular Hemoglobin 31 pg (25-35) Mean Corpuscular Hemoglobin Concent 33 g/dL (31-37) Red Cell Distribution Width 13.8 % (11.5-14.5) Platelet Count 161 x10^3/uL (140-400) Neutrophils (%) (Auto) 92 % (31-73) Lymphocytes (%) (Auto) 4 % (24-48) Monocytes (%) (Auto) 4 % (0-9) Eosinophils (%) (Auto) 0 % (0-3) Basophils (%) (Auto) 0 % (0-3) Neutrophils # (Auto) 12.5 x10^3uL (1.8-7.7) Lymphocytes # (Auto) 0.6 x10^3/uL (1.0-4.8) Monocytes # (Auto) 0.5 x10^3/uL (0.0-1.1) Eosinophils # (Auto) 0.0 x10^3/uL (0.0-0.7) Basophils # (Auto) 0.0 x10^3/uL (0.0-0.2) Sodium Level 140 mmol/L (136-145) Potassium Level 4.4 mmol/L (3.5-5.1) Chloride Level 100 mmol/L (98-107) Carbon Dioxide Level 34 mmol/L (21-32) Anion Gap 6 (6-14) Blood Urea Nitrogen 19 mg/dL (8-26) Creatinine 0.8 mg/dL (0.7-1.3) Estimated GFR (Cockcroft-Gault) 97.3 BUN/Creatinine Ratio 24 (6-20) Glucose Level 211 mg/dL (70-99) Calcium Level 8.9 mg/dL (8.5-10.1) Total Bilirubin 0.3 mg/dL (0.2-1.0) Aspartate Amino Transf (AST/SGOT) 66 U/L (15-37) Alanine Aminotransferase (ALT/SGPT) 228 U/L (16-63) Alkaline Phosphatase 68 U/L (46-116) Total Protein 7.0 g/dL (6.4-8.2) Albumin 3.4 g/dL (3.4-5.0) Albumin/Globulin Ratio 0.9 (1.0-1.7) Glucose (Fingerstick) 212 mg/dL (70-99) 253 mg/dL (70-99) 185 mg/dL (70-99) Test 09/03/18 20:36 09/04/18 07:37 Glucose (Fingerstick) 314 mg/dL (70-99) 177 mg/dL (70-99) Laboratory Tests Test 09/03/18 07:56 09/03/18 11:41 09/03/18 17:14 09/03/18 20:36 Glucose (Fingerstick) 212 mg/dL (70-99) 253 mg/dL (70-99) 185 mg/dL (70-99) 314 mg/dL (70-99) Test 09/04/18 07:37 Glucose (Fingerstick) 177 mg/dL (70-99) Microbiology 08/31/18 Blood Culture - Preliminary, Resulted NO GROWTH AFTER 3 DAYS 09/01/18 - Final, Complete 09/01/18 - Final, Complete 09/01/18 - Final, Complete 09/01/18 Gram Stain Evaluation - Final, Complete 09/01/18 Sputum Culture - Final, Complete 09/01/18 Sputum Result 1 - Final, Complete Medications Current Medications Albuterol/ Ipratropium (Duoneb) 3 ml 1X ONCE NEB Last administered on 08/31/18at 12:36; Start 08/31/18 at 12:45; Stop 08/31/18 at 13:36; Status DC Methylprednisolone Sodium Succinate (SOLU-Medrol 125MG VIAL) 125 mg 1X ONCE IV Last administered on 08/31/18at 13:52; Start 08/31/18 at 12:45; Stop 08/31/18 at 13:36; Status DC Doxycycline Hyclate 100 mg/ Dextrose 100 ml @ 50 mls/hr 1X ONCE IV Last administered on 08/31/18at 14:14; Start 08/31/18 at 14:00; Stop 08/31/18 at 15:59; Status DC Aspirin (Children'S Aspirin) 324 mg 1X ONCE PO Last administered on 08/31/18at 14:03; Start 08/31/18 at 14:00; Stop 08/31/18 at 14:01; Status DC Albuterol/ Ipratropium (Duoneb) 3 ml RTQID NEB Last administered on 08/31/18at 16:32; Start 08/31/18 at 16:00; Stop 09/01/18 at 00:12; Status DC Iohexol (Omnipaque 350 Mg/ml) 90 ml 1X ONCE IV Last administered on 08/31/18at 14:15; Start 08/31/18 at 14:15; Stop 08/31/18 at 14:16; Status DC Lisinopril (Prinivil) 10 mg DAILY PO Last administered on 09/03/18at 08:52; Start 09/01/18 at 09:00 Metoprolol Succinate (Toprol Xl) 25 mg DAILY PO Last administered on 09/02/18at 09:40; Start 09/01/18 at 09:00; Stop 09/02/18 at 14:54; Status DC Dextrose (Dextrose 50%-Water Syringe) 12.5 gm PRN Q15MIN PRN IV SEE COMMENTS; Start 08/31/18 at 17:00 Hydralazine HCl (Apresoline Inj) 10 mg PRN Q4HRS PRN IVP ELEVATED BP, SEE COMMENTS; Start 08/31/18 at 17:45 Methylprednisolone Sodium Succinate (SOLU-Medrol 125MG VIAL) 80 mg Q8HRS IV Last administered on 09/03/18at 14:00; Start 08/31/18 at 22:00; Stop 09/03/18 at 14:57; Status DC Doxycycline Hyclate 100 mg/ Dextrose 100 ml @ 50 mls/hr Q12HR IV Last administered on 09/02/18at 21:21; Start 08/31/18 at 21:00; Stop 09/03/18 at 07:53; Status DC Enoxaparin Sodium (Lovenox 40mg Syringe) 40 mg Q24H SQ Last administered on 09/03/18at 21:20; Start 08/31/18 at 21:00 Sodium Chloride (Normal Saline Flush 3ml) 3 ml QSHIFT PRN IV AFTER MEDS AND BLOOD DRAWS; Start 08/31/18 at 18:00 Sodium Chloride 1,000 ml @ 100 mls/hr Q10H IV Last administered on 09/01/18at 05:45; Start 08/31/18 at 18:30; Stop 09/01/18 at 09:41; Status DC Ondansetron HCl (Zofran) 4 mg PRN Q4HRS PRN IV NAUSEA/VOMITING; Start 08/31/18 at 18:00 Acetaminophen (Tylenol) 650 mg PRN Q4HRS PRN PO TEMP OVER 100.4F OR MILD PAIN; Start 08/31/18 at 18:00 Al Hydroxide/Mg Hydroxide (Mylanta Plus Xs) 30 ml PRN DAILY PRN PO HEARTBURN / GAS; Start 08/31/18 at 18:00 Clonidine HCl (Catapres) 0.1 mg PRN Q6HRS PRN PO SBP>160 OR DBP>90 Last administered on 08/31/18at 21:10; Start 08/31/18 at 18:00 Sodium Monofluorophosphate (Fleet Adult) 133 ml PRN DAILY PRN [place] CONSTIPATION; Start 08/31/18 at 18:00 Docusate Sodium (Colace) 100 mg PRN BID PRN PO CONSTIPATION; Start 08/31/18 at 18:00 Albuterol/ Ipratropium (Duoneb) 3 ml Q4HRS NEB Last administered on 09/04/18at 04:00; Start 08/31/18 at 18:00 Guaifenesin (Robitussin) 200 mg PRN Q4HRS PRN PO COUGH; Start 08/31/18 at 18:00 Lorazepam (Ativan) 0.5 mg PRN Q4HRS PRN PO ANXIETY / AGITATION; Start 08/31/18 at 18:00 Sodium Chloride 1,000 ml @ 1,920 mls/hr Q32M IV ; Start 08/31/18 at 18:04; Stop 08/31/18 at 19:04; Status DC Sodium Chloride 500 ml @ 1,000 mls/hr PRN Q30MIN PRN IV SEE COMMENTS; Start 08/31/18 at 18:15 Ceftriaxone Sodium (Rocephin) 1 gm Q24H IVP Last administered on 09/03/18at 17:48; Start 08/31/18 at 19:00 Insulin Human Lispro (HumaLOG) 0-5 UNITS TIDWMEALS SQ Last administered on 09/03/18at 17:54; Start 08/31/18 at 19:00 Furosemide (Lasix) 40 mg 1X ONCE PO Last administered on 09/01/18at 10:08; Start 09/01/18 at 10:00; Stop 09/01/18 at 10:01; Status DC Aspirin (Ecotrin) 81 mg DAILYWBKFT PO Last administered on 09/03/18at 08:52; Start 09/01/18 at 09:45 Metoprolol Succinate (Toprol Xl) 50 mg DAILY PO Last administered on 09/03/18 08:53; Start 09/03/18 at 09:00 Metoprolol Succinate (Toprol Xl) 25 mg 1X ONCE PO Last administered on 09/02/18at 15:14; Start 09/02/18 at 15:00; Stop 09/02/18 at 15:01; Status DC Lactobacillus Rhamnosus (Culturelle) 1 cap BID PO Last administered on 09/03/18 21:20; Start 09/03/18 at 09:00 Doxycycline Hyclate (Vibra-Tab) 100 mg BID PO Last administered on 09/03/18 21:20; Start 09/03/18 at 09:00 Methylprednisolone Sodium Succinate (SOLU-Medrol 40MG VIAL) 40 mg Q8HRS IV Last administered on 09/04/18at 05:54; Start 09/03/18 at 22:00 Active Scripts Active Reported Metformin Hcl Er (Metformin Hcl) 500 Mg Tab.er.24h 500 Mg PO DAILYWBKFT Metoprolol Succinate ( Xl ) (Metoprolol Succinate) 25 Mg Tab.er.24h 1 Tab PO DAILY Lisinopril 10 Mg Tablet 1 Tab PO DAILY Vitals/I & O Vital Sign - Last 24 Hours 09/03/18 09/03/18 09/03/18 09/03/18 08:00 08:52 08:53 11:00 Temp 97.9 97.9 Pulse 112 108 100 Resp 20 B/P (MAP) 160/80 160/80 154/76 (102) Pulse Ox 90 O2 Delivery Nasal Cannula Room Air O2 Flow Rate 2.0 09/03/18 09/03/18 09/03/18 09/03/18 15:00 16:05 19:30 20:00 Temp 98.0 97.9 98.0 97.9 Pulse 103 114 Resp 24 21 B/P (MAP) 169/76 (107) 157/88 (111) Pulse Ox 96 95 95 O2 Delivery Nasal Cannula Nasal Cannula Nasal Cannula Room Air O2 Flow Rate 2.0 2.0 2.0 09/03/18 09/03/18 09/03/18 09/04/18 20:28 23:38 23:54 03:29 Temp 97.6 98.2 97.6 98.2 Pulse 103 103 Resp 22 26 B/P (MAP) 168/86 (113) 139/80 (99) Pulse Ox 95 95 94 92 O2 Delivery Nasal Cannula Nasal Cannula Nasal Cannula Nasal Cannula O2 Flow Rate 2.0 2.0 2.0 2.0 09/04/18 04:10 Pulse Ox 95 O2 Delivery Nasal Cannula O2 Flow Rate 2.0 Intake and Output 09/03/18 09/03/18 09/04/18 15:00 23:00 07:00 Intake Total 480 ml 480 ml 700 ml Output Total 250 ml 100 ml Balance 230 ml 480 ml 600 ml MIKE REINOSO MD September 04, 2018 07:48
[2018-09-04] MEDS: LISINOPRIL 10 MG TABLET PO SCH (08:52)
[2018-09-04] MEDS: LACTOBACILLUS RHAMNOSUS GG 1 CAPSULE. PO SCH (08:52)
[2018-09-04] MEDS: ASPIRIN ENTERIC COATED 81 MG TABLET.DR. PO SCH (08:52)
[2018-09-04] MEDS: METOPROLOL SUCC 24HR ER 50 MG TAB.ER.24H. PO SCH (08:52)
[2018-09-04] MEDS: DOXYCYCLINE HYCLATE 100 MG TABLET PO SCH (08:52)
[2018-09-04] MEDS: INSULIN LISPRO 300 UNITS/3 ML INSULN.PEN. SQ SCH (08:55)
[2018-09-04 09:26] LABS: BASO % 0 % (0-3); EOS % 0 % (0-3); HEMATOCRIT 43.9 % (39.0-53.0); HEMOGLOBIN 14.1 g/dL (13.0-17.5); LYMPH # 0.6 x10^3/uL (1.0-4.8); LYMPH % 5 % (24-48); MEAN CORPUSCULAR HEMOGLOBIN 30 pg (25-35); MEAN CORPUSCULAR HGB CONC 32 g/dL (31-37); MEAN CORPUSCULAR VOLUME 93 fL (79-100); MONO # 0.7 x10^3/uL (0.0-1.1); MONO % 5 % (0-9); NEUT # 12.2 x10^3uL (1.8-7.7); NEUT % 91 % (31-73); PLATELET COUNT 190 x10^3/uL (140-400); RED BLOOD COUNT 4.74 x10^6/uL (4.30-5.70); RED CELL DISTRIBUTION WIDTH 14.2 % (11.5-14.5); WHITE BLOOD COUNT 13.5 x10^3/uL (4.0-11.0)
[2018-09-04 09:46] LABS: ALBUMIN 3.8 g/dL (3.4-5.0); ALBUMIN/GLOBULIN RATIO 1.1 (1.0-1.7); CALCIUM 9.3 mg/dL (8.5-10.1); CREATININE 0.8 mg/dL (0.7-1.3); GFR 97.3; POTASSIUM 4.5 mmol/L (3.5-5.1); TOTAL BILIRUBIN 0.4 mg/dL (0.2-1.0); TOTAL PROTEIN 7.4 g/dL (6.4-8.2)
--- NOTE | 2018-09-04 10:32 | PDOC ---
PULMONARY PROGRESS NOTES Subjective slowly improving Vitals Vital Signs Date Time Temp Pulse Resp B/P (MAP) Pulse Ox O2 Delivery O2 Flow Rate FiO2 09/04/18 09:01 95 Nasal Cannula 2.0 09/04/18 08:52 103 156/94 09/04/18 07:00 97.6 20 97.6 ROS: No Nausea, No Chest Pain, No Abdominal Pain, No Increase Cough General: Alert, No acute distress Lungs: Wheezing (faint) Cardiovascular: S1, S2 Abdomen: Soft Neuro Exam: Alert Extremities: No Edema Skin: Warm Labs Laboratory Tests Test 09/02/18 11:34 09/02/18 16:49 09/02/18 20:42 09/03/18 07:45 Glucose (Fingerstick) 274 mg/dL (70-99) 179 mg/dL (70-99) 264 mg/dL (70-99) White Blood Count 13.6 x10^3/uL (4.0-11.0) Red Blood Count 4.22 x10^6/uL (4.30-5.70) Hemoglobin 13.0 g/dL (13.0-17.5) Hematocrit 39.2 % (39.0-53.0) Mean Corpuscular Volume 93 fL (79-100) Mean Corpuscular Hemoglobin 31 pg (25-35) Mean Corpuscular Hemoglobin Concent 33 g/dL (31-37) Red Cell Distribution Width 13.8 % (11.5-14.5) Platelet Count 161 x10^3/uL (140-400) Neutrophils (%) (Auto) 92 % (31-73) Lymphocytes (%) (Auto) 4 % (24-48) Monocytes (%) (Auto) 4 % (0-9) Eosinophils (%) (Auto) 0 % (0-3) Basophils (%) (Auto) 0 % (0-3) Neutrophils # (Auto) 12.5 x10^3uL (1.8-7.7) Lymphocytes # (Auto) 0.6 x10^3/uL (1.0-4.8) Monocytes # (Auto) 0.5 x10^3/uL (0.0-1.1) Eosinophils # (Auto) 0.0 x10^3/uL (0.0-0.7) Basophils # (Auto) 0.0 x10^3/uL (0.0-0.2) Sodium Level 140 mmol/L (136-145) Potassium Level 4.4 mmol/L (3.5-5.1) Chloride Level 100 mmol/L (98-107) Carbon Dioxide Level 34 mmol/L (21-32) Anion Gap 6 (6-14) Blood Urea Nitrogen 19 mg/dL (8-26) Creatinine 0.8 mg/dL (0.7-1.3) Estimated GFR (Cockcroft-Gault) 97.3 BUN/Creatinine Ratio 24 (6-20) Glucose Level 211 mg/dL (70-99) Calcium Level 8.9 mg/dL (8.5-10.1) Total Bilirubin 0.3 mg/dL (0.2-1.0) Aspartate Amino Transf (AST/SGOT) 66 U/L (15-37) Alanine Aminotransferase (ALT/SGPT) 228 U/L (16-63) Alkaline Phosphatase 68 U/L (46-116) Total Protein 7.0 g/dL (6.4-8.2) Albumin 3.4 g/dL (3.4-5.0) Albumin/Globulin Ratio 0.9 (1.0-1.7) Test 09/03/18 07:56 09/03/18 11:41 09/03/18 17:14 09/03/18 20:36 Glucose (Fingerstick) 212 mg/dL (70-99) 253 mg/dL (70-99) 185 mg/dL (70-99) 314 mg/dL (70-99) Test 09/04/18 07:37 09/04/18 08:50 Glucose (Fingerstick) 177 mg/dL (70-99) White Blood Count 13.5 x10^3/uL (4.0-11.0) Red Blood Count 4.74 x10^6/uL (4.30-5.70) Hemoglobin 14.1 g/dL (13.0-17.5) Hematocrit 43.9 % (39.0-53.0) Mean Corpuscular Volume 93 fL (79-100) Mean Corpuscular Hemoglobin 30 pg (25-35) Mean Corpuscular Hemoglobin Concent 32 g/dL (31-37) Red Cell Distribution Width 14.2 % (11.5-14.5) Platelet Count 190 x10^3/uL (140-400) Neutrophils (%) (Auto) 91 % (31-73) Lymphocytes (%) (Auto) 5 % (24-48) Monocytes (%) (Auto) 5 % (0-9) Eosinophils (%) (Auto) 0 % (0-3) Basophils (%) (Auto) 0 % (0-3) Neutrophils # (Auto) 12.2 x10^3uL (1.8-7.7) Lymphocytes # (Auto) 0.6 x10^3/uL (1.0-4.8) Monocytes # (Auto) 0.7 x10^3/uL (0.0-1.1) Eosinophils # (Auto) 0.0 x10^3/uL (0.0-0.7) Basophils # (Auto) 0.0 x10^3/uL (0.0-0.2) Sodium Level 139 mmol/L (136-145) Potassium Level 4.5 mmol/L (3.5-5.1) Chloride Level 97 mmol/L (98-107) Carbon Dioxide Level 36 mmol/L (21-32) Anion Gap 6 (6-14) Blood Urea Nitrogen 17 mg/dL (8-26) Creatinine 0.8 mg/dL (0.7-1.3) Estimated GFR (Cockcroft-Gault) 97.3 BUN/Creatinine Ratio 21 (6-20) Glucose Level 198 mg/dL (70-99) Calcium Level 9.3 mg/dL (8.5-10.1) Total Bilirubin 0.4 mg/dL (0.2-1.0) Aspartate Amino Transf (AST/SGOT) 35 U/L (15-37) Alanine Aminotransferase (ALT/SGPT) 194 U/L (16-63) Alkaline Phosphatase 66 U/L (46-116) Total Protein 7.4 g/dL (6.4-8.2) Albumin 3.8 g/dL (3.4-5.0) Albumin/Globulin Ratio 1.1 (1.0-1.7) Laboratory Tests Test 09/03/18 11:41 09/03/18 17:14 09/03/18 20:36 09/04/18 07:37 Glucose (Fingerstick) 253 mg/dL (70-99) 185 mg/dL (70-99) 314 mg/dL (70-99) 177 mg/dL (70-99) Test 09/04/18 08:50 White Blood Count 13.5 x10^3/uL (4.0-11.0) Red Blood Count 4.74 x10^6/uL (4.30-5.70) Hemoglobin 14.1 g/dL (13.0-17.5) Hematocrit 43.9 % (39.0-53.0) Mean Corpuscular Volume 93 fL (79-100) Mean Corpuscular Hemoglobin 30 pg (25-35) Mean Corpuscular Hemoglobin Concent 32 g/dL (31-37) Red Cell Distribution Width 14.2 % (11.5-14.5) Platelet Count 190 x10^3/uL (140-400) Neutrophils (%) (Auto) 91 % (31-73) Lymphocytes (%) (Auto) 5 % (24-48) Monocytes (%) (Auto) 5 % (0-9) Eosinophils (%) (Auto) 0 % (0-3) Basophils (%) (Auto) 0 % (0-3) Neutrophils # (Auto) 12.2 x10^3uL (1.8-7.7) Lymphocytes # (Auto) 0.6 x10^3/uL (1.0-4.8) Monocytes # (Auto) 0.7 x10^3/uL (0.0-1.1) Eosinophils # (Auto) 0.0 x10^3/uL (0.0-0.7) Basophils # (Auto) 0.0 x10^3/uL (0.0-0.2) Sodium Level 139 mmol/L (136-145) Potassium Level 4.5 mmol/L (3.5-5.1) Chloride Level 97 mmol/L (98-107) Carbon Dioxide Level 36 mmol/L (21-32) Anion Gap 6 (6-14) Blood Urea Nitrogen 17 mg/dL (8-26) Creatinine 0.8 mg/dL (0.7-1.3) Estimated GFR (Cockcroft-Gault) 97.3 BUN/Creatinine Ratio 21 (6-20) Glucose Level 198 mg/dL (70-99) Calcium Level 9.3 mg/dL (8.5-10.1) Total Bilirubin 0.4 mg/dL (0.2-1.0) Aspartate Amino Transf (AST/SGOT) 35 U/L (15-37) Alanine Aminotransferase (ALT/SGPT) 194 U/L (16-63) Alkaline Phosphatase 66 U/L (46-116) Total Protein 7.4 g/dL (6.4-8.2) Albumin 3.8 g/dL (3.4-5.0) Albumin/Globulin Ratio 1.1 (1.0-1.7) Medications Active Scripts Medications Dose Route/Sig Max Daily Dose Days Date Category Metformin Hcl Er (Metformin Hcl) 500 Mg Tab.er.24h 500 Mg PO [id number] 08/31/18 Reported Metoprolol Succinate ( Xl ) (Metoprolol Succinate) 25 Mg Tab.er.24h 1 Tab PO DAILY 08/31/18 Reported Lisinopril 10 Mg Tablet 1 Tab PO DAILY 08/31/18 Reported Impression . : 1. Abnormal CT compatible with mild LLL pneumonia. 2. Suspect pneumonia, suspect gram negative. 3. Acute exacerbation of chronic obstructive pulmonary disease. 4. Acute respiratory failure. 5. Severe scoliosis.RESOLVED 6... AECOPD Plan . STEROIDS TAPER NEB SCOLIOSIS IS CONTRIBUTING TO CHRONIC SOA UP TO CHAIR WILL FOLLOW FOLLOW UP IN OFFICE ONCE D/C WITH DR STEFAN SWIFT TO D/C TODAY BD PRESCRIPTION WRITTEN LAKEISHA DOVE MD September 04, 2018 10:31
--- NOTE | 2018-09-04 10:55 | NUR ---
SS following up with discharge planning. SS received script for Nebulizer for home use. SS phoned and faxed order and referral to [facility], ; fax [phone]. [facility] checking insurance and will notify SS if payment is needed from pt. Pt's RN reported that pt is now on room air. Pt will return to home with spouse at discharge.
[2018-09-04 11:00] VITALS: BP 147/84
--- NOTE | 2018-09-04 11:18 | NUR ---
SS following up with discharge planning. [facility] contacted SS and reported that they have accepted order for Nebulizer. They requested that pt contact them at [phone] when he arrives home and they will deliver the Nebulizer to his home. Pt's RN notified.
[2018-09-04] MEDS ORDERED: DOXY100T PO (13:06)
[2018-09-04] MEDS ORDERED: IPRA3AMP29 NEB (13:06)
[2018-09-04] MEDS ORDERED: LORA0.5T96 PO (13:06)
--- NOTE | 2018-09-04 13:13 | PDOC3 ---
Discharge Summary Visit Information Date of Admission: Aug 31, 2018 Date of Discharge: September 04, 2018 Admitting Diagnosis: COPD exacerbation Final Diagnosis Problems Medical Problems: (1) Hypoxia Status: Acute Brief Hospital Course Allergies Allergies Coded Allergies Type Severity Reaction Last Updated Verified No Known Drug Allergies 08/31/18 No Vital Signs Vital Signs Date Time Temp Pulse Resp B/P (MAP) Pulse Ox O2 Delivery O2 Flow Rate FiO2 09/04/18 12:23 95 Nasal Cannula 2.0 09/04/18 11:00 97.4 101 20 147/84 (105) 97.4 Lab Results Laboratory Tests Test 09/02/18 16:49 09/02/18 20:42 09/03/18 07:45 09/03/18 07:56 Glucose (Fingerstick) 179 mg/dL (70-99) 264 mg/dL (70-99) 212 mg/dL (70-99) White Blood Count 13.6 x10^3/uL (4.0-11.0) Red Blood Count 4.22 x10^6/uL (4.30-5.70) Hemoglobin 13.0 g/dL (13.0-17.5) Hematocrit 39.2 % (39.0-53.0) Mean Corpuscular Volume 93 fL (79-100) Mean Corpuscular Hemoglobin 31 pg (25-35) Mean Corpuscular Hemoglobin Concent 33 g/dL (31-37) Red Cell Distribution Width 13.8 % (11.5-14.5) Platelet Count 161 x10^3/uL (140-400) Neutrophils (%) (Auto) 92 % (31-73) Lymphocytes (%) (Auto) 4 % (24-48) Monocytes (%) (Auto) 4 % (0-9) Eosinophils (%) (Auto) 0 % (0-3) Basophils (%) (Auto) 0 % (0-3) Neutrophils # (Auto) 12.5 x10^3uL (1.8-7.7) Lymphocytes # (Auto) 0.6 x10^3/uL (1.0-4.8) Monocytes # (Auto) 0.5 x10^3/uL (0.0-1.1) Eosinophils # (Auto) 0.0 x10^3/uL (0.0-0.7) Basophils # (Auto) 0.0 x10^3/uL (0.0-0.2) Sodium Level 140 mmol/L (136-145) Potassium Level 4.4 mmol/L (3.5-5.1) Chloride Level 100 mmol/L (98-107) Carbon Dioxide Level 34 mmol/L (21-32) Anion Gap 6 (6-14) Blood Urea Nitrogen 19 mg/dL (8-26) Creatinine 0.8 mg/dL (0.7-1.3) Estimated GFR (Cockcroft-Gault) 97.3 BUN/Creatinine Ratio 24 (6-20) Glucose Level 211 mg/dL (70-99) Calcium Level 8.9 mg/dL (8.5-10.1) Total Bilirubin 0.3 mg/dL (0.2-1.0) Aspartate Amino Transf (AST/SGOT) 66 U/L (15-37) Alanine Aminotransferase (ALT/SGPT) 228 U/L (16-63) Alkaline Phosphatase 68 U/L (46-116) Total Protein 7.0 g/dL (6.4-8.2) Albumin 3.4 g/dL (3.4-5.0) Albumin/Globulin Ratio 0.9 (1.0-1.7) Test 09/03/18 11:41 09/03/18 17:14 09/03/18 20:36 09/04/18 07:37 Glucose (Fingerstick) 253 mg/dL (70-99) 185 mg/dL (70-99) 314 mg/dL (70-99) 177 mg/dL (70-99) Test 09/04/18 08:50 09/04/18 11:47 White Blood Count 13.5 x10^3/uL (4.0-11.0) Red Blood Count 4.74 x10^6/uL (4.30-5.70) Hemoglobin 14.1 g/dL (13.0-17.5) Hematocrit 43.9 % (39.0-53.0) Mean Corpuscular Volume 93 fL (79-100) Mean Corpuscular Hemoglobin 30 pg (25-35) Mean Corpuscular Hemoglobin Concent 32 g/dL (31-37) Red Cell Distribution Width 14.2 % (11.5-14.5) Platelet Count 190 x10^3/uL (140-400) Neutrophils (%) (Auto) 91 % (31-73) Lymphocytes (%) (Auto) 5 % (24-48) Monocytes (%) (Auto) 5 % (0-9) Eosinophils (%) (Auto) 0 % (0-3) Basophils (%) (Auto) 0 % (0-3) Neutrophils # (Auto) 12.2 x10^3uL (1.8-7.7) Lymphocytes # (Auto) 0.6 x10^3/uL (1.0-4.8) Monocytes # (Auto) 0.7 x10^3/uL (0.0-1.1) Eosinophils # (Auto) 0.0 x10^3/uL (0.0-0.7) Basophils # (Auto) 0.0 x10^3/uL (0.0-0.2) Sodium Level 139 mmol/L (136-145) Potassium Level 4.5 mmol/L (3.5-5.1) Chloride Level 97 mmol/L (98-107) Carbon Dioxide Level 36 mmol/L (21-32) Anion Gap 6 (6-14) Blood Urea Nitrogen 17 mg/dL (8-26) Creatinine 0.8 mg/dL (0.7-1.3) Estimated GFR (Cockcroft-Gault) 97.3 BUN/Creatinine Ratio 21 (6-20) Glucose Level 198 mg/dL (70-99) Calcium Level 9.3 mg/dL (8.5-10.1) Total Bilirubin 0.4 mg/dL (0.2-1.0) Aspartate Amino Transf (AST/SGOT) 35 U/L (15-37) Alanine Aminotransferase (ALT/SGPT) 194 U/L (16-63) Alkaline Phosphatase 66 U/L (46-116) Total Protein 7.4 g/dL (6.4-8.2) Albumin 3.8 g/dL (3.4-5.0) Albumin/Globulin Ratio 1.1 (1.0-1.7) Glucose (Fingerstick) 219 mg/dL (70-99) Laboratory Tests Test 09/03/18 17:14 09/03/18 20:36 09/04/18 07:37 09/04/18 08:50 Glucose (Fingerstick) 185 mg/dL (70-99) 314 mg/dL (70-99) 177 mg/dL (70-99) White Blood Count 13.5 x10^3/uL (4.0-11.0) Red Blood Count 4.74 x10^6/uL (4.30-5.70) Hemoglobin 14.1 g/dL (13.0-17.5) Hematocrit 43.9 % (39.0-53.0) Mean Corpuscular Volume 93 fL (79-100) Mean Corpuscular Hemoglobin 30 pg (25-35) Mean Corpuscular Hemoglobin Concent 32 g/dL (31-37) Red Cell Distribution Width 14.2 % (11.5-14.5) Platelet Count 190 x10^3/uL (140-400) Neutrophils (%) (Auto) 91 % (31-73) Lymphocytes (%) (Auto) 5 % (24-48) Monocytes (%) (Auto) 5 % (0-9) Eosinophils (%) (Auto) 0 % (0-3) Basophils (%) (Auto) 0 % (0-3) Neutrophils # (Auto) 12.2 x10^3uL (1.8-7.7) Lymphocytes # (Auto) 0.6 x10^3/uL (1.0-4.8) Monocytes # (Auto) 0.7 x10^3/uL (0.0-1.1) Eosinophils # (Auto) 0.0 x10^3/uL (0.0-0.7) Basophils # (Auto) 0.0 x10^3/uL (0.0-0.2) Sodium Level 139 mmol/L (136-145) Potassium Level 4.5 mmol/L (3.5-5.1) Chloride Level 97 mmol/L (98-107) Carbon Dioxide Level 36 mmol/L (21-32) Anion Gap 6 (6-14) Blood Urea Nitrogen 17 mg/dL (8-26) Creatinine 0.8 mg/dL (0.7-1.3) Estimated GFR (Cockcroft-Gault) 97.3 BUN/Creatinine Ratio 21 (6-20) Glucose Level 198 mg/dL (70-99) Calcium Level 9.3 mg/dL (8.5-10.1) Total Bilirubin 0.4 mg/dL (0.2-1.0) Aspartate Amino Transf (AST/SGOT) 35 U/L (15-37) Alanine Aminotransferase (ALT/SGPT) 194 U/L (16-63) Alkaline Phosphatase 66 U/L (46-116) Total Protein 7.4 g/dL (6.4-8.2) Albumin 3.8 g/dL (3.4-5.0) Albumin/Globulin Ratio 1.1 (1.0-1.7) Test 09/04/18 11:47 Glucose (Fingerstick) 219 mg/dL (70-99) Brief Hospital Course The patient is a 62-year-old that went to see his primary care doctor, Dr. Joe Castañeda with a 2-3-day history of cough and mucus production. He quit tobacco 16 years ago. He does not experience acute exacerbation of COPD. The patient also had severe scoliosis. He was having a difficult time performing activities of daily living. He was admitted. Seen by pulm and cardiology in consultation. Had some trop elevation likely demand ischemia and mild diastolic CHF exacerbation likely 2/2 his COPD exacerbation. Improved with doxy nebs and diuresis. Acute hypoxic resp failure No evidence of pulmonary embolism. Coronary artery calcifications. Reflux of contrast into the hepatic veins. Correlate for elevated right heart pressures with mild congestive changes. Lung base airspace opacities likely atelectasis or infiltrates with trace bilateral pleural effusions.C/W PNEUMONIA - d/c on doxy Hypertensive urgency ACUTE COPD EXAC, slow to improve MILD elevation troponin i demand type ischemia PSVT -paroxysmal atrial tach on tele rather than PAFIB. Hyperglycemia plan out pt stress testing planned D/c on nebs, doxy Greater than 30 minutes spent on discharge. Discharge Information Condition at Discharge: Improved Follow Up: Weeks Disposition/Orders: D/C to Home Scheduled Doxycycline Hyclate (Doxycycline Hyclate) 100 Mg Tablet, 100 MG PO BID for Pneumonia for 5 Days, #10 Prescribed by: MIKE REINOSO MD on 09/04/18 1306 Ipratropium/Albuterol Sulfate (Duoneb 0.5-3(2.5) Mg/3 Ml) 3 Ml Ampul.neb, 3 ML NEB Q4HRS for COPD for 30 Days, #120 Ref 5 Prescribed by: MIKE REINOSO MD on 09/04/18 1306 Lisinopril (Lisinopril) 10 Mg Tablet, 1 TAB PO DAILY for HTN, #30 Ref 5 (Reported) Entered as Reported by: SAE CASH on 08/31/181606 Last Action: Continued on 08/31/181653 by GREER CHOPRA Metformin Hcl (Metformin Hcl Er) 500 Mg Tab.er.24h, 500 MG PO DAILYWBKFT for ANTI-DIABETIC, Ref 0 (Reported) Entered as Reported by: SAE CASH on 08/31/181606 Last Action: New Order on 08/31/181606 by SAE CASH Metoprolol Succinate (Metoprolol Succinate ( Xl )) 25 Mg Tab.er.24h, 1 TAB PO DAILY for HTN, #30 Ref 5 (Reported) Entered as Reported by: SAE CASH on 08/31/181606 Last Action: Continued on 08/31/181653 by GREER CHOPRA Scheduled PRN Lorazepam (Ativan) 0.5 Mg Tablet, 0.5 MG PO PRN Q4HRS PRN for ANXIETY / AGITATION for 6 Days, #6 Prescribed by: MIKE REINOSO MD on 09/04/18 1306 MIKE REINOSO MD September 04, 2018 13:13
--- NOTE | 2018-09-04 14:30 | NUR ---
PATIENT DISCHARGED TO HOME. DISCHARGE INSTRUCTIONS GIVEN. PIV AND HEART MONITOR REMOVED. ESCORTED PATIENT TO FRONT ENTRANCE PER WHEELCHAIR INTO A PRIVATE VEHICLE.
== END 2018-09-04 14:47 | disposition home or self-care (01) | DRG 189 ==
LOC: ER 12:14 → 2 SOUTH 13:50
PROVIDERS: ADMIT Family Medicine; ATTEND Family Medicine
DX: J96.01 Acute respiratory failure with hypoxia (principal); J18.1 Lobar pneumonia, unspecified organism; I50.33 Acute on chronic diastolic (congestive) heart failure; J44.1 Chronic obstructive pulmonary disease with (acute) exacerbation; I24.8 Other forms of acute ischemic heart disease; J44.0 Chronic obstructive pulmonary disease with (acute) lower respiratory infection; I16.0 Hypertensive urgency; I11.0 Hypertensive heart disease with heart failure; E11.65 Type 2 diabetes mellitus with hyperglycemia; E78.5 Hyperlipidemia, unspecified; I25.10 Atherosclerotic heart disease of native coronary artery without angina pectoris; I48.91 Unspecified atrial fibrillation; M41.9 Scoliosis, unspecified; Z80.1 Family history of malignant neoplasm of trachea, bronchus and lung; Z80.3 Family history of malignant neoplasm of breast; Z82.49 Family history of ischemic heart disease and other diseases of the circulatory system; Z87.891 Personal history of nicotine dependence; Z87.01 Personal history of pneumonia (recurrent); M19.90 Unspecified osteoarthritis, unspecified site
CPT/HCPCS: 36415; 71045; 71275; 80048; 80053; 80061; 81001; 82962; 83605; 83880; 84145; 84484; 85007; 85025; 85384; 85610; 85730; 87040; 87070; 87205; 93005; 93306; 94640; 94760; 96365; 96375; J0696; J1650; J1815; J2920; J2930; J3490; J7030; J7620; Q9967; 99285-25

== ENCOUNTER → 2018-12-28 | Outpatient (CLI) | payer SELFPAY ==
[~2018-12-28] MED LIST: DOXY100T PO; IPRA3AMP29 NEB; LISI10TA2 PO; LORA0.5T96 PO; METF500T9 PO; METO-239 PO
--- NOTE | 2018-12-28 12:33 | KCIC ---
CHEST PA LATERAL Clinical indications: Dyspnea. Shortness of air. History COPD. COMPARISON: August 31, 2018. Findings: No acute lung infiltrate or pleural effusion or pulmonary edema or lung mass or pneumothorax is seen. The heart size, pulmonary vasculature, mediastinum and both sedrick are stable. Severe thoracic kyphosis is again evident due to wedge compression deformities and fusion of the thoracolumbar junction. This was seen on a previous CT study August 31, 2018. Impression: No new radiographic abnormality is seen. Electronically signed by: Ramez Landrum MD (12/28/2018 12:31 PM) [id number]
== END | disposition home or self-care (01) ==
LOC: KCIC 10:38
PROVIDERS: ATTEND Family Medicine
DX: R06.00 Dyspnea, unspecified (principal); J44.9 Chronic obstructive pulmonary disease, unspecified; M40.295 Other kyphosis, thoracolumbar region; M43.25 Fusion of spine, thoracolumbar region
CPT/HCPCS: 71046

== ENCOUNTER → 2019-02-12 | Outpatient (CLI) | payer BC ==
[~2019-02-12] MED LIST changes: +IOHEXOL 300 MG/ML 100ML VIAL. IV ONE; +METF500T11 PO; -METF500T9 PO
--- NOTE | 2019-02-12 11:16 | KCIC ---
PQRS Compliance Statement: One or more of the following individualized dose reduction techniques were utilized for this examination: 1. Automated exposure control 2. Adjustment of the mA and/or kV according to patient size 3. Use of iterative reconstruction technique CT CHEST W/CONTRAST 02/12/2019 9:00 AM Indication: Dyspnea. COMPARISON: CT chest 08/31/2018. TECHNIQUE: Multiple axial CT images of the chest were obtained after the intravenous demonstration of nonionic contrast. Coronal and sagittal reformats are provided. FINDINGS: Thyroid gland is normal in appearance. Right paratracheal lymph node measures 5 mm by short axis. No new or enlarging thoracic lymph nodes. Heart size within normal limits. There is no pericardial effusion. Mild coronary artery vascular calcifications are identified. Stable left axillary lymph node measuring 7 mm. There is increased AP diameter of the chest. Interval resolution of trace left pleural effusion with adjacent compressive atelectasis versus infiltrate. No new airspace consolidation is identified. No new or enlarging solid noncalcified pulmonary nodules. No pulmonary vascular congestion or pneumothorax. Visualized portions of the upper abdomen appear normal. 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 IMPRESSION: 1. Interval resolution of trace left pleural effusion with adjacent compressive atelectasis versus infiltrate. Lungs are clear. No new or enlarging solid noncalcified pulmonary nodules. 2. Stable kyphoscoliosis with associated segmentation anomalies of the thoracolumbar spine. Findings result in increased AP dimension of the chest. Electronically signed by: Courtney Kevin MD (02/12/2019 11:13 AM) [id number]
== END | disposition home or self-care (01) ==
LOC: KCIC CT 08:47
PROVIDERS: ATTEND Family Medicine
DX: J90 Pleural effusion, not elsewhere classified (principal); I25.10 Atherosclerotic heart disease of native coronary artery without angina pectoris; M41.85 Other forms of scoliosis, thoracolumbar region
CPT/HCPCS: 71260; Q9967